=== PATIENT | female | born 1975 | race Caucasian/White ===

== ENCOUNTER → 2018-12-05 15:41 | Outpatient (CLI) | payer OTHER, SELFPAY ==
--- NOTE | 2018-12-05 | DI.MRI.S_ITS ---
PROCEDURE: MR BRAIN (IAC) WWO CON INDICATIONS: Sudden idiopathic hearing loss, right ear. Tinnitus TECHNIQUE: Noncontrast sagittal T1 spin echo, axial FLAIR, axial gradient echo, axial diffusion and ADC through the brain. Axial thin-slice 3D CISS, coronal TruFISP, axial T1 spin echo with fat saturation through the internal auditory canals. After the administration of contrast, thin slice axial and coronal T1 spin echo with fat saturation through the internal auditory canals, and axial T1 spin echo with fat saturation through the brain. COMPARISON: None. FINDINGS: Image quality: Excellent. Cerebellopontine angles: There is an enhancing mass seen within the deep/lateral aspect of the right internal auditory canal that measures 7 x 4 mm in greatest axial dimension, with a craniocaudal extent of 4 mm. No additional masses or abnormal enhancement can be seen involving the internal auditory canals or the cerebellopontine angle cisterns. CSF spaces: Ventricles are normal in size and shape. No extra-axial fluid collections. Basal cisterns are patent. Brain: No intracranial bleeds or mass effects. Alvarado-white matter interface is intact. No abnormal intracranial enhancement. Diffusion weighted images demonstrate no acute ischemic insults. Brainstem appears normal. Normal intravascular flow voids are present. Skull and face: Calvarial marrow signal is normal. Orbits appear normal. Sinuses: Sinuses and mastoids are clear. IMPRESSION: Enhancing mass seen within the right internal auditory canal. The appearance is worrisome for vestibular schwannoma. Dictated by: Prashanth Gutierrez M.D. on 12/05/2018 at 17:27 Approved by: Prashanth Gutierrez M.D. on 12/05/2018 at 17:29
== END ==
LOC: MRI 15:43
PROVIDERS: Family Provider Internal Medicine; PCP Internal Medicine; Visit Provider Otolaryngology
DX: H91.21 Sudden idiopathic hearing loss, right ear (principal); H93.11 Tinnitus, right ear; H61.891 Other specified disorders of right external ear
CPT/HCPCS: 70553; A9579

== ENCOUNTER 2019-07-13 08:25 | Emergency (ER) | payer OTHER, SELFPAY ==
--- NOTE | 2019-07-13 08:35 | ED.SKABFB ---
HPI - Skin/Abscess/Foreign Bdy General Chief complaint: Skin/Abscess/Foreign Body Stated complaint: insect bite on right ankle , fever Time Seen by Provider: 07/13/19 08:27 Source: patient and family Mode of arrival: Ambulatory Limitations: no limitations History of Present Illness HPI narrative: 43F former smoker with diabetes presents with a skin lesion on her right medial ankle for about the past week and then over the past day or so to the development of painful red, warm skin on her anterior limon to the area and if she has had fever off and on and some nausea but denies any vomiting or diarrhea. She denies any chest pain or shortness of breath. She denies runny nose or sore throat. Related Data Previous Rx's Medication Instructions Recorded zolpidem 10 mg tablet 20 mg PO BEDTIME PRN #60 tab 03/08/18 doxycycline monohydrate 100 mg PO BID 10 Days #20 cap 07/13/19 Review of Systems Constitutional Constitutional: Reports chills, Denies fatigue, Reports fever(s), Denies frequent falls, Denies lethargy and Denies weakness Eyes Eyes: Denies change in vision, Denies eye discharge, Denies irritation and Denies loss of vision ENT Ears, Nose, Mouth, and Throat: Denies change in voice, Denies dizziness, Denies neck pain, Denies sore throat and Denies throat swelling Cardiovascular Cardiovascular: Denies chest pain, Denies irregular heart rhythm, Denies lightheadedness, Denies palpitations, Denies dyspnea, Denies dyspnea on exertion and Denies orthopnea Respiratory Respiratory: Denies cough, Denies dyspnea, Denies dyspnea on exertion and Denies wheezing Gastrointestinal Gastrointestinal: Denies abdominal pain, Denies change in bowel habits, Denies diarrhea, Denies nausea and Denies vomiting Genitourinary Genitourinary: Denies hematuria, Denies flank pain, Denies urinary incontinence and Denies urinary urgency Musculoskeletal Musculoskeletal: Denies back pain, Denies muscle weakness, Denies neck pain, Denies numbness and Denies tingling Integumentary/Breasts Skin/Breast: Denies pruritus, Reports erythema, Denies rash, Reports skin pain, Reports skin swelling and Denies wounds Neurologic Neurologic: Denies behavioral changes, Denies confusion, Denies dizziness, Denies frequent falls, Denies loss of vision, Denies numbness, Denies tingling and Denies weakness Psychiatric Psychiatric: Denies anxiety, Denies behavioral changes, Denies confusion, Denies depression, Denies homicidal ideation and Denies suicidal ideation Endocrine Endocrine: Denies fatigue, Denies flushing and Denies palpitations Hematologic/Lymphatic Hematologic/Lymphatic: Denies easy bruising Allergic/Immunologic Allergic/Immunologic: Denies urticaria, Denies throat swelling and Denies wheezing Patient History Medical History (Updated 07/13/19 @ 10:04 by Goldy Kenyon DO) HTN (hypertension) (Chronic) Obesity (BMI 30-39.9) (Chronic) Obstructive sleep apnea of adult (Chronic) Primary insomnia (Chronic) Snoring (Chronic ~1987) Type 2 diabetes mellitus (Chronic) Social History Smoking Status: Former smoker Exam Narrative Exam Narrative: GENERAL: [43] year old patient appears stated age. Obese. A bit anxious HEAD: Atraumatic. Normocephalic. EYES: Pupils equal round and reactive. Extraocular motions intact. No scleral icterus. No injection or drainage. ENT: Nose without bleeding, purulent drainage. Throat without erythema, tonsillar hypertrophy or exudate. Airway patent. NECK: Trachea midline. Non tender CARDIOVASCULAR: Regular rate and rhythm without murmurs, gallops, or rubs. RESPIRATORY: Clear to auscultation. Breath sounds equal bilaterally. No wheezes, rales, or rhonchi. GASTROINTESTINAL: Abdomen soft, non-tender, nondistended. EXTREMITIES: No edema or joint tenderness. BACK: Nontender without deformity or crepitance. No flank tenderness. NEURO: AOx3. SKIN: Erythema of anterior RLE, well circumscribed, no drainage, induration, or fluctuance. Initial Vital Signs Initial Vital Signs: Vital Signs Temperature 97.9 F 07/13/19 08:36 Pulse Rate 90 07/13/19 08:36 Respiratory Rate 14 07/13/19 08:36 Blood Pressure 162/81 H 07/13/19 08:36 Pulse Oximetry 98 07/13/19 08:36 Course Orders Ordered: ED Orders 07/13/19 09:25 Basic Metabolic Panel Stat Blood Culture Stat Complete Blood Count AUTO DIFF Stat Lactate (Lactic Acid) Stat Discontinued Medications Sodium Chloride (Normal Saline 0.9%) 1,000 mls @ 1,000 mls/hr IV BOLUS ONE Stop: 07/13/19 09:34 Last Infusion: 07/13/19 10:43 Dose: 1,000 mls/hr Documented by: Admin: 07/13/19 09:41 Dose: 1,000 mls/hr Documented by: RANDALL Vital Signs Vital signs: Vital Signs - 8 hr 07/13/19 10:31 07/13/19 10:44 Temperature 98 F Pulse Rate 91 H 68 Respiratory Rate 20 13 Blood Pressure 154/88 H Blood Pressure [Left Arm] 164/84 H Pulse Oximetry 99 99 MDM - Skin/Abscess/Foreign Bdy Lab Data Result diagrams: 07/13/19 09:25 07/13/19 09:25 Labs: Lab Results 07/13/19 07/13/19 07/13/19 Range/Units 09:25 09:25 09:25 WBC 9.1 (4.5-11.0) X10^3/uL RBC 4.67 (4.0-5.2) X10^6/uL Hgb 14.5 (12.0-16.0) g/dL Hct 40.4 (36-46) % MCV 86.5 (80-100) fL MCH 30.9 (26-34) PG MCHC 35.8 (30-36) % RDW 12.7 (11.6-14.8) % Plt Count 200 (150-400) X10^3/uL Neut % (Auto) 78.7 H (50-75) % Lymph % (Auto) 13.3 L (25-40) % [place] % (Auto) 6.2 (3-14) % Eos % (Auto) 1.1 L (2-4) % Baso % (Auto) 0.7 (0-2) % Neut # (Auto) 7100 H (5976-1304) /uL Lymph # (Auto) 1200 (2008-7733) /uL [place] # (Auto) 600 (0-900) /uL Eos # (Auto) 100 (0-450) /uL Baso # (Auto) 100 (0-100) /uL Sodium 133 L (137-145) mmol/L Potassium 4.0 (3.4-5.1) mmol/L Chloride 98 (98-107) mmol/L Carbon Dioxide 27 (22-32) mmol/L BUN 12 (7-17) mg/dL Creatinine 0.40 L (0.52-1.04) mg/dL Estimated GFR > 60.0 (>60) mL/min BUN/Creatinine Ratio 30.0 H (6-22) Glucose 460 H (70-100) mg/dL Lactate 1.2 (0.7-2.1) mmol/L Calcium 8.8 (8.4-10.2) mg/dL MDM Narrative Medical decision making narrative: Patient with isolated right anterior limon cellulitis and no septic findings. Vitals are stable and labs are very reassuring. Return precautions given and questions answered to her apparent satisfaction Discharge Plan Departure Patient Disposition: Home Clinical Impression: Cellulitis of leg, right Discharge Date/Time: 07/13/19 10:46 Instructions: DI for Cellulitis -- Adult Activity Restrictions/Additional Instructions: *You have been diagnosed with [acute Right leg cellulitis ] *What to do: *Take medications as directed: prescrip *Follow up with your primary care provider in 2-3 days, call for an appointment. Let them know you were seen in the Emergency Department and that we ask that you be seen in follow up *Return to ER if you should have any new, worsening or concerning symptoms, such as [ ] Prescriptions: New doxycycline monohydrate 100 mg capsule 100 mg PO BID 10 Days Qty: 20 RF: 0 No Action zolpidem 10 mg tablet 20 mg PO BEDTIME PRN (Reason: insomnia) Qty: 60 RF: 2 Referrals: Trino Bales MD [Primary Care Provider] -
[2019-07-13 08:36] VITALS: BP 162/81; PULSE 90; RESP 14; TEMP 36.6; O2SAT 98
[2019-07-13 09:41] LABS: Add Manual Diff / Slide Review NO; Basophils Absolute Auto 100 /uL (0-100); Basophils Percent Auto 0.7 % (0-2); Eosinophils Absolute Auto 100 /uL (0-450); Eosinophils Percent Auto 1.1 % (2-4); Hematocrit 40.4 % (36-46); Hemoglobin 14.5 g/dL (12.0-16.0); Lymphocytes Absolute Auto 1200 /uL (1100-4500); Lymphocytes Percent Auto 13.3 % (25-40); Mean Corpuscular HGB Conc 35.8 % (30-36); Mean Corpuscular Hemoglobin 30.9 PG (26-34); Mean Corpuscular Volume 86.5 fL (80-100); Monocytes Absolute Auto 600 /uL (0-900); Monocytes Percent Auto 6.2 % (3-14); Neutrophils Absolute Auto 7100 /uL (1500-7000); Neutrophils Percent Auto 78.7 % (50-75); Platelet Count 200 X10^3/uL (150-400); Red Blood Cell Count 4.67 X10^6/uL (4.0-5.2); Red Cell Distribution Width 12.7 % (11.6-14.8); White Blood Cell Count 9.1 X10^3/uL (4.5-11.0)
[2019-07-13] MEDS: SODIUM CHLORIDE 0.9% 1,000 ML 1000 ML IV (09:41)
[2019-07-13 09:53] LABS: Lactate (Lactic Acid) 1.2 mmol/L (0.7-2.1)
[2019-07-13 09:54] LABS: Blood Urea Nitrogen 12 mg/dL (7-17); Calcium 8.8 mg/dL (8.4-10.2); Carbon Dioxide 27 mmol/L (22-32); Chloride 98 mmol/L (98-107); Estimated Glomerular Filt Rate > 60.0 mL/min (>60); Glucose 460 mg/dL (70-100); HEMOLYSIS < 15 (0-50); Sodium 133 mmol/L (137-145)
[2019-07-13 10:31] VITALS: BP 164/84; PULSE 91; RESP 20; O2SAT 99
[2019-07-13 10:44] VITALS: BP 154/88; PULSE 68; RESP 13; TEMP 36.6; O2SAT 99
== END 2019-07-13 10:46 | disposition home or self-care (01) ==
PROVIDERS: Emergency Provider Emergency Medicine; Family Provider Internal Medicine; PCP Internal Medicine
DX: L03.115 Cellulitis of right lower limb (principal); Y99.0 Civilian activity done for income or pay
CPT/HCPCS: 36415; 80048; 83605; 85025; 87040; 96360; 99284

== ENCOUNTER 2019-07-15 09:16 | Inpatient (IN) | payer OTHER, SELFPAY ==
[2019-07-15] VITALS (9 sets, daily range): BP systolic 138–174; BP diastolic 71–100; PULSE 80–101; RESP 14–19; TEMP 36.2–37.6; O2SAT 96–100; BMI 49.4
--- NOTE | 2019-07-15 09:54 | ED.SKABFB ---
HPI - Skin/Abscess/Foreign Bdy General Chief complaint: Skin/Abscess/Foreign Body Stated complaint: skin infection right leg Time Seen by Provider: 07/15/19 09:46 Source: patient Mode of arrival: Ambulatory History of Present Illness HPI narrative: Patient is a 43-year-old female who presents with worsening rash on her right leg. She was seen evaluated here 2 days ago started on doxycycline she has had 5 doses as it has gotten significantly worse. She says that she initially was at work she had a bug bite on the lower part of her ankle. There is drainage tear initially she says that has overall improved however she has significant swelling and redness up to just below her knee. It has spread significantly beyond the previously marked decline. She has had fever last night. She does complain of pain and would like something for pain MD complaint: rash Location: RLE Severity: moderate Related Data Home Medications Medication Instructions Recorded Confirmed fluoxetine 60 mg PO QPM 07/15/19 07/15/19 glyburide 5 mg PO BID 07/15/19 07/15/19 losartan 25 mg PO DAILY 07/15/19 07/15/19 methylphenidate HCl 10 mg PO TID 07/15/19 07/15/19 Previous Rx's Medication Instructions Recorded zolpidem 10 mg tablet 20 mg PO BEDTIME PRN #60 tab 03/08/18 doxycycline monohydrate 100 mg PO BID 10 Days #20 cap 07/13/19 Review of Systems Review of Systems Narrative: GENERAL:+ fever Denies chills, fatigue, malaise,sweats, travel HEENT: Denies sinus pain, ear pain, sore throat, difficulty swallowing, neck pain RESPIRATORY: Denies dyspnea, cough, wheezing, hemoptysis, sputum. CARDIOVASCULAR: Denies chest pain, palpitations, orthopnea, edema GASTROINTESTINAL: Denies nausea, vomiting, abdominal pain, diarrhea, constipation, melena. : Denies dysuria, frequency, incontinence, hematuria, urinary retention, flank pain. MUSCULOSKELETAL: Denies weakness, joint pain, or bony pain SKIN: See HPI NEUROLOGIC: Denies weakness, dizziness, headache, numbness, change in speech, confusion PSYCHIATRIC: No concerning psychosocial issues. 12 point review of systems is negative except for those stated above and HPI Patient History Medical History HTN (hypertension) (Chronic) Obesity (BMI 30-39.9) (Chronic) Obstructive sleep apnea of adult (Chronic) Primary insomnia (Chronic) Snoring (Chronic ~1987) Type 2 diabetes mellitus (Chronic) Social History household members: significant other Smoking Status: Former smoker Smoking Status: Former smoker alcohol intake frequency: holidays/special occasions only Substance Use Type: marijuana Exam Initial Vital Signs Initial Vital Signs: Vital Signs Temperature 97.3 F L 07/15/19 09:19 Pulse Rate 82 07/15/19 09:19 Respiratory Rate 14 07/15/19 09:19 Blood Pressure 173/100 H 07/15/19 09:19 Pulse Oximetry 98 07/15/19 09:19 GENERAL: Well-appearing, well-nourished and in no acute distress. HEENT: Head atraumatic,EOMI, pupils reactive CARDIOVASCULAR: Regular rate and rhythm without murmurs, rubs or gallops. RESPIRATORY: Breath sounds equal bilaterally, no wheezes rales or rhonchi. ABDOMEN: Soft, nontender. Normoactive bowel sounds all 4 quadrants. No guarding or rebound. EXTREMITIES: Normal range of motion, no clubbing or edema. Neurovascularly intact NEUROLOGICAL: Alert and oriented x4.Normal gait and speech. Cranial nerves II through XII grossly intact. SKIN: Blanchable erythema right lower leg no vesicles no fluctuation or abscess. She does have couple it areas of scabs but these do not appear infected Course Orders Ordered: ED Orders 07/15/19 09:50 Complete Blood Count AUTO DIFF Stat Comprehensive Metabolic Panel Stat D Dimer Stat Lactate (Lactic Acid) Stat Procalcitonin Stat 07/15/19 10:40 US periph venous low extrem rt Stat 07/15/19 10:45 Blood Culture Stat Acetaminophen (Tylenol) 650 mg PO Q6HR PRN PRN Reason: Fever/Mild Pain (1-3) Last Admin: 07/15/19 14:20 Dose: 650 mg Documented by: CHAZ Allen Hydrox/Mg Hydrox/Simethicone (Maalox Plus) 30 ml PO Q6HR PRN PRN Reason: Dyspepsia Bisacodyl (Dulcolax) 10 mg AK DAILY PRN PRN Reason: Constipation Calcium Carbonate (Tums) 1,000 mg PO Q4HR PRN PRN Reason: Dyspepsia Dextrose (D50w) 25 gm IV PRN PRN; Protocol PRN Reason: Hypoglycemia Fluoxetine HCl (Prozac) 60 mg PO QPM [facility] Glyburide (Glyburide) 5 mg PO BID [facility] Heparin Sodium (Porcine) (Heparin) 5,000 unit SUBCUT BID [facility] Sodium Chloride (Normal Saline 0.9%) 1,000 mls @ 100 mls/hr IV CONT [facility] Stop: 07/16/19 00:14 Last Admin: 07/15/19 14:40 Dose: 100 mls/hr Documented by: CHAZ Ceftriaxone Sodium/Dextrose (Rocephin) 2 gm in 50 mls @ 100 mls/hr IV Q24H [facility] Vancomycin HCl/Dextrose (Vancomycin) 1,500 mg in 300 mls @ 200 mls/hr IV Q8H [facility] Insulin Aspart (Novolog Flexpen) 0 unit SUBCUT ACHS [facility]; Protocol Ketorolac Tromethamine (Toradol) 30 mg IV Q6HR PRN PRN Reason: Pain, Severe (7-10) Stop: 07/20/19 13:31 Last Admin: 07/15/19 14:09 Dose: 30 mg Documented by: CHAZ Losartan Potassium (Cozaar) 25 mg PO DAILY [facility] Magnesium Hydroxide (Milk Of Magnesia) 30 ml PO DAILY PRN PRN Reason: Constipation Naloxone HCl (Narcan) 0.2 mg IV Q2MIN PRN PRN Reason: Opiate Reversal Ondansetron HCl (Zofran) 4 mg IV Q6HR PRN PRN Reason: Nausea And Vomiting Promethazine HCl (Phenadoz) 12.5 mg AK Q6HR PRN PRN Reason: Nausea And Vomiting Vancomycin HCl (Vancomycin Trough) 1 request MISC 1030 [facility] Stop: 07/16/19 10:31 Zolpidem Tartrate (Ambien) 20 mg PO BEDTIME PRN PRN Reason: insomnia Discontinued Medications Vancomycin HCl/Dextrose (Vancomycin) 2,000 mg in 400 mls @ 200 mls/hr IV NOW ONE Stop: 07/15/19 12:02 Last Admin: 07/15/19 10:27 Dose: 200 mls/hr Documented by: RANDALL Ceftriaxone Sodium/Dextrose (Rocephin) 2 gm in 50 mls @ 100 mls/hr IV NOW ONE Stop: 07/15/19 10:32 Last Infusion: 01/13/20 11:33 Dose: 0 mls/hr Documented by: Admin: 07/15/19 10:22 Dose: 100 mls/hr Documented by: RANDALL Insulin Human Regular (Humulin R) 10 unit IV NOW ONE Stop: 07/15/19 14:13 Last Admin: 07/15/19 14:49 Dose: 10 unit Documented by: CHAZ Cosigned by: IVY Vital Signs Vital signs: Vital Signs - 8 hr 07/15/19 09:19 07/15/19 11:21 Temperature 97.3 F L 99.6 F Pulse Rate 82 95 H Respiratory Rate 14 19 Blood Pressure 173/100 H Blood Pressure [Right Wrist] 171/82 H Pulse Oximetry 98 100 MDM - Skin/Abscess/Foreign Bdy Lab Data Attestation: I reviewed the patient's lab results. Result diagrams: 07/15/19 09:50 07/15/19 09:50 Labs: Lab Results 07/15/19 07/15/19 07/15/19 Range/Units 09:50 09:50 09:50 WBC 7.8 (4.5-11.0) X10^3/uL RBC 4.87 (4.0-5.2) X10^6/uL Hgb 14.7 (12.0-16.0) g/dL Hct 42.0 (36-46) % MCV 86.1 (80-100) fL MCH 30.2 (26-34) PG MCHC 35.0 (30-36) % RDW 12.7 (11.6-14.8) % Plt Count 252 (150-400) X10^3/uL Neut % (Auto) 68.4 (50-75) % Lymph % (Auto) 20.0 L (25-40) % [place] % (Auto) 8.7 (3-14) % Eos % (Auto) 2.0 (2-4) % Baso % (Auto) 0.9 (0-2) % Neut # (Auto) 5400 (2560-9393) /uL Lymph # (Auto) 1600 (6343-4557) /uL [place] # (Auto) 700 (0-900) /uL Eos # (Auto) 200 (0-450) /uL Baso # (Auto) 100 (0-100) /uL D-Dimer (<230) ng/mL Sodium 136 L (137-145) mmol/L Potassium 4.3 (3.4-5.1) mmol/L Chloride 97 L (98-107) mmol/L Carbon Dioxide 30 (22-32) mmol/L BUN 11 (7-17) mg/dL Creatinine 0.40 L (0.52-1.04) mg/dL Estimated GFR > 60.0 (>60) mL/min BUN/Creatinine Ratio 27.5 H (6-22) Glucose 412 H (70-100) mg/dL Hemoglobin A1c (4.0-6.0) % Lactate 1.4 (0.7-2.1) mmol/L Calcium 9.8 (8.4-10.2) mg/dL Total Bilirubin 0.8 (0.2-1.3) mg/dL AST 32 (14-36) IU/L ALT 29 (<35) IU/L Alkaline Phosphatase 83 (38-126) U/L Total Protein 7.6 (6.3-8.2) g/dL Albumin 4.3 (3.5-5.0) g/dL Globulin 3.3 (1.7-4.1) g/dL Albumin/Globulin Ratio 1.3 (1.0-2.8) Procalcitonin (<0.5) ng/mL 07/15/19 07/15/19 07/15/19 Range/Units 09:50 09:50 09:50 WBC (4.5-11.0) X10^3/uL RBC (4.0-5.2) X10^6/uL Hgb (12.0-16.0) g/dL Hct (36-46) % MCV (80-100) fL MCH (26-34) PG MCHC (30-36) % RDW (11.6-14.8) % Plt Count (150-400) X10^3/uL Neut % (Auto) (50-75) % Lymph % (Auto) (25-40) % [place] % (Auto) (3-14) % Eos % (Auto) (2-4) % Baso % (Auto) (0-2) % Neut # (Auto) (7538-8101) /uL Lymph # (Auto) (6869-9792) /uL [place] # (Auto) (0-900) /uL Eos # (Auto) (0-450) /uL Baso # (Auto) (0-100) /uL D-Dimer 307 H (<230) ng/mL Sodium (137-145) mmol/L Potassium (3.4-5.1) mmol/L Chloride (98-107) mmol/L Carbon Dioxide (22-32) mmol/L BUN (7-17) mg/dL Creatinine (0.52-1.04) mg/dL Estimated GFR (>60) mL/min BUN/Creatinine Ratio (6-22) Glucose (70-100) mg/dL Hemoglobin A1c 11.0 H (4.0-6.0) % Lactate (0.7-2.1) mmol/L Calcium (8.4-10.2) mg/dL Total Bilirubin (0.2-1.3) mg/dL AST (14-36) IU/L ALT (<35) IU/L Alkaline Phosphatase (38-126) U/L Total Protein (6.3-8.2) g/dL Albumin (3.5-5.0) g/dL Globulin (1.7-4.1) g/dL Albumin/Globulin Ratio (1.0-2.8) Procalcitonin 0.37 (<0.5) ng/mL Imaging Data US - DVT: Radiologist's Impression: PROCEDURE: US PERIPH VENOUS LOW EXTREM RT INDICATIONS: +DIMER TECHNIQUE: Real-time imaging, as well as color and pulse Doppler interrogation, were performed of the lower extremity deep veins from the inguinal ligament to the popliteal fossa. COMPARISON: None. FINDINGS: The common femoral, femoral and popliteal veins are normally compressible, and free of intraluminal thrombus. Color and pulse Doppler demonstrate normal phasic intraluminal flow. There is normal augmentation response to distal compression maneuver. IMPRESSION: No evidence of deep vein thrombosis of the bilateral lower extremities. Dictated by: Blaise Eller M.D. on 07/15/2019 at 10:19 MDM Narrative Medical decision making narrative: Patient has failed outpatient treatment. You can see that she has significant worsening erythema of her right lower leg. She did have an elevated D-dimer with a negative Doppler study. This seems to be more cellulitis rather than DVT. She does have elevated procalcitonin however no leukocytosis or fever likely due to partial treatment. She is given vancomycin and Rocephin. Dr. rubio updated on patient's symptoms test results and is happy to accept patient. Discharge Plan Departure Patient Disposition: Admitted As Inpatient Clinical Impression: Cellulitis Qualifiers: Site of cellulitis: extremity Site of cellulitis of extremity: lower extremity Laterality: right Qualified Code(s): L03.115 - Cellulitis of right lower limb Discharge Date/Time: 07/15/19 13:01 Admit Date/Time: 07/15/19 12:04 Admit Provider: Trinidad Rubio
[2019-07-15 10:08] LABS: Add Manual Diff / Slide Review NO; Basophils Absolute Auto 100 /uL (0-100); Basophils Percent Auto 0.9 % (0-2); Eosinophils Absolute Auto 200 /uL (0-450); Hemoglobin 14.7 g/dL (12.0-16.0); Lymphocytes Absolute Auto 1600 /uL (1100-4500); Mean Corpuscular Hemoglobin 30.2 PG (26-34); Mean Corpuscular Volume 86.1 fL (80-100); Monocytes Absolute Auto 700 /uL (0-900); Monocytes Percent Auto 8.7 % (3-14); Neutrophils Absolute Auto 5400 /uL (1500-7000); Neutrophils Percent Auto 68.4 % (50-75); Platelet Count 252 X10^3/uL (150-400); Red Blood Cell Count 4.87 X10^6/uL (4.0-5.2); Red Cell Distribution Width 12.7 % (11.6-14.8); White Blood Cell Count 7.8 X10^3/uL (4.5-11.0)
[2019-07-15 10:10] LABS: Lactate (Lactic Acid) 1.4 mmol/L (0.7-2.1)
[2019-07-15 10:11] LABS: Alanine Aminotransferase 29 IU/L (<35); Albumin 4.3 g/dL (3.5-5.0); Albumin Globulin Ratio 1.3 (1.0-2.8); Alkaline Phosphatase 83 U/L (38-126); Aspartate Aminotransferase 32 IU/L (14-36); BUN Creatinine Ratio 27.5 (6-22); Bilirubin Total 0.8 mg/dL (0.2-1.3); Blood Urea Nitrogen 11 mg/dL (7-17); Calcium 9.8 mg/dL (8.4-10.2); Carbon Dioxide 30 mmol/L (22-32); Chloride 97 mmol/L (98-107); Estimated Glomerular Filt Rate > 60.0 mL/min (>60); Globulin 3.3 g/dL (1.7-4.1); Glucose 412 mg/dL (70-100); HEMOLYSIS < 15 (0-50); Potassium 4.3 mmol/L (3.4-5.1); Sodium 136 mmol/L (137-145); Total Protein 7.6 g/dL (6.3-8.2)
[2019-07-15] MEDS: CEFTRIAXONE 2 GM/50 ML FROZ.PIGGY IV (10:22)
[2019-07-15 10:27] LABS: D Dimer 307 ng/mL (<230)
[2019-07-15] MEDS: VANCOMYCIN 2,000 MG/400 ML PIGGYBACK 200 MG IV (10:27)
--- NOTE | 2019-07-15 10:40 | DI.US.S_ITS ---
PROCEDURE: US PERIPH VENOUS LOW EXTREM RT INDICATIONS: +DIMER TECHNIQUE: Real-time imaging, as well as color and pulse Doppler interrogation, were performed of the lower extremity deep veins from the inguinal ligament to the popliteal fossa. COMPARISON: None. FINDINGS: The common femoral, femoral and popliteal veins are normally compressible, and free of intraluminal thrombus. Color and pulse Doppler demonstrate normal phasic intraluminal flow. There is normal augmentation response to distal compression maneuver. IMPRESSION: No evidence of deep vein thrombosis of the bilateral lower extremities. Dictated by: Blaise Eller M.D. on 07/15/2019 at 10:19 Approved by: Blaise Eller M.D. on 07/15/2019 at 10:19
[2019-07-15 10:52] LABS: Procalcitonin 0.37 ng/mL (<0.5)
--- NOTE | 2019-07-15 12:58 | PC.NURSE ---
Day shift: Pt on unit from ED at approx 1300. Pt is ambulatory. A&Ox4. Calm and cooperative. IV antibiotic infusing that started in ED. Will continue on AC unit. Oriented to room and call light. Pt's Mother in room for support.
[2019-07-15] MEDS: KETOROLAC 30 MG/ML VIAL IV ×2 (14:09→19:40)
--- NOTE | 2019-07-15 14:15 | PM.HP.1 ---
History of Present Illness History of Present Illness Date Patient Seen: 07/15/19 Chief complaint: skin infection right leg Narrative: Mary Anne Maria is a 43-year-old female with a past medical history significant for hypertension, diabetes mellitus type 2, non-insulin using, with complication of neuropathy, obstructive sleep apnea on CPAP, right temporal meningioma with chronic right-sided tinnitus, depression with anxiety, and attention deficit disorder who presented to the ED due to worsening cellulitis. The patient reports that she was previously seen in the ED 2 days ago for right lower extremity rash and discharged on doxycycline. She has had approximately 5 doses of doxycycline. Her rash has worsened prompting her to be re-evaluated. She reports that the rash is hot, has a burning quality at rest and causes excruciating pain with standing. She believes the rash developed after an insect bite on her Achilles. She reports associated high fevers up to 102.7? F and 1 episode of nausea with vomiting. She endorses chronic lightheadedness due to meningioma and polydipsia and polyuria due to uncontrolled diabetes. She otherwise has no other symptoms and denies headache, vision changes, chest pain, shortness of breath, nausea, vomiting, chills, dysuria, diarrhea or constipation. Patient History Medical History (Updated 07/15/19 @ 16:36 by Trinidad Corrigan DO) Attention deficit disorder (Acute) Depression with anxiety (Acute) HTN (hypertension) (Chronic) Meningioma (Acute) Morbid obesity with BMI of 45.0-49.9, adult (Acute) Obstructive sleep apnea of adult (Chronic) Primary insomnia (Chronic) Snoring (Chronic ~1987) Tinnitus of right ear (Acute) Type 2 diabetes mellitus (Chronic) Surgical History History of cholecystectomy (Acute) Family & Social History Family History Father No problems noted. Mother Diabetes mellitus Social History: household members significant other Prior Living Arrangements House Safety & Behavioral: Feels Safe in Current Yes Environment Been Physically Hurt or No Threatened By a Person Suicidal Ideation Description None Suicide Plan Description No Plan Tobacco & Substance use: Smoking Status Former smoker alcohol intake frequency holiday/special occasion Substance Use Type marijuana The patient has a partner of 15 years. She has no children. 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 She is a former smoker of 1 pack per week x5 years. She does not use alcohol. She vaporizes marijuana. Meds Home Medications and Allergies Home Medications Medication Instructions Recorded Confirmed Type zolpidem 10 mg tablet 20 mg PO BEDTIME PRN #60 tab 03/08/18 07/15/19 Rx doxycycline monohydrate 100 mg PO BID 10 Days #20 cap 07/13/19 07/15/19 Rx fluoxetine 60 mg PO QPM 07/15/19 07/15/19 History glyburide 5 mg PO BID 07/15/19 07/15/19 History losartan 25 mg PO DAILY 07/15/19 07/15/19 History methylphenidate HCl 10 mg PO TID 07/15/19 07/15/19 History Review of Systems Review of Systems Narrative: A 10 system comprehensive review of systems was conducted with the patient and found to be negative except as above in the History of Present Illness. Exam Vital Signs (past 8 hours): - 07/15/19 09:19 07/15/19 11:21 07/15/19 12:28 Temperature 97.3 F L 99.6 F Pulse Rate 82 95 H 99 H Respiratory Rate 14 19 19 Blood Pressure 173/100 H Blood Pressure [Right Wrist] 171/82 H 174/86 H Pulse Oximetry 98 100 98 07/15/19 13:15 07/15/19 13:53 Temperature 98.7 F 98.7 F Pulse Rate 101 H 101 H Respiratory Rate 17 17 Blood Pressure 147/84 H 147/84 H Blood Pressure [Right Wrist] Pulse Oximetry 98 98 Oxygen Delivery Method Room Air Oxygen Flow Rate 0 Narrative Exam Narrative: General: Middle-aged morbidly obese female lying in bed and in no acute distress, well-developed, well-nourished, appropriately interactive. HEENT: Normocephalic, atraumatic. External ears without defect. Pupils equal, round, and reactive to light. Anicteric sclerae, moist conjunctivae, and no lid lag. Oropharynx free of erythema and cobble stoning with moist mucosa. Neck: Supple with full range of motion. No lymphadenopathy or thyromegaly. Cardiovascular: Regular rate and rhythm without murmurs, rubs, or gallops appreciated. Pulmonary: Clear to auscultation bilaterally without crackles, wheezes, or rhonchi. Normal respiratory effort with no use of accessory muscles. Abdomen: Soft, obese, bowel sounds present, nontender, nondistended. No hepatosplenomegaly or masses appreciated. Extremities: No clubbing, cyanosis, or edema. Right lower extremity with well demarcated and outlined rash that is blotchy, erythematous, and warm over medial aspect of right leg from ankle to knee. Skin: Normal temperature, turgor, and texture; no rash, ulcers, or subcutaneous nodules appreciated. Neurological: Cranial nerves grossly intact. Psychiatric: Normal mood and affect. Alert and oriented to person, place, and time. Objective Labs Result Diagrams: 07/15/19 09:50 07/15/19 09:50 Labs: Laboratory Results - last 24 hr 07/15/19 07/15/19 07/15/19 09:50 09:50 09:50 WBC 7.8 RBC 4.87 Hgb 14.7 Hct 42.0 MCV 86.1 MCH 30.2 MCHC 35.0 RDW 12.7 Plt Count 252 Neut % (Auto) 68.4 Lymph % (Auto) 20.0 L [place] % (Auto) 8.7 Eos % (Auto) 2.0 Baso % (Auto) 0.9 Neut # (Auto) 5400 Lymph # (Auto) 1600 [place] # (Auto) 700 Eos # (Auto) 200 Baso # (Auto) 100 D-Dimer Sodium 136 L Potassium 4.3 Chloride 97 L Carbon Dioxide 30 BUN 11 Creatinine 0.40 L Estimated GFR > 60.0 BUN/Creatinine Ratio 27.5 H Glucose 412 H Lactate 1.4 Calcium 9.8 Total Bilirubin 0.8 AST 32 ALT 29 Alkaline Phosphatase 83 Total Protein 7.6 Albumin 4.3 Globulin 3.3 Albumin/Globulin Ratio 1.3 Procalcitonin 07/15/19 07/15/19 09:50 09:50 WBC RBC Hgb Hct MCV MCH MCHC RDW Plt Count Neut % (Auto) Lymph % (Auto) Clay % (Auto) Eos % (Auto) Baso % (Auto) Neut # (Auto) Lymph # (Auto) Clay # (Auto) Eos # (Auto) Baso # (Auto) D-Dimer 307 H Sodium Potassium Chloride Carbon Dioxide BUN Creatinine Estimated GFR BUN/Creatinine Ratio Glucose Lactate Calcium Total Bilirubin AST ALT Alkaline Phosphatase Total Protein Albumin Globulin Albumin/Globulin Ratio Procalcitonin 0.37 Assessment & Plan Assessment & Plan narrative: Mary Anne Maria is a 43-year-old female with a past medical history significant for hypertension, diabetes mellitus type 2, non-insulin using, with complication of neuropathy, obstructive sleep apnea on CPAP, right temporal meningioma with chronic right-sided tinnitus, depression with anxiety, and attention deficit disorder who presented to the ED due to worsening cellulitis. 1. Acute non purulent right lower extremity cellulitis, present on admission. Active. -Patient reports bug bite that led to development of a rash on right leg with associated high fevers for which she was seen for previously in ED 2 days ago and discharged on doxycycline for which the patient has now failed. Patient previously had purulent drainage from bug bite. -No systemic signs of infection with normal WBC 7.8 and procalcitonin 0.37, however, patient has been previously on doxycycline. Continue to monitor WBC and procalcitonin daily. -Bilateral lower extremity venous Doppler ultrasound did not demonstrate any DVTs. -Ordered 1 L of normal saline to be given at 100 mL/hr. -Received vancomycin per pharmacist and ceftriaxone 2 g IV x1 in ED. Continue ceftriaxone 2 g IV daily and vancomycin with dosing per pharmacist. -Continue conservative management including: Frequent elevation of right lower extremity above the level of the heart, ice packs, pain medication. 2. Diabetes mellitus type 2, non-insulin using, chronic, present on admission. Stable. -Patient has been inconsistent with diabetic management and counseled patient extensively on diabetes mellitus type 2 and complications associated. -Hemoglobin A1c 11.0% indicative of poor glycemic control. -Initial glucose level 412. Received regular insulin 10 units IV x1 with repeat blood glucose 373. Ordered another dose of regular insulin 10 units IV x1. -Continue [facility] blood glucose checks and medium dose correctional scale insulin. -Started Lantus 30 units daily at bedtime. -Continue glyburide 5 mg twice daily. Patient has not tolerated metformin in the past due to GI upset. Discussed taking metformin with food and efficacy for which the patient would like to try this again. -Continue carbohydrate consistent diet. -Patient has complication of neuropathy with a burning sensation in bilateral feet. Recommended patient have feet checked twice a year and eyes checked at least annually. May consider gabapentin for neuropathy. 3. Hypertension, chronic, present on admission. Stable. -Initial BP 162/81 which may have some aspect of pain component but appears to be persistently elevated above 140 mmHg. -Continue losartan increased from 25 mg to 50 mg daily. May titrate up further if needed. 4. Obstructive sleep apnea on CPAP, chronic, present on admission. Stable. -Ordered GOMEZ protocol. Encouraged patient to have her partner bring in her CPAP. 5. Right temporal meningioma with chronic right-sided tinnitus, chronic, present on admission. Stable. -Currently under surveillance by neurology at [facility], Dr. Gilmer Nunez. 6. Depression with anxiety, chronic, present on admission. Stable. -Continue fluoxetine 60 mg daily at bedtime. 7. Attention deficit disorder, chronic, present on admission. Stable. -Continue methylphenidate 10 mg 3 times daily. 8. Insomnia, chronic, present on admission. Stable. -Continue zolpidem 20 mg daily at bedtime as needed for insomnia. Code status: Full code VTE prophylaxis: SQ Heparin Patient is admitted under inpatient status with expected length of stay greater than 2 midnights due to severity of presenting symptoms, risk of adverse event, and complexity of treatment plan.
[2019-07-15] MEDS: ACETAMINOPHEN 325 MG TABLET 650 MG PO ×2 (14:20→19:40)
[2019-07-15] MEDS: SODIUM CHLORIDE 0.9% 1,000 ML 100 ML IV (14:40)
[2019-07-15] MEDS: INSULIN REGULAR 100 UNIT/ML 3 ML VIAL 10 UNIT IV ×2 (14:49→17:05)
[2019-07-15] MEDS: METHYLPHENIDATE 5 MG TABLET 10 MG PO ×2 (15:39→20:49)
[2019-07-15] MEDS: FLUoxetine 20 MG CAPSULE 60 MG PO (17:04)
[2019-07-15] MEDS: INSULIN ASPART 100 UNIT/ML INSULN PEN SUBCUT ×2 (17:05→20:51)
[2019-07-15] MEDS: METFORMIN XR 500 MG TABLET PO (19:35)
[2019-07-15] MEDS: VANCOMYCIN 1,500 MG/300 ML FROZ.PIGGY 200 MG IV (19:36)
[2019-07-15] MEDS: HEPARIN 5,000 UNIT/ML VIAL 5000 UNIT SUBCUT (20:49)
[2019-07-15] MEDS: glyBURIDE 5 MG TABLET PO (20:50)
[2019-07-15] MEDS: INSULIN GLARGINE 100 UNIT/ML 3ML PEN 30 UNIT SUBCUT (20:51)
[2019-07-15] MEDS: GABAPENTIN 100 MG CAPSULE PO (20:53)
[2019-07-15] MEDS: ZOLPIDEM 5 MG TABLET 20 MG PO (23:30)
[2019-07-16] VITALS (12 sets, daily range): BP systolic 137–151; BP diastolic 77–92; PULSE 85–101; RESP 18–20; TEMP 36.1–37.1; O2SAT 96–99
--- NOTE | 2019-07-16 01:35 | PC.NURSE ---
Patient is alert and oriented. Breath sounds diminished but CTA with RA sat of 97%; now on home bipap for night. HRR. Denies nausea. BT present and abdomen is soft. Denies dysuria, frequency or urgency with urination. Able to turn self in bed. Up to bathroom with SBA. Has light pink areas on left side of abdomen, left thigh and above left knee/on knee; areas on legs she states are from cat scratch. Bruising noted on bilateral UE. Erythemic spotty rash on right LE remaining within previously drawn borders; leg is slightly swollen are warm to touch. Has couple spots on right lower leg which patient states are bug bite along with scabbed abrasion on medially above ankle. Also noted to have abrasion between nares which she states is from her home bipap. Chronic numbness in toes bilaterally. States pain in right LE is 4/10 and stinging but tolerable and declines pain medication. Right LE is elevated on pillows above level of heart. Calf SCD placed on left LE. Fall risk score is high and bed alarm is activated. Placed on contact isolation as patient had positive MRSA nasal swab.
[2019-07-16] MEDS: VANCOMYCIN 1,500 MG/300 ML FROZ.PIGGY 200 MG IV ×2 (02:33→12:01)
[2019-07-16 06:16] LABS: Add Manual Diff / Slide Review NO; Basophils Absolute Auto 0 /uL (0-100); Basophils Percent Auto 0.5 % (0-2); Eosinophils Absolute Auto 200 /uL (0-450); Eosinophils Percent Auto 1.9 % (2-4); Hematocrit 39.4 % (36-46); Hemoglobin 13.5 g/dL (12.0-16.0); Lymphocytes Absolute Auto 1300 /uL (1100-4500); Lymphocytes Percent Auto 14.3 % (25-40); Mean Corpuscular HGB Conc 34.2 % (30-36); Mean Corpuscular Hemoglobin 29.6 PG (26-34); Mean Corpuscular Volume 86.5 fL (80-100); Monocytes Absolute Auto 700 /uL (0-900); Monocytes Percent Auto 8.1 % (3-14); Neutrophils Absolute Auto 6900 /uL (1500-7000); Neutrophils Percent Auto 75.2 % (50-75); Platelet Count 230 X10^3/uL (150-400); Red Blood Cell Count 4.55 X10^6/uL (4.0-5.2); Red Cell Distribution Width 12.8 % (11.6-14.8); White Blood Cell Count 9.1 X10^3/uL (4.5-11.0)
[2019-07-16 06:28] LABS: BUN Creatinine Ratio 32.5 (6-22); Blood Urea Nitrogen 13 mg/dL (7-17); Calcium 8.8 mg/dL (8.4-10.2); Carbon Dioxide 29 mmol/L (22-32); Chloride 100 mmol/L (98-107); Cholesterol 189 mg/dL (140-199); Estimated Glomerular Filt Rate > 60.0 mL/min (>60); Glucose 263 mg/dL (70-100); HDL Cholesterol 36 mg/dL (40-60); HEMOLYSIS < 15 (0-50); LDL Cholesterol Calculated 124 mg/dL (<100); Potassium 4.3 mmol/L (3.4-5.1); Sodium 136 mmol/L (137-145); Triglycerides 143 mg/dL (35-150)
[2019-07-16 06:58] LABS: TSH w/ Reflex to FT4 1.05 uIU/mL (0.47-4.68)
[2019-07-16 07:03] LABS: Procalcitonin 0.18 ng/mL (<0.5)
--- NOTE | 2019-07-16 08:36 | PM.PN.1 ---
Subjective Subjective Date Patient Seen: 07/16/19 Interval history: Mary Anne Maria is a 43-year-old female with a past medical history significant for hypertension, diabetes mellitus type 2, non-insulin using, with complication of neuropathy, obstructive sleep apnea on CPAP, right temporal meningioma with chronic right-sided tinnitus, depression with anxiety, and attention deficit disorder who presented to the ED due to worsening cellulitis. The patient is resting in bed comfortably. She reports that her cellulitis has improved in regard less warm, erythematous and burning sensation has improved. Her cellulitis has regressed slightly from previously outlined margins. She is somewhat somnolent likely due to gabapentin and will change this to scheduled at bedtime only. She has no other complaints and denies headache, shortness of breath, chest pain, abdominal pain, nausea, vomiting, fever, chills, dysuria, diarrhea or constipation. She is voiding without difficulty. She has not had a bowel movement since admission and an as needed bowel regimen has been implemented. She is up ambulating without assistance. Exam Vital Signs (past 8 hours): - 07/16/19 03:50 07/16/19 08:00 Temperature 98.7 F 98.3 F Pulse Rate 98 H 101 H Respiratory Rate 18 18 Blood Pressure 147/77 H 148/89 H Pulse Oximetry 99 97 Oxygen Delivery Method Room Air,BiPAP Oxygen Flow Rate 0 Narrative Exam Narrative: General: Middle-aged morbidly obese female lying in bed and in no acute distress, well-developed, well-nourished, appropriately interactive. HEENT: Normocephalic, atraumatic. External ears without defect. Pupils equal, round, and reactive to light. Anicteric sclerae, moist conjunctivae, and no lid lag. Oropharynx free of erythema and cobble stoning with moist mucosa. Neck: Supple with full range of motion. No lymphadenopathy or thyromegaly. Cardiovascular: Regular rate and rhythm without murmurs, rubs, or gallops appreciated. Pulmonary: Clear to auscultation bilaterally without crackles, wheezes, or rhonchi. Normal respiratory effort with no use of accessory muscles. Abdomen: Soft, obese, bowel sounds present, nontender, nondistended. No hepatosplenomegaly or masses appreciated. Extremities: No clubbing, cyanosis, or edema. Right lower extremity with well demarcated rash that is regressing from previously outlined margins. The rash is blotchy, erythematous, and warmwhich has improved and is located over medial aspect of right leg from ankle to knee. Skin: Normal temperature, turgor, and texture; no rash, ulcers, or subcutaneous nodules appreciated. Neurological: Cranial nerves grossly intact. Psychiatric: Normal mood and affect. Alert and oriented to person, place, and time. Objective Labs Result Diagrams: 07/16/19 05:49 07/16/19 05:49 Labs: Laboratory Results - last 24 hr 07/15/19 07/15/19 07/15/19 09:50 09:50 09:50 WBC 7.8 RBC 4.87 Hgb 14.7 Hct 42.0 MCV 86.1 MCH 30.2 MCHC 35.0 RDW 12.7 Plt Count 252 Neut % (Auto) 68.4 Lymph % (Auto) 20.0 L [place] % (Auto) 8.7 Eos % (Auto) 2.0 Baso % (Auto) 0.9 Neut # (Auto) 5400 Lymph # (Auto) 1600 [place] # (Auto) 700 Eos # (Auto) 200 Baso # (Auto) 100 D-Dimer Sodium 136 L Potassium 4.3 Chloride 97 L Carbon Dioxide 30 BUN 11 Creatinine 0.40 L Estimated GFR > 60.0 BUN/Creatinine Ratio 27.5 H Glucose 412 H Hemoglobin A1c Lactate 1.4 Calcium 9.8 Total Bilirubin 0.8 AST 32 ALT 29 Alkaline Phosphatase 83 Total Protein 7.6 Albumin 4.3 Globulin 3.3 Albumin/Globulin Ratio 1.3 Triglycerides Cholesterol LDL Cholesterol, Calc HDL Cholesterol Procalcitonin TSH Nasal Screen MRSA (PCR) 07/15/19 07/15/19 07/15/19 09:50 09:50 09:50 WBC RBC Hgb Hct MCV MCH MCHC RDW Plt Count Neut % (Auto) Lymph % (Auto) [place] % (Auto) Eos % (Auto) Baso % (Auto) Neut # (Auto) Lymph # (Auto) [place] # (Auto) Eos # (Auto) Baso # (Auto) D-Dimer 307 H Sodium Potassium Chloride Carbon Dioxide BUN Creatinine Estimated GFR BUN/Creatinine Ratio Glucose Hemoglobin A1c 11.0 H Lactate Calcium Total Bilirubin AST ALT Alkaline Phosphatase Total Protein Albumin Globulin Albumin/Globulin Ratio Triglycerides Cholesterol LDL Cholesterol, Calc HDL Cholesterol Procalcitonin 0.37 TSH Nasal Screen MRSA (PCR) 07/15/19 07/16/19 07/16/19 20:00 05:49 05:49 WBC 9.1 RBC 4.55 Hgb 13.5 Hct 39.4 MCV 86.5 MCH 29.6 MCHC 34.2 RDW 12.8 Plt Count 230 Neut % (Auto) 75.2 H Lymph % (Auto) 14.3 L [place] % (Auto) 8.1 Eos % (Auto) 1.9 L Baso % (Auto) 0.5 Neut # (Auto) 6900 Lymph # (Auto) 1300 [place] # (Auto) 700 Eos # (Auto) 200 Baso # (Auto) 0 D-Dimer Sodium Potassium Chloride Carbon Dioxide BUN Creatinine Estimated GFR BUN/Creatinine Ratio Glucose Hemoglobin A1c Lactate Calcium Total Bilirubin AST ALT Alkaline Phosphatase Total Protein Albumin Globulin Albumin/Globulin Ratio Triglycerides Cholesterol LDL Cholesterol, Calc HDL Cholesterol Procalcitonin 0.18 TSH Nasal Screen MRSA (PCR) Positive for mrsa H 07/16/19 07/16/19 05:49 05:49 WBC RBC Hgb Hct MCV MCH MCHC RDW Plt Count Neut % (Auto) Lymph % (Auto) [place] % (Auto) Eos % (Auto) Baso % (Auto) Neut # (Auto) Lymph # (Auto) [place] # (Auto) Eos # (Auto) Baso # (Auto) D-Dimer Sodium 136 L Potassium 4.3 Chloride 100 Carbon Dioxide 29 BUN 13 Creatinine 0.40 L Estimated GFR > 60.0 BUN/Creatinine Ratio 32.5 H Glucose 263 H D Hemoglobin A1c Lactate Calcium 8.8 Total Bilirubin AST ALT Alkaline Phosphatase Total Protein Albumin Globulin Albumin/Globulin Ratio Triglycerides 143 Cholesterol 189 LDL Cholesterol, Calc 124 H HDL Cholesterol 36 L Procalcitonin TSH 1.05 Nasal Screen MRSA (PCR) Assessment & Plan Assessment & Plan narrative: Mary Anne Maria is a 43-year-old female with a past medical history significant for hypertension, diabetes mellitus type 2, non-insulin using, with complication of neuropathy, obstructive sleep apnea on CPAP, right temporal meningioma with chronic right-sided tinnitus, depression with anxiety, and attention deficit disorder who presented to the ED due to worsening cellulitis. 1. Acute non-purulent right lower extremity cellulitis, present on admission. Active. -Patient reports bug bite that led to development of a rash on right leg with associated high fevers for which she was seen for previously in ED 2 days ago and discharged on doxycycline for which the patient has now failed. Patient previously had purulent drainage from bug bite. -No systemic signs of infection with normal WBC 7.8 and procalcitonin 0.37, however, patient has been previously on doxycycline. Continue to monitor WBC and procalcitonin daily. -Bilateral lower extremity venous Doppler ultrasound did not demonstrate any DVTs. -Received 1 L of normal saline at 100 mL/hr then discontinued as she is adequately hydrated. -MRSA screen positive. Plan to eradicate the patient of MRSA as an outpatient per PCP once cellulitis has completely resolved. -Received vancomycin per pharmacist and ceftriaxone 2 g IV x1 in ED. Continue ceftriaxone 2 g IV daily and vancomycin with dosing per pharmacist. -Continue conservative management including: Frequent elevation of right lower extremity above the level of the heart, ice packs, pain medication. 2. Diabetes mellitus type 2, non-insulin using, chronic, present on admission. Stable. -Patient has been inconsistent with diabetic management and counseled patient extensively on diabetes mellitus type 2 and complications associated. -Hemoglobin A1c 11.0% indicative of poor glycemic control. -Initial glucose level 412. Received regular insulin 10 units IV x1 with repeat blood glucose 373. Ordered another dose of regular insulin 10 units IV x1. Patients BG are improving. -Continue ACHS blood glucose checks and medium dose correctional scale insulin. -Started Lantus increased from 30 units to 35 units daily at bedtime. -Continue glyburide 5 mg twice daily. Patient has not tolerated metformin in the past due to GI upset. Discussed taking metformin with food and efficacy for which the patient would like to try this again. Started metformin XR 500 mg daily at 1700 for which the patient tolerated well and plan to increase to 1000 mg daily at 1700. If tolerates well would increase to maximum dose of 2000 mg daily at 1700. -Continue carbohydrate consistent diet/heart healthy diet. -Patient has complication of neuropathy with a burning sensation in bilateral feet. Recommended patient have feet checked twice a year and eyes checked at least annually. 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 3. Hypertension, chronic, present on admission. Stable. -Initial BP 162/81 which may have some aspect of pain component but appears to be persistently elevated above 140 mmHg. -Continue losartan increased from 25 mg now to 100 mg daily for better blood pressure control as patient is SBP consistently in the 140s to 150s. 4. Hyperlipidemia, chronic, present on admission. Stable. -Fasting lipid panel demonstrated poor lipid control with: Total cholesterol 189, triglycerides 143, LDL 124 (goal < 100), HDL 36. -Discussed statin therapy in detail including benefits and risks. Started rosuvastatin 10 mg daily at bedtime. Recommend outpatient LFTs in 4-6 weeks per PCP. -Counseled patient extensively on lifestyle modification including diet and exercise as below. 5. Obstructive sleep apnea on CPAP, chronic, present on admission. Stable. -Continue GOMEZ protocol per RT. Encouraged patient to have her partner bring in her CPAP. 6. Right temporal meningioma with chronic right-sided tinnitus, chronic, present on admission. Stable. -Currently under surveillance by neurology at [facility], Dr. Gilmer Nunez. 7. Depression with anxiety, chronic, present on admission. Stable. -Continue fluoxetine 60 mg daily at bedtime. 8. Attention deficit disorder, chronic, present on admission. Stable. -Continue methylphenidate 10 mg 3 times daily. 9. Insomnia, chronic, present on admission. Stable. -Continue zolpidem 20 mg daily at bedtime as needed for insomnia. 10. Morbid obesity, chronic, present on admission. Stable. -BMI 49.4. -Counseled patient extensively on diet and exercise. -Consulted dietitian for diabetic education and weight loss. Code status: Full code VTE prophylaxis: SQ Heparin Disposition: Patient likely will discharge home in 1-2 days once cellulitis has improved and resolving.
[2019-07-16] MEDS: glyBURIDE 5 MG TABLET PO ×2 (08:55→21:18)
[2019-07-16] MEDS: SODIUM CHLORIDE 0.9% FLUSH 10 ML IV ×4 (08:55→21:18)
[2019-07-16] MEDS: GABAPENTIN 300 MG CAPSULE PO ×3 (08:58→21:14)
[2019-07-16] MEDS: ACETAMINOPHEN 325 MG TABLET 650 MG PO (08:58)
[2019-07-16] MEDS: HEPARIN 5,000 UNIT/ML VIAL 5000 UNIT SUBCUT ×2 (08:58→22:09)
[2019-07-16] MEDS: METHYLPHENIDATE 5 MG TABLET 10 MG PO ×3 (08:58→21:15)
[2019-07-16] MEDS: KETOROLAC 30 MG/ML VIAL IV ×2 (08:59→16:01)
[2019-07-16] MEDS: LOSARTAN 50 MG TABLET PO ×2 (08:59→16:02)
[2019-07-16] MEDS: INSULIN ASPART 100 UNIT/ML INSULN PEN SUBCUT ×4 (09:00→21:16)
[2019-07-16] MEDS: CEFTRIAXONE 2 GM/50 ML FROZ.PIGGY IV (09:49)
[2019-07-16 11:54] LABS: Vancomycin Trough 5.8 ug/mL (10-20)
--- NOTE | 2019-07-16 15:32 | CM.DANOTE ---
DCP/Brief Assessment: Reviewed chart. Patient is a 43yr old female admitted to [facility] for RLE cellulitis. PCP listed is [facility]. Primary payor is 1)[employer] and [employer]. Discussed case with provider in AM rounds. Patient currently MRSA positive and on IV abx. Per provider patient will most likely remain hospitalized for the next 24-48hrs. Patient resides with significant other in [place]. Patient has h/o depression, anxiety, attention deficit disorder, morbid obesity, htn, and diabetes type 2. Provider obtaining dietary consult today to discuss diabetes compliance management. 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 However, Dr. Corrigan reports that she does not believe patient will have any d/c planning needs. P: Attempt to check in with patient prior to discharge to see if she has any community resource needs. EDILBERTO De Leon Discharge Planning/Care Management CM Discharge Assessment Start: 07/16/19 15:28 Freq: Status: Active Protocol: Document 07/16/19 15:28 KJS (Rec: 07/16/19 15:32 [id number]) Discharge Planning Assessment Assigned [employer] Worker EDILBERTO De Leon Contact Information Reyestoya Ofelia # (partner) Advance Directives? No History Provided By Medical Record Prior Living Arrangements House Household Members significant other Independent with ADL's Yes: Per provider, patient with no d/c needs Is patient alert and oriented? Yes Caregiver for Another No Barriers to Discharge No Discharge Plan Home Transportation Arrangement Family/significant other Additional Comment Patient would benefit from visit prior to d/c to see if she needs any community resources. Patient currently with MRSA and precautions. Whiteboard Updated in Patient Room with No name and ext. # of [employer]ressed [employer] Worker Review Status In Process Next Review Type Continued Stay Review
[2019-07-16] MEDS: FLUoxetine 20 MG CAPSULE 60 MG PO (17:08)
[2019-07-16] MEDS: METFORMIN XR 500 MG TABLET 1000 MG PO (17:08)
[2019-07-16] MEDS: VANCOMYCIN 1,250 MG in SODIUM CHLORIDE 0.9% 250 ML IV ×2 (18:05→22:09)
[2019-07-16] MEDS: MAG HYDROX/ALUM/SIMETH 30 ML UDC PO (18:07)
[2019-07-16] MEDS: ROSUVASTATIN 10 MG TABLET PO (21:14)
[2019-07-16] MEDS: CALCIUM CARBONATE 500 MG TAB 1000 MG PO (21:15)
[2019-07-16] MEDS: INSULIN GLARGINE 100 UNIT/ML 3ML PEN 35 UNIT SUBCUT (21:17)
[2019-07-16] MEDS: ZOLPIDEM 5 MG TABLET 20 MG PO (23:46)
[2019-07-17] VITALS (10 sets, daily range): BP systolic 128–147; BP diastolic 74–87; PULSE 82–98; RESP 16–18; TEMP 36.1–36.8; O2SAT 96–99
[2019-07-17] MEDS: HEPARIN 5,000 UNIT/ML VIAL 5000 UNIT SUBCUT ×3 (05:17→21:40)
[2019-07-17] MEDS: VANCOMYCIN 1,250 MG in SODIUM CHLORIDE 0.9% 250 ML IV (05:17)
--- NOTE | 2019-07-17 06:17 | PC.NURSE ---
Pt doing well. Denies any pain; just states the warmthness of her Right leg. Right legs redness is mostly towards the top of her limon; a pinpoint size intact blister formed as well. Fingerstick 275 overnight.
[2019-07-17] MEDS: ACETAMINOPHEN 325 MG TABLET 650 MG PO (07:44)
[2019-07-17] MEDS: METHYLPHENIDATE 5 MG TABLET 10 MG PO ×3 (08:18→21:44)
[2019-07-17] MEDS: LOSARTAN 50 MG TABLET 100 MG PO (08:18)
[2019-07-17] MEDS: glyBURIDE 5 MG TABLET PO ×2 (08:19→21:35)
[2019-07-17] MEDS: INSULIN ASPART 100 UNIT/ML INSULN PEN SUBCUT ×3 (08:24→17:18)
[2019-07-17] MEDS: VANCOMYCIN TROUGH 1 REQUEST MISC (10:30)
[2019-07-17] MEDS: CEFTRIAXONE 2 GM/50 ML FROZ.PIGGY IV (10:30)
[2019-07-17 11:05] LABS: Vancomycin Trough 9.1 ug/mL (10-20)
[2019-07-17] MEDS: VANCOMYCIN 1,500 MG/300 ML FROZ.PIGGY 200 MG IV ×3 (12:11→23:50)
--- NOTE | 2019-07-17 12:12 | PM.PN.1 ---
Subjective Subjective Date Patient Seen: 07/17/19 Time Patient Seen: 09:20 Interval history: Mary Anne Maria is a 43-year-old female with a past medical history significant for hypertension, diabetes mellitus type 2, non-insulin using, with complication of neuropathy, obstructive sleep apnea on CPAP, right temporal meningioma with chronic right-sided tinnitus, depression with anxiety, and attention deficit disorder who presented to the ED due to worsening cellulitis. She reports today that her redness, pain, and warmth are improving. Her cellulitis has regressed slightly from previously outlined margins. Her metformin was increased to 1000 mg, and she has had 3 episodes of diarrhea today. She has no other complaints and denies headache, shortness of breath, chest pain, abdominal pain, nausea, vomiting, fever, chills, dysuria. She is voiding without difficulty. Exam Vital Signs (past 8 hours): - 07/17/19 04:51 07/17/19 07:50 07/17/19 08:00 Temperature 97.6 F 97.0 F L Pulse Rate 83 87 Respiratory Rate 18 18 Blood Pressure 128/76 136/82 Pulse Oximetry 96 97 98 07/17/19 08:18 Temperature Pulse Rate 82 Respiratory Rate Blood Pressure 136/82 Pulse Oximetry Oxygen Delivery Method Room Air Oxygen Flow Rate 0 Narrative Exam Narrative: General: Middle-aged morbidly obese female lying in bed and in no acute distress, well-developed, well-nourished, appropriately interactive. HEENT: Normocephalic, atraumatic. External ears without defect. Pupils equal, round, and reactive to light. Anicteric sclerae, moist conjunctivae, and no lid lag. Oropharynx free of erythema and cobble stoning with moist mucosa. Neck: Supple with full range of motion. No lymphadenopathy or thyromegaly. Cardiovascular: Regular rate and rhythm without murmurs, rubs, or gallops appreciated. Pulmonary: Clear to auscultation bilaterally without crackles, wheezes, or rhonchi. Normal respiratory effort with no use of accessory muscles. Abdomen: Soft, obese, bowel sounds present, nontender, nondistended. No hepatosplenomegaly or masses appreciated. Extremities: No clubbing, cyanosis, or edema. Right lower extremity with well demarcated rash that is regressing from previously outlined margins. The rash is blotchy, erythematous, and warm which has improved and is located over medial aspect of right leg from ankle to knee. Skin: Normal temperature, turgor, and texture; no rash, ulcers, or subcutaneous nodules appreciated. Neurological: Cranial nerves grossly intact. Psychiatric: Normal mood and affect. Alert and oriented to person, place, and time. Objective Labs Result Diagrams: 07/16/19 05:49 07/16/19 05:49 Labs: Laboratory Results - last 24 hr 07/17/19 10:35 Vancomycin Trough 9.1 L Assessment & Plan Assessment & Plan narrative: Mary Anne Maria is a 43-year-old female with a past medical history significant for hypertension, diabetes mellitus type 2, non-insulin using, with complication of neuropathy, obstructive sleep apnea on CPAP, right temporal meningioma with chronic right-sided tinnitus, depression with anxiety, and attention deficit disorder who presented to the ED due to worsening cellulitis, she is now improving on IV antibiotics. 1. Acute non-purulent right lower extremity cellulitis, present on admission. Active. -Patient reports bug bite that led to development of a rash on right leg with associated high fevers for which she was seen for previously in ED 2 days ago and discharged on doxycycline for which the patient has now failed. Patient previously had purulent drainage from bug bite. -No systemic signs of infection with normal WBC 7.8 and procalcitonin 0.37, however, patient has been previously on doxycycline. Continue to monitor WBC and procalcitonin daily. -Bilateral lower extremity venous Doppler ultrasound did not demonstrate any DVTs. -Received 1 L of normal saline at 100 mL/hr then discontinued as she is adequately hydrated. -MRSA screen positive. Plan to eradicate the patient of MRSA as an outpatient per PCP once cellulitis has completely resolved. -Received vancomycin per pharmacist and ceftriaxone 2 g IV x1 in ED. Continue ceftriaxone 2 g IV daily and vancomycin with dosing per pharmacist. -Continue conservative management including: Frequent elevation of right lower extremity above the level of the heart, ice packs, pain medication. 2. Diabetes mellitus type 2, non-insulin using, chronic, present on admission. Stable. -Patient has been inconsistent with diabetic management and counseled patient extensively on diabetes mellitus type 2 and complications associated. -Hemoglobin A1c 11.0% indicative of poor glycemic control. -Initial glucose level 412. Received regular insulin 10 units IV x1 with repeat blood glucose 373. Ordered another dose of regular insulin 10 units IV x1. Patients BG are improving. -Continue ACHS blood glucose checks and medium dose correctional scale insulin. -Started Lantus increased from 30 units to 35 units daily at bedtime. -Continue glyburide 5 mg twice daily. Patient has not tolerated metformin in the past due to GI upset. Discussed taking metformin with food and efficacy for which the patient would like to try this again. Started metformin XR 500 mg daily at 1700 for which the patient tolerated well however then developed diarrhea after 1000 mg, reduced dosing to 500 mg again today and if diarrhea continues will discontinue. -Continue carbohydrate consistent diet/heart healthy diet. -Patient has complication of neuropathy with a burning sensation in bilateral feet. Recommended patient have feet checked twice a year and eyes checked at least annually. 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 3. Hypertension, chronic, present on admission. Stable. -Initial BP 162/81 which may have some aspect of pain component but appears to be persistently elevated above 140 mmHg. -losartan increased from 25 mg now to 100 mg daily for better blood pressure control. 4. Hyperlipidemia, chronic, present on admission. Stable. -Fasting lipid panel demonstrated poor lipid control with: Total cholesterol 189, triglycerides 143, LDL 124 (goal < 100), HDL 36. -Discussed statin therapy in detail including benefits and risks. Started rosuvastatin 10 mg daily at bedtime. Recommend outpatient LFTs in 4-6 weeks per PCP. -Counseled patient extensively on lifestyle modification including diet and exercise as below. 5. Obstructive sleep apnea on CPAP, chronic, present on admission. Stable. -Continue GOMEZ protocol per RT. Encouraged patient to have her partner bring in her CPAP. 6. Right temporal meningioma with chronic right-sided tinnitus, chronic, present on admission. Stable. -Currently under surveillance by neurology at [facility], Dr. Gilmer Nunez. 7. Depression with anxiety, chronic, present on admission. Stable. -Continue fluoxetine 60 mg daily at bedtime. 8. Attention deficit disorder, chronic, present on admission. Stable. -Continue methylphenidate 10 mg 3 times daily. 9. Insomnia, chronic, present on admission. Stable. -Continue zolpidem 20 mg daily at bedtime as needed for insomnia. 10. Morbid obesity, chronic, present on admission. Stable. -BMI 49.4. -Counseled patient extensively on diet and exercise. -Consulted dietitian for diabetic education and weight loss. Code status: Full code VTE prophylaxis: SQ Heparin Disposition: Patient likely will discharge home in 1-2 days once cellulitis has improved and resolving.
[2019-07-17] MEDS: KETOROLAC 30 MG/ML VIAL IV (12:26)
[2019-07-17] MEDS: SODIUM CHLORIDE 0.9% FLUSH 10 ML IV ×2 (12:28→21:44)
[2019-07-17] MEDS: FLUoxetine 20 MG CAPSULE 60 MG PO (17:17)
[2019-07-17] MEDS: METFORMIN XR 500 MG TABLET PO (17:17)
[2019-07-17] MEDS: INSULIN GLARGINE 100 UNIT/ML 3ML PEN 35 UNIT SUBCUT (21:35)
[2019-07-17] MEDS: ROSUVASTATIN 10 MG TABLET PO (21:40)
[2019-07-17] MEDS: GABAPENTIN 300 MG CAPSULE PO (21:40)
[2019-07-17] MEDS: ZOLPIDEM 5 MG TABLET 20 MG PO (21:51)
[2019-07-18 05:02] VITALS: BP 141/78; PULSE 89; RESP 16; TEMP 37.1; O2SAT 97
[2019-07-18] MEDS: VANCOMYCIN 1,500 MG/300 ML FROZ.PIGGY 200 MG IV (05:13)
[2019-07-18] MEDS: HEPARIN 5,000 UNIT/ML VIAL 5000 UNIT SUBCUT (05:16)
[2019-07-18 07:00] VITALS: O2SAT 99
[2019-07-18 07:40] VITALS: BP 137/75; PULSE 88; RESP 18; TEMP 36.7; O2SAT 98
--- NOTE | 2019-07-18 09:20 | P.DS_ITS ---
History of Present Illness History of Present Illness Date Patient Seen: 07/18/19 Time Patient Seen: 09:20 Chief complaint: skin infection right leg Narrative: As per Dr. Corrigan, Mary Anne Maria is a 43-year-old female with a past medical history significant for hypertension, diabetes mellitus type 2, non-insulin using, with complication of neuropathy, obstructive sleep apnea on CPAP, right temporal meningioma with chronic right-sided tinnitus, depression with anxiety, and attention deficit disorder who presented to the ED due to worsening cellulitis. The patient reports that she was previously seen in the ED 2 days ago for right lower extremity rash and discharged on doxycycline. She has had approximately 5 doses of doxycycline. Her rash has worsened prompting her to be re-evaluated. She reports that the rash is hot, has a burning quality at rest and causes excruciating pain with standing. She believes the rash developed after an insect bite on her Achilles. She reports associated high fevers up to 102.7? F and 1 episode of nausea with vomiting. She endorses chronic lightheadedness due to meningioma and polydipsia and polyuria due to uncontrolled diabetes. She otherwise has no other symptoms and denies headache, vision changes, chest pain, shortness of breath, nausea, vomiting, chills, dysuria, diarrhea or c onstipation. Discharge Providers Provider Date of admission: 07/15/19 12:04 Discharge Date: 07/18/19 Primary care physician: Trino Bales MD Consults: 07/15/19 13:53 Consult to Discharge Planning Routine Comment: 07/16/19 15:05 Consult to Dietitian, Adult Routine Comment: Reason For Exam: Uncontrolled diabetes, Morbid obesity Discharge provider: Warren Tian DO Summary Hospital Course Discharge Diagnosis: 1. Acute non-purulent right lower extremity cellulitis, present on admission. Active. 2. Diabetes mellitus type 2, non-insulin using, chronic, present on admission. Stable. 3. Hypertension, chronic, present on admission. Stable. 4. Hyperlipidemia, chronic, present on admission. Stable. 5. Obstructive sleep apnea on CPAP, chronic, present on admission. Stable. 6. Right temporal meningioma with chronic right-sided tinnitus, chronic, present on admission. Stable. 7. Depression with anxiety, chronic, present on admission. Stable. 8. Attention deficit disorder, chronic, present on admission. Stable. 9. Insomnia, chronic, present on admission. Stable. 10. Morbid obesity, chronic, present on admission. Stable. Hospital Course: Mary Anne Maria is a 43-year-old female with a past medical history significant for hypertension, diabetes mellitus type 2, non-insulin using, with complication of neuropathy, obstructive sleep apnea on CPAP, right temporal meningioma with chronic right-sided tinnitus, depression with anxiety, and attention deficit disorder who presented to the ED due to worsening cellulitis, her cellulitis is markedly improved and she is being discharged on oral antibiotics. 1. Acute non-purulent right lower extremity cellulitis, present on admission. Active. -Patient reported bug bite at work that led to development of a rash on right leg with associated high fevers for which she was seen for previously in ED 2 days ago and discharged on doxycycline for which the patient has now failed. Patient previously had purulent drainage from bug bite. -No systemic signs of infection with normal WBC 7.8 and procalcitonin 0.37, however, patient has been previously on doxycycline. -Bilateral lower extremity venous Doppler ultrasound did not demonstrate any DVTs. -Received 1 L of normal saline at 100 mL/hr then discontinued as she is adequately hydrated. -MRSA screen positive. Plan to eradicate the patient of MRSA as an outpatient per PCP once cellulitis has completely resolved. -Received vancomycin per pharmacist and ceftriaxone 2 g IV x1 in ED. Continued ceftriaxone 2 g IV daily and vancomycin with dosing per pharmacist. Her cellulitis improved and discharge regimen will be bactrim and cefdinir given failed doxycycline as outpatient, + MRSA screen and improvement here on vanc and ceftriaxone. -PMD follow up in 1-2 weeks. If worsening as an outpatient advised to return to the ED as she may require IV therapy until resolved. 2. Diabetes mellitus type 2, non-insulin using, chronic, present on admission. Stable. -Patient has been inconsistent with diabetic management and counseled patient extensively on diabetes mellitus type 2 and complications associated. -Hemoglobin A1c 11.0% indicative of poor glycemic control. -Initial glucose level 412. Received regular insulin 10 units IV x1 with repeat blood glucose 373. Ordered another dose of regular insulin 10 units IV x1. Patients BG are improving. -Started Lantus increased from 30 units to 35 units daily at bedtime. She will discharge on 35 U of lantus at bedtime. -Continue glyburide 5 mg twice daily. Patient has not tolerated metformin in the past due to GI upset. Discussed taking metformin with food and efficacy for which the patient would like to try this again. Started metformin XR 500 mg daily at 1700 for which the patient tolerated well however then developed diarrhea after 1000 mg, reduced dosing to 500 mg again with improvement in diarrhea. She was discharged on 500 mg daily. -Continue carbohydrate consistent diet/heart healthy diet. -Patient has complication of neuropathy with a burning sensation in bilateral feet. Recommended patient have feet checked twice a year and eyes checked at least annually. 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 -PMD follow up in 1-2 weeks for further management. 3. Hypertension, chronic, present on admission. Stable. -Initial BP 162/81 which may have some aspect of pain component but appears to be persistently elevated above 140 mmHg. -losartan increased from 25 mg now to 100 mg daily for better blood pressure control. -follow up with primary care 4. Hyperlipidemia, chronic, present on admission. Stable. -Fasting lipid panel demonstrated poor lipid control with: Total cholesterol 189, triglycerides 143, LDL 124 (goal < 100), HDL 36. -Discussed statin therapy in detail including benefits and risks. Started rosuv astatin 10 mg daily at bedtime. Recommend outpatient LFTs in 4-6 weeks per PCP. -Counseled patient extensively on lifestyle modification including diet and exercise as below. 5. Obstructive sleep apnea on CPAP, chronic, present on admission. Stable. -Continue GOMEZ protocol per RT. Encouraged patient to have her partner bring in her CPAP. 6. Right temporal meningioma with chronic right-sided tinnitus, chronic, present on admission. Stable. -Currently under surveillance by neurology at [facility], Dr. Gilmer Nunez. 7. Depression with anxiety, chronic, present on admission. Stable. -Continue fluoxetine 60 mg daily at bedtime. 8. Attention deficit disorder, chronic, present on admission. Stable. -Continue methylphenidate 10 mg 3 times daily. 9. Insomnia, chronic, present on admission. Stable. -Continue zolpidem 20 mg daily at bedtime as needed for insomnia. 10. Morbid obesity, chronic, present on admission. Stable. -BMI 49.4. -Counseled patient extensively on diet and exercise. -Consulted dietitian for diabetic education and weight loss. Status at Discharge Cognitive/behavioral status at discharge: oriented Functional status at discharge: independent ambulation Overall status at discharge: patient is progressing back to baseline (still with mild erythema and redness, but markedly improved.) Time Spent with Patient Time spent: Greater than 30 minutes Exam Vital Signs (past 8 hours): - 07/18/19 05:02 07/18/19 07:40 Temperature 98.7 F 98.0 F Pulse Rate 89 88 Respiratory Rate 16 18 Blood Pressure 141/78 H 137/75 Pulse Oximetry 97 98 Oxygen Delivery Method Room Air,CPAP Oxygen Flow Rate 0 Narrative Exam Narrative: General: Middle-aged morbidly obese female lying in bed and in no acute distress, well-developed, well-nourished, appropriately interactive. HEENT: Normocephalic, atraumatic. External ears without defect. Pupils equal, round, and reactive to light. Anicteric sclerae, moist conjunctivae, and no lid lag. Oropharynx free of erythema and cobble stoning with moist mucosa. Neck: Supple with full range of motion. No lymphadenopathy or thyromegaly. Cardiovascular: Regular rate and rhythm without murmurs, rubs, or gallops appreciated. Pulmonary: Clear to auscultation bilaterally without crackles, wheezes, or rhonchi. Normal respiratory effort with no use of accessory muscles. Abdomen: Soft, obese, bowel sounds present, nontender, nondistended. No hepatosplenomegaly or masses appreciated. Extremities: No clubbing, cyanosis, or edema. Right lower extremity with well demarcated rash that is regressing from previously outlined margins. The rash is blotchy, erythematous, and warm which has improved and is located over medial aspect of right leg from knee to approximately 1/3 of upper calf now. Skin: Normal temperature, turgor, and texture; no ulcers, or subcutaneous nodules appreciated. Neurological: Cranial nerves grossly intact. Psychiatric: Normal mood and affect. Alert and oriented to person, place, and time. Objective Labs Result Diagrams: 07/16/19 05:49 07/16/19 05:49 Labs: Laboratory Results - last 24 hr 07/17/19 10:35 Vancomycin Trough 9.1 L Discharge Plan Discharge Plan Patient Disposition: Home Discharge comment: You were admitted to the hospital for cellulitis. You are being discharged home and should complete another week of antibiotics. You are being discharged on two antibiotics. If your redness or swelling worsens you can return to the emergency room as you may require prolonged antibiotic therapy. Your blood sugar was elevated while here and your diabetes is not controlled. You are being discharged on insulin. You should follow up with your primary care provider in the next 1-2 weeks for a recheck of your leg and to assess your diabetes control. Please check your blood sugar in the morning and 2 hours after meals to help your PCP better assess your diabetes. You cannot take more than 500 mg of metformin without side effects, but this dosing is doing well for you. Discharge orders & Medications Prescriptions: New losartan 50 mg Tablet 100 mg PO DAILY 30 Days Qty: 30 RF: 0 gabapentin [Neurontin] 300 mg Capsule 300 mg PO BEDTIME 30 Days Qty: 30 RF: 0 Lantus Solostar U-100 Insulin 100 unit/mL (3 mL) Insulin Pen 35 unit subcut BEDTIME 30 Days Qty: 12 RF: 0 metformin [Glucophage XR] 500 mg Tablet Extended Release 24 Hr 500 mg PO 1700 30 Days Qty: 30 RF: 0 rosuvastatin 10 mg Tablet 10 mg PO BEDTIME 30 Days Qty: 30 RF: 0 (DME) pen needle, diabetic 32 gauge x 5/16 needle See Rx Instructions .ROUTE .MEDSUPPLY Qty: 100 RF: 0 (DME) blood-glucose meter [Accu-Chek Yvonne Plus Meter] Misc See Rx Instructions .ROUTE .MEDSUPPLY Qty: 1 RF: 0 (DME) lancets [Accu-Chek Fastclix Lancet Drum] Misc See Rx Instructions .ROUTE .MEDSUPPLY Qty: 50 RF: 0 (DME) Accu-Chek Yvonne Plus test strp Strip See Rx Instructions .ROUTE .MEDSUPPLY Qty: 100 RF: 0 sulfamethoxazole-trimethoprim [Bactrim DS] 800-160 mg tablet 1 tab PO BID 7 Days Qty: 14 RF: 0 cefdinir 300 mg capsule 300 mg PO BID 7 Days Qty: 14 RF: 0 Continued zolpidem 10 mg tablet 20 mg PO BEDTIME PRN (Reason: insomnia) Qty: 60 RF: 2 glyburide 5 mg tablet 5 mg PO BID RF: 0 fluoxetine 20 mg capsule 60 mg PO QPM RF: 0 methylphenidate HCl 10 mg tablet 10 mg PO TID RF: 0 Discontinued losartan 25 mg tablet 25 mg PO DAILY RF: 0 doxycycline monohydrate 100 mg capsule 100 mg PO BID 10 Days Qty: 20 RF: 0 Follow up/Referrals: Trino aBles MD [Primary Care Provider] - Discharge Health Status Health Concerns: Cellulitis Diabetes Diet/Activity/Treatments Diet: Diet as Tolerated and Carb-consistent/Diabetic Activity: As tolerated Visit Report/Discharge Packet Instructions: How to Take Care of Your Feet If You Have Diabetes, Lifestyle Changes as Effective as Drugs in Preventing Progression to Diabet, Diabetes Medication May Increase the Risk of Heart Attack, Exercising Caution When You Have Diabetes, Diabetes and Cardiovascular Disease: What's the Link?, Complications of Type 2 Diabetes, Traveling With Diabetes, Reducing Your Risk of Heart Disease When You Have Diabetes, Type 2 Diabetes, Methicillin-Resistant Staph Infection, Diabetic Neuropathy, Sugar-Sweetened Fruit Drinks Linked to Increased Chance of Type 2 Diabetes , Insulin Aspart (rDNA Origin) Injection, Insulin Regular (By injection) Discharge Data Primary Care Provider: Trino Bales
--- NOTE | 2019-07-18 09:34 | CM.DPNOTE ---
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 Will remain available in case DC needs or concerns arise today. JW
[2019-07-18] MEDS: LOSARTAN 50 MG TABLET 100 MG PO (10:08)
[2019-07-18] MEDS: glyBURIDE 5 MG TABLET PO (10:08)
[2019-07-18] MEDS: METHYLPHENIDATE 5 MG TABLET 10 MG PO (10:08)
[2019-07-18] MEDS: INSULIN ASPART 100 UNIT/ML INSULN PEN SUBCUT (10:12)
[2019-07-18 11:22] VITALS: BP 151/90; PULSE 87; RESP 18; TEMP 36.4; O2SAT 97
--- NOTE | 2019-07-18 11:41 | DIET.PN ---
Dietary Progress Note Fine Arts Model/Dietitian Faina Kapoor will contact pt to initiate outpatient diabetes education.
--- NOTE | 2019-07-18 12:36 | PC.NURSE ---
AM shift Pt ready to d/c, extensive patient teaching provided for new diabetic and insulin treatment. Sig other at bedside for teaching. [facility] Work note provided. D/c to private vehicle.
== END 2019-07-18 12:32 | disposition home or self-care (01) | DRG 383 ==
LOC: ED 12:02 → AC 12:06
PROVIDERS: Admitting Provider Internal Medicine; Emergency Provider Emergency Medicine; Family Provider Internal Medicine; PCP Internal Medicine; Visit Provider Internal Medicine
DX: L03.115 Cellulitis of right lower limb (principal); E66.01 Morbid (severe) obesity due to excess calories; Z68.42 Body mass index [BMI] 45.0-49.9, adult; E11.40 Type 2 diabetes mellitus with diabetic neuropathy, unspecified; E11.65 Type 2 diabetes mellitus with hyperglycemia; S90.561A Insect bite (nonvenomous), right ankle, initial encounter; G47.33 Obstructive sleep apnea (adult) (pediatric); I10 Essential (primary) hypertension; D32.0 Benign neoplasm of cerebral meninges; H93.11 Tinnitus, right ear; F41.8 Other specified anxiety disorders; G47.00 Insomnia, unspecified; F98.8 Other specified behavioral and emotional disorders with onset usually occurring in childhood and adolescence; B95.62 Methicillin resistant Staphylococcus aureus infection as the cause of diseases classified elsewhere; W57.XXXS Bitten or stung by nonvenomous insect and other nonvenomous arthropods, sequela; Y99.0 Civilian activity done for income or pay
CPT/HCPCS: 36415; 80048; 80053; 80061; 80202; 82962; 83036; 83605; 84145; 84443; 85025; 85379; 87040; 87797; 93971; 94660; 96365; 96366; 96367; 96368; 99284; J0696; J1644; J1885

== ENCOUNTER 2019-11-26 11:36 | Inpatient (IN) | payer OTHER, SELFPAY ==
[2019-07-15 13:22] VITALS: BMI 49.4
[2019-11-26] VITALS (11 sets, daily range): BP systolic 162–217; BP diastolic 72–105; PULSE 88–110; RESP 14–20; TEMP 36.1–36.8; O2SAT 97–99; BMI 50.8
--- NOTE | 2019-11-26 14:20 | ED_ITS ---
HPI - Skin/Abscess/Foreign Bdy <Vaishali Landaverde, [employer] - Last Filed: 11/26/19 20:16> General Chief complaint: Skin/Abscess/Foreign Body Stated complaint: sore on lt side of face sent per phys Time Seen by Provider: 11/26/19 13:57 Source: patient and family Mode of arrival: Ambulatory Limitations: no limitations History of Present Illness HPI narrative: The patient is a 43-year-old female with history of type 2 diabetes who presents with a chief complaint of a wound and infection on the le ft side of her face. She has history of MRSA cellulitis with admission to the hospital. She states that this started a few days ago, she thought that it was ?a pimple. She presents to the emergency department today with a wound on the left side of her jaw, redness and swelling through her earlobe to her ear and down her jaw. She complains of general malaise, denies any fevers or vomiting but does complain of nausea. She has taken 4 doxycycline p.o. over the past 2 days. She called her primary care provider who encouraged her to come to the emergency department. She states that she also has history of a benign brain tumor as well as sleep apnea. Related Data Home Medications Medication Instructions Recorded Confirmed fluoxetine 20 mg PO QPM 11/26/19 11/26/19 gabapentin 600 mg PO BEDTIME 11/26/19 11/26/19 glyburide 10 mg PO QPM 11/26/19 11/26/19 insulin glargine [Lantus Solostar 35 unit SUBCUT BEDTIME 11/26/19 11/26/19 U-100 Insulin] losartan 50 mg PO BEDTIME 11/26/19 11/26/19 metformin 500 mg PO QAM 11/26/19 11/26/19 methylphenidate HCl See Rx Instructions .ROUTE .COMPLEX 11/26/19 11/26/19 zolpidem 10 mg PO BEDTIME PRN 11/26/19 11/26/19 Previous Rx's Medication Instructions Recorded blood sugar diagnostic [Accu-Chek #100 each 07/18/19 Yvonne Plus test strp] blood-glucose meter [Accu-Chek #1 each 07/18/19 Yvonne Plus Meter] lancets [Accu-Chek Fastclix Lancet #50 each 07/18/19 Drum] pen needle, diabetic #100 each 07/18/19 Allergies Allergy/AdvReac Type Severity Reaction Status Date / Time No Known Drug Allergies Allergy Verified 07/16/19 04:31 Review of Systems <DANA Montaño - Last Filed: 11/26/19 20:16> Review of Systems Narrative: GENERAL: See HPI HEENT: See HPI RESPIRATORY: Denies dyspnea, cough, wheezing, hemoptysis, sputum. CARDIOVASCULAR: Denies chest pain, palpitations, orthopnea, edema, GASTROINTESTINAL: Denies nausea, vomiting, abdominal pain, diarrhea, constipation, melena. : Denies dysuria, frequency, incontinence, hematuria, urinary retention. MUSCULOSKELETAL: denies weakness, joint pain, or bony pain SKIN: See HPI NEUROLOGIC: Denies weakness, headache, numbness, change in speech, confusion, seizures, incoordination. PSYCHIATRIC: No concerning psychosocial issues. 12 point review of systems is negative except for those stated above Patient History <DANA Montaño - Last Filed: 11/26/19 20:16> Medical History Attention deficit disorder (Acute) Depression with anxiety (Acute) HTN (hypertension) (Chronic) Meningioma (Acute) Morbid obesity with BMI of 45.0-49.9, adult (Acute) Obstructive sleep apnea of adult (Chronic) Primary insomnia (Chronic) Snoring (Chronic ~1987) Tinnitus of right ear (Acute) Type 2 diabetes mellitus (Chronic) Surgical History History of cholecystectomy (Acute) Family History Father No problems noted. Mother Diabetes mellitus Social History household members: significant other Smoking Status: Former smoker Smoking Status: Former smoker alcohol intake frequency: holidays/special occasions only Substance Use Type: marijuana Exam <DANA Montaño - Last Filed: 11/26/19 20:16> Narrative Exam Narrative: GENERAL: Morbidly obese female, appears uncomfortable HEAD: Atraumatic. Normocephalic. No temporal or scalp tenderness. EYES: Pupils equal round and reactive. Extraocular motions intact. No scleral icterus. No injection or drainage. ENT: Nose without bleeding, purulent drainage or septal hematoma. Throat without erythema, tonsillar hypertrophy or exudate. Uvula midline. Airway patent. Swollen and erythematous right ear and pinna. No pain to palpation of mastoid right. See skin exam. NECK: Trachea midline. No JVD or lymphadenopathy. Supple, nontender, no meningeal signs. CARDIOVASCULAR: Regular rate and rhythm RESPIRATORY: Clear to auscultation. Breath sounds equal bilaterally. No wheezes, rales, or rhonchi. No cough. No increased respiratory effort. No accessory muscle use. GASTROINTESTINAL: Abdomen soft, non-tender, nondistended. No hepato- splenomegaly, or palpable masses. No guarding. EXTREMITIES: No clubbing, cyanosis, or edema. No joint tenderness, effusion, or edema noted. BACK: Nontender without deformity or crepitance. No flank tenderness. NEURO: AOx3. SKIN: Erythema 8 x 8 cm surrounding 2 x 1 cm wound with purulence drainage. Wound culture taken. No palpable fluctuance, tender to palpation. Initial Vital Signs Initial Vital Signs: Vital Signs Temperature 97 F L 11/26/19 12:56 Pulse Rate 110 H 11/26/19 12:56 Respiratory Rate 14 11/26/19 12:56 Blood Pressure 178/100 H 11/26/19 12:56 Pulse Oximetry 97 11/26/19 12:56 <Goldy Kenyon DO - Last Filed: 11/26/19 20:18> Initial Vital Signs Initial Vital Signs: Vital Signs Temperature 97 F L 11/26/19 12:56 Pulse Rate 110 H 11/26/19 12:56 Respiratory Rate 14 11/26/19 12:56 Blood Pressure 178/100 H 11/26/19 12:56 Pulse Oximetry 97 11/26/19 12:56 Scores <DANA Montaño - Last Filed: 11/26/19 20:16> GCS Elizabeth coma scale eye opening: Spontaneous Elizabeth coma scale verbal response: Orientated Admire coma scale motor response: Obey commands Admire coma scale total score: 15 Course <DANA Montaño - Last Filed: 11/26/19 20:16> Orders Ordered: ED Orders 11/26/19 14:15 Complete Blood Count AUTO DIFF Stat Comprehensive Metabolic Panel Stat Lactate (Lactic Acid) Stat Test Serum,Qual Stat Procalcitonin Stat 11/26/19 14:28 Blood Culture Stat 11/26/19 14:39 CT soft tissue neck w con Stat 11/26/19 17:35 Wound Culture and Gram Stain Stat 11/26/19 18:09 EKG-12 Lead Stat 11/26/19 19:00 Urinalysis and Microscopic Stat Sodium Chloride (Normal Saline 0.9%) 1,000 mls @ 125 mls/hr IV BOLUS ONE Stop: 11/27/19 01:26 Last Infusion: 11/26/19 19:31 Dose: 0 mls/hr Documented by: Admin: 11/26/19 17:32 Dose: 125 mls/hr Documented by: DELIA Discontinued Medications Hydralazine HCl (Apresoline) 10 mg IV NOW ONE Stop: 11/26/19 17:43 Last Admin: 11/26/19 18:04 Dose: 10 mg Documented by: DELIA Hydromorphone HCl (Dilaudid) 1 mg IV NOW ONE Stop: 11/26/19 16:59 Last Admin: 11/26/19 17:03 Dose: 1 mg Documented by: DELIA Sodium Chloride (Normal Saline 0.9%) 1,000 mls @ 1,000 mls/hr IV BOLUS ONE Stop: 11/26/19 15:08 Last Infusion: 11/26/19 15:39 Dose: 0 mls/hr Documented by: Admin: 11/26/19 14:34 Dose: 1,000 mls/hr Documented by: DELIA Ceftriaxone Sodium/Dextrose (Rocephin) 2 gm in 50 mls @ 100 mls/hr IV NOW ONE Stop: 11/26/19 17:49 Last Infusion: 11/26/19 18:30 Dose: 0 mls/hr Documented by: Admin: 11/26/19 17:32 Dose: 100 mls/hr Documented by: DELIA Vancomycin HCl/Dextrose (Vancomycin) 2,000 mg in 400 mls @ 200 mls/hr IV NOW ONE Stop: 11/26/19 19:20 Last Infusion: 11/26/19 19:32 Dose: 0 mls/hr Documented by: Admin: 11/26/19 19:07 Dose: 200 mls/hr Documented by: DELIA Ketorolac Tromethamine (Toradol) 30 mg IV NOW ONE Stop: 11/26/19 18:00 Last Admin: 11/26/19 18:07 Dose: 30 mg Documented by: DELIA Labetalol HCl (Trandate) 20 mg IV NOW ONE Stop: 11/26/19 18:11 Last Admin: 11/26/19 19:29 Dose: Not Given Documented by: DELIA Morphine Sulfate (Morphine) 4 mg IV NOW ONE Stop: 11/26/19 14:10 Last Admin: 11/26/19 14:33 Dose: 4 mg Documented by: DELIA Morphine Sulfate (Morphine) 4 mg IV NOW ONE Stop: 11/26/19 16:08 Last Admin: 11/26/19 16:16 Dose: 4 mg Documented by: SEUN Ondansetron HCl (Zofran) 4 mg IV NOW ONE Stop: 11/26/19 14:10 Last Admin: 11/26/19 14:33 Dose: 4 mg Documented by: DELIA Vital Signs Vital signs: Vital Signs - 8 hr 11/26/19 12:56 11/26/19 14:17 11/26/19 14:38 Temperature 97 F L Pulse Rate 110 H 108 H 99 H Respiratory Rate 14 18 20 Blood Pressure 178/100 H Blood Pressure [Right Wrist] 192/98 H 170/93 H Pulse Oximetry 97 99 98 11/26/19 16:05 11/26/19 16:47 11/26/19 18:04 Temperature Pulse Rate 99 H 96 H 99 H Respiratory Rate 14 15 Blood Pressure 195/94 H Blood Pressure [Right Wrist] 210/103 H 217/105 H Pulse Oximetry 98 98 11/26/19 18:10 Temperature Pulse Rate 90 Respiratory Rate 18 Blood Pressure Blood Pressure [Right Wrist] 195/99 H Pulse Oximetry 99 <Goldy Kenyon DO - Last Filed: 11/26/19 20:18> Orders Ordered: ED Orders 11/26/19 14:15 Complete Blood Count AUTO DIFF Stat Comprehensive Metabolic Panel Stat Lactate (Lactic Acid) Stat Test Serum,Qual Stat Procalcitonin Stat 11/26/19 14:28 Blood Culture Stat 11/26/19 14:39 CT soft tissue neck w con Stat 11/26/19 17:35 Wound Culture and Gram Stain Stat 11/26/19 18:09 EKG-12 Lead Stat 11/26/19 19:00 Urinalysis and Microscopic Stat Sodium Chloride (Normal Saline 0.9%) 1,000 mls @ 125 mls/hr IV BOLUS ONE Stop: 11/27/19 01:26 Last Infusion: 11/26/19 19:31 Dose: 0 mls/hr Documented by: Admin: 11/26/19 17:32 Dose: 125 mls/hr Documented by: DELIA Discontinued Medications Hydralazine HCl (Apresoline) 10 mg IV NOW ONE Stop: 11/26/19 17:43 Last Admin: 11/26/19 18:04 Dose: 10 mg Documented by: DELIA Hydromorphone HCl (Dilaudid) 1 mg IV NOW ONE Stop: 11/26/19 16:59 Last Admin: 11/26/19 17:03 Dose: 1 mg Documented by: DELIA Sodium Chloride (Normal Saline 0.9%) 1,000 mls @ 1,000 mls/hr IV BOLUS ONE Stop: 11/26/19 15:08 Last Infusion: 11/26/19 15:39 Dose: 0 mls/hr Documented by: Admin: 11/26/19 14:34 Dose: 1,000 mls/hr Documented by: DELIA Ceftriaxone Sodium/Dextrose (Rocephin) 2 gm in 50 mls @ 100 mls/hr IV NOW ONE Stop: 11/26/19 17:49 Last Infusion: 11/26/19 18:30 Dose: 0 mls/hr Documented by: Admin: 11/26/19 17:32 Dose: 100 mls/hr Documented by: DELIA Vancomycin HCl/Dextrose (Vancomycin) 2,000 mg in 400 mls @ 200 mls/hr IV NOW ONE Stop: 11/26/19 19:20 Last Infusion: 11/26/19 19:32 Dose: 0 mls/hr Documented by: Admin: 11/26/19 19:07 Dose: 200 mls/hr Documented by: DELIA Ketorolac Tromethamine (Toradol) 30 mg IV NOW ONE Stop: 11/26/19 18:00 Last Admin: 11/26/19 18:07 Dose: 30 mg Documented by: DELIA Labetalol HCl (Trandate) 20 mg IV NOW ONE Stop: 11/26/19 18:11 Last Admin: 11/26/19 19:29 Dose: Not Given Documented by: DELIA Morphine Sulfate (Morphine) 4 mg IV NOW ONE Stop: 11/26/19 14:10 Last Admin: 11/26/19 14:33 Dose: 4 mg Documented by: DELIA Morphine Sulfate (Morphine) 4 mg IV NOW ONE Stop: 11/26/19 16:08 Last Admin: 11/26/19 16:16 Dose: 4 mg Documented by: SEUN Ondansetron HCl (Zofran) 4 mg IV NOW ONE Stop: 11/26/19 14:10 Last Admin: 11/26/19 14:33 Dose: 4 mg Documented by: DELIA Vital Signs Vital signs: Vital Signs - 8 hr 11/26/19 12:56 11/26/19 14:17 11/26/19 14:38 Temperature 97 F L Pulse Rate 110 H 108 H 99 H Respiratory Rate 14 18 20 Blood Pressure 178/100 H Blood Pressure [Right Wrist] 192/98 H 170/93 H Pulse Oximetry 97 99 98 11/26/19 16:05 11/26/19 16:47 11/26/19 18:04 Temperature Pulse Rate 99 H 96 H 99 H Respiratory Rate 14 15 Blood Pressure 195/94 H Blood Pressure [Right Wrist] 210/103 H 217/105 H Pulse Oximetry 98 98 11/26/19 18:10 Temperature Pulse Rate 90 Respiratory Rate 18 Blood Pressure Blood Pressure [Right Wrist] 195/99 H Pulse Oximetry 99 MDM - Skin/Abscess/Foreign Bdy <TERRA Montaño- - Last Filed: 11/26/19 20:16> Lab Data Result diagrams: 11/26/19 14:15 11/26/19 14:15 Labs: Lab Results 11/26/19 11/26/19 11/26/19 Range/Units 14:15 14:15 14:15 WBC 10.8 (4.5-11.0) X10^3/uL RBC 4.66 (4.0-5.2) X10^6/uL Hgb 14.0 (12.0-16.0) g/dL Hct 39.8 (36-46) % MCV 85.3 (80-100) fL MCH 30.0 (26-34) PG MCHC 35.2 (30-36) % RDW 13.0 (11.6-14.8) % Plt Count 252 (150-400) X10^3/uL Neut % (Auto) 73.1 (50-75) % Lymph % (Auto) 16.3 L (25-40) % [place] % (Auto) 7.1 (3-14) % Eos % (Auto) 2.3 (2-4) % Baso % (Auto) 1.2 (0-2) % Neut # (Auto) 7900 H (9892-3012) /uL Lymph # (Auto) 1800 (2676-2014) /uL [place] # (Auto) 800 (0-900) /uL Eos # (Auto) 300 (0-450) /uL Baso # (Auto) 100 (0-100) /uL Sodium 134 L (137-145) mmol/L Potassium 4.4 (3.4-5.1) mmol/L Chloride 100 (98-107) mmol/L Carbon Dioxide 27 (22-32) mmol/L BUN 12 (7-17) mg/dL Creatinine 0.33 L (0.52-1.04) mg/dL Estimated GFR > 60.0 (>60) mL/min BUN/Creatinine Ratio 36.4 H (6-22) Glucose 312 H (70-100) mg/dL Lactate (0.7-2.1) mmol/L Calcium 9.1 (8.4-10.2) mg/dL Total Bilirubin 0.6 (0.2-1.3) mg/dL AST 25 (14-36) IU/L ALT 27 (<35) IU/L Alkaline Phosphatase 75 (38-126) U/L Total Protein 7.5 (6.3-8.2) g/dL Albumin 4.0 (3.5-5.0) g/dL Globulin 3.5 (1.7-4.1) g/dL Albumin/Globulin Ratio 1.1 (1.0-2.8) Procalcitonin < 0.05 (<0.5) ng/mL Serum , Qual (Negative) Urine Color Urine Appearance Urine pH (4.5-8.0) Ur Specific [place] (1.000-1.035) Urine Protein (Negative) Urine Glucose (UA) (Negative) g/dL Urine Ketones (NEGATIVE) Urine Occult Blood (Negative) Urine Nitrate (Negative) Urine Bilirubin (NEGATIVE) Urine Urobilinogen (0.2) E.U./dL Ur Leukocyte Esterase (NEGATIVE) Urine RBC (0-5/HPF) Urine WBC (0-5/HPF) Urine Bacteria (None) Ur Culture Indicated? 11/26/19 11/26/19 11/26/19 Range/Units 14:15 14:15 19:00 WBC (4.5-11.0) X10^3/uL RBC (4.0-5.2) X10^6/uL Hgb (12.0-16.0) g/dL Hct (36-46) % MCV (80-100) fL MCH (26-34) PG MCHC (30-36) % RDW (11.6-14.8) % Plt Count (150-400) X10^3/uL Neut % (Auto) (50-75) % Lymph % (Auto) (25-40) % [place] % (Auto) (3-14) % Eos % (Auto) (2-4) % Baso % (Auto) (0-2) % Neut # (Auto) (8950-8627) /uL Lymph # (Auto) (5535-0422) /uL [place] # (Auto) (0-900) /uL Eos # (Auto) (0-450) /uL Baso # (Auto) (0-100) /uL Sodium (137-145) mmol/L Potassium (3.4-5.1) mmol/L Chloride (98-107) mmol/L Carbon Dioxide (22-32) mmol/L BUN (7-17) mg/dL Creatinine (0.52-1.04) mg/dL Estimated GFR (>60) mL/min BUN/Creatinine Ratio (6-22) Glucose (70-100) mg/dL Lactate 1.4 (0.7-2.1) mmol/L Calcium (8.4-10.2) mg/dL Total Bilirubin (0.2-1.3) mg/dL AST (14-36) IU/L ALT (<35) IU/L Alkaline Phosphatase (38-126) U/L Total Protein (6.3-8.2) g/dL Albumin (3.5-5.0) g/dL Globulin (1.7-4.1) g/dL Albumin/Globulin Ratio (1.0-2.8) Procalcitonin (<0.5) ng/mL Serum , Qual Negative (Negative) Urine Color Red Urine Appearance Cloudy Urine pH 5.0 (4.5-8.0) Ur Specific Lannon 1.020 (1.000-1.035) Urine Protein 1+ H (Negative) Urine Glucose (UA) 2+ H (Negative) g/dL Urine Ketones Negative (NEGATIVE) Urine Occult Blood 3+ H (Negative) Urine Nitrate Negative (Negative) Urine Bilirubin Negative (NEGATIVE) Urine Urobilinogen 0.2 (0.2) E.U./dL Ur Leukocyte Esterase Negative (NEGATIVE) Urine RBC >100/hpf H (0-5/HPF) Urine WBC None seen (0-5/HPF) Urine Bacteria None seen (None) Ur Culture Indicated? Cult not indicated Imaging Data Soft tissue neck CT: Radiologist's Impression: [address] [place] [address] CT Scan Report Addendum Patient: Mary Anne Maria R#: [id number] : 1975Acct:[id number] Age/Sex: 43 / FDate of Service: 11/26/19 Loc: ED Accession Number: [id number] Procedure: CT soft tissue neck w con Ordering Provider: Vaishali Landaverde ADDENDUM This report includes an Addendum and supersedes previous reports for this exam. PROCEDURE: CT SOFT TISSUE NECK W CON INDICATIONS: abscess right jaw, swelling into ear, jaw TECHNIQUE: After the administration of intravenous contrast, 3.0 mm axial sections acquired from the sella to the aortic arch. Additional oblique axial 3.0 mm sections acquired through the pharynx. 3 mm thick coronal and sagittal reformats were generated. For radiation dose reduction, the following was used: automated exposure control. COMPARISON: None. FINDINGS: Image quality: Excellent. Lymph nodes: No enlarged lymph nodes seen throughout the neck. Prominent bilateral level I and level II neck lymph nodes are noted which do not meet pathologic size criteria. Vessels: Visualized vasculature appears patent. Neck spaces: The oropharynx, nasopharynx, and pharynx demonstrate no mucosal lesions. The vocal cords, false vocal cords, pyriform sinuses, epiglottis, vallecula, and tongue base all appear normal. Skin thickening and deep soft tissue swelling noted in the right lateral neck in the lateral margin of the superficial lobe of the right parotid gland. Soft tissue swelling noted in the right lower ear and portions of the right external auditory canal. No abscess. Glands: The parotid and submandibular glands appear normal. Thyroid gland is normal. Miscellaneous: Visualized brain and orbits appear normal. Lung apices appear clear. Superficial soft tissues appear normal. Bones: No suspicious bony lesions. Visualized sinuses and mastoids appear unremarkable. IMPRESSION: 1. Extensive soft tissue inflammation involving the right lateral neck and right ear most compatible with otitis externa/infection cellulitis. 2. No abscess. Dictated by: Yvonne Briseno MD, PhD on 11/26/2019 at 16:10 Approved by: Yvonne Briseno MD, PhD on 11/26/2019 at 16:17 ADDENDUM: The patient provider, TERRA Montaño, requested targeted reevaluation of the mastoids to exclude mastoiditis. The mastoid air cells are clear bilaterally. There is no evidence for osseous erosions adjacent to soft tissue swelling described in the right lateral neck and right ear. No evidence for acute mastoiditis. Dictated by: Abram Edmond M.D. on 11/26/2019 at 18:32 Approved by: Abram Edmond M.D. on 11/26/2019 at 18:33 Addendum Dictated By:Abram Edmond MD Addendum Signed By: Addendum Cosigned By: DD/ TD/TT: 11/26/19 PROCEDURE: CT SOFT TISSUE NECK W CON INDICATIONS: abscess right jaw, swelling into ear, jaw TECHNIQUE: After the administration of intravenous contrast, 3.0 mm axial sections acquired from the sella to the aortic arch. Additional oblique axial 3.0 mm sections acquired through the pharynx. 3 mm thick coronal and sagittal reformats were generated. For radiation dose reduction, the following was used: automated exposure control. COMPARISON: None. FINDINGS: Image quality: Excellent. Lymph nodes: No enlarged lymph nodes seen throughout the neck. Prominent bilateral level I and level II neck lymph nodes are noted which do not meet pathologic size criteria. Vessels: Visualized vasculature appears patent. Neck spaces: The oropharynx, nasopharynx, and pharynx demonstrate no mucosal lesions. The vocal cords, false vocal cords, pyriform sinuses, epiglottis, vallecula, and tongue base all appear normal. Skin thickening and deep soft tissue swelling noted in the right lateral neck in the lateral margin of the superficial lobe of the right parotid gland. Soft tissue swelling noted in the right lower ear and portions of the right external auditory canal. No abscess. Glands: The parotid and submandibular glands appear normal. Thyroid gland is normal. Miscellaneous: Visualized brain and orbits appear normal. Lung apices appear clear. Superficial soft tissues appear normal. Bones: No suspicious bony lesions. Visualized sinuses and mastoids appear unremarkable. IMPRESSION: 1. Extensive soft tissue inflammation involving the right lateral neck and right ear most compatible with otitis externa/infection cellulitis. 2. No abscess. Dictated by: Yvonne Briseno MD, PhD on 11/26/2019 at 16:10 Approved by: Yvonne Briseno MD, PhD on 11/26/2019 at 16:17 ECG Data Attestation: I personally reviewed and interpreted this ECG as follows: Interpretation: Sinus tachycardia, ventricular rate 101. P.r. 178. QRS 97. No ST elevation depression noted. Viewed by Dr Kostas WELLS Narrative Medical decision making narrative: The patient is a 43-year-old female who presents with a chief complaint of a wound on the right side of her face with associated drainage and erythema. Wound culture was taken. She has no signs of systemic infection, no elevated leukocytosis, elevated lactate or elevated procalcitonin. However she has been using doxycycline as an outpatient and getting worse. She has comorbidities including history of MRSA as well as diabetes. CT scan was taken to help rule out any acute abscess. It is possible she ready happened drained. I spoke with Dr. rubio hospitalists regarding admission for the patient given her failed outpatient treatment as well as comorbidities. She requested imaging to evaluate for mastoiditis, so I spoke with Radiology who viewed her soft tissue neck CT and help rule out mastoiditis. Additionally the patient does not have any pain on her mastoid. EKG was taken as the patient was hypertensive. I had ordered hydralazine, Dr. leak with per for labetalol and unfortunately hydralazine was already given. Patient was started on vancomycin as well as Rocephin, attempted to change Rocephin to Zosyn however the patient had a reduced received her Rocephin. The patient received morphine and Dilaudid for pain throughout her stay in the emergency department. After the hydralazine her blood pressure decreased to the 160s. Again she den ies any chest pain or shortness of breath. She states that she is happy to come into the hospital given that she came back sicker with her previous cellulitis several months ago. Patient states understanding of admission and is okay with plan of care <Goldy Kenyon, DO - Last Filed: 11/26/19 20:18> Lab Data Labs: Lab Results 11/26/19 11/26/19 11/26/19 Range/Units 14:15 14:15 14:15 WBC 10.8 (4.5-11.0) X10^3/uL RBC 4.66 (4.0-5.2) X10^6/uL Hgb 14.0 (12.0-16.0) g/dL Hct 39.8 (36-46) % MCV 85.3 (80-100) fL MCH 30.0 (26-34) PG MCHC 35.2 (30-36) % RDW 13.0 (11.6-14.8) % Plt Count 252 (150-400) X10^3/uL Neut % (Auto) 73.1 (50-75) % Lymph % (Auto) 16.3 L (25-40) % [place] % (Auto) 7.1 (3-14) % Eos % (Auto) 2.3 (2-4) % Baso % (Auto) 1.2 (0-2) % Neut # (Auto) 7900 H (3478-8031) /uL Lymph # (Auto) 1800 (9450-7336) /uL [place] # (Auto) 800 (0-900) /uL Eos # (Auto) 300 (0-450) /uL Baso # (Auto) 100 (0-100) /uL Sodium 134 L (137-145) mmol/L Potassium 4.4 (3.4-5.1) mmol/L Chloride 100 (98-107) mmol/L Carbon Dioxide 27 (22-32) mmol/L BUN 12 (7-17) mg/dL Creatinine 0.33 L (0.52-1.04) mg/dL Estimated GFR > 60.0 (>60) mL/min BUN/Creatinine Ratio 36.4 H (6-22) Glucose 312 H (70-100) mg/dL Lactate (0.7-2.1) mmol/L Calcium 9.1 (8.4-10.2) mg/dL Total Bilirubin 0.6 (0.2-1.3) mg/dL AST 25 (14-36) IU/L ALT 27 (<35) IU/L Alkaline Phosphatase 75 (38-126) U/L Total Protein 7.5 (6.3-8.2) g/dL Albumin 4.0 (3.5-5.0) g/dL Globulin 3.5 (1.7-4.1) g/dL Albumin/Globulin Ratio 1.1 (1.0-2.8) Procalcitonin < 0.05 (<0.5) ng/mL Serum , Qual (Negative) Urine Color Urine Appearance Urine pH (4.5-8.0) Ur Specific [place] (1.000-1.035) Urine Protein (Negative) Urine Glucose (UA) (Negative) g/dL Urine Ketones (NEGATIVE) Urine Occult Blood (Negative) Urine Nitrate (Negative) Urine Bilirubin (NEGATIVE) Urine Urobilinogen (0.2) E.U./dL Ur Leukocyte Esterase (NEGATIVE) Urine RBC (0-5/HPF) Urine WBC (0-5/HPF) Urine Bacteria (None) Ur Culture Indicated? 11/26/19 11/26/19 11/26/19 Range/Units 14:15 14:15 19:00 WBC (4.5-11.0) X10^3/uL RBC (4.0-5.2) X10^6/uL Hgb (12.0-16.0) g/dL Hct (36-46) % MCV (80-100) fL MCH (26-34) PG MCHC (30-36) % RDW (11.6-14.8) % Plt Count (150-400) X10^3/uL Neut % (Auto) (50-75) % Lymph % (Auto) (25-40) % [place] % (Auto) (3-14) % Eos % (Auto) (2-4) % Baso % (Auto) (0-2) % Neut # (Auto) (0345-1646) /uL Lymph # (Auto) (7964-3792) /uL [place] # (Auto) (0-900) /uL Eos # (Auto) (0-450) /uL Baso # (Auto) (0-100) /uL Sodium (137-145) mmol/L Potassium (3.4-5.1) mmol/L Chloride (98-107) mmol/L Carbon Dioxide (22-32) mmol/L BUN (7-17) mg/dL Creatinine (0.52-1.04) mg/dL Estimated GFR (>60) mL/min BUN/Creatinine Ratio (6-22) Glucose (70-100) mg/dL Lactate 1.4 (0.7-2.1) mmol/L Calcium (8.4-10.2) mg/dL Total Bilirubin (0.2-1.3) mg/dL AST (14-36) IU/L ALT (<35) IU/L Alkaline Phosphatase (38-126) U/L Total Protein (6.3-8.2) g/dL Albumin (3.5-5.0) g/dL Globulin (1.7-4.1) g/dL Albumin/Globulin Ratio (1.0-2.8) Procalcitonin (<0.5) ng/mL Serum , Qual Negative (Negative) Urine Color Red Urine Appearance Cloudy Urine pH 5.0 (4.5-8.0) Ur Specific [place] 1.020 (1.000-1.035) Urine Protein 1+ H (Negative) Urine Glucose (UA) 2+ H (Negative) g/dL Urine Ketones Negative (NEGATIVE) Urine Occult Blood 3+ H (Negative) Urine Nitrate Negative (Negative) Urine Bilirubin Negative (NEGATIVE) Urine Urobilinogen 0.2 (0.2) E.U./dL Ur Leukocyte Esterase Negative (NEGATIVE) Urine RBC >100/hpf H (0-5/HPF) Urine WBC None seen (0-5/HPF) Urine Bacteria None seen (None) Ur Culture Indicated? Cult not indicated Discharge Plan Departure Admit Date/Time: 11/26/19 19:13 Admit Provider: Trinidad Rubio <Goldy Kenyon DO - Last Filed: 11/26/19 20:18> Cosign ED Attending Cosignature Attestation: I was immediately available in the department for consultation. This documentation has been reviewed and I agree with assessment and plan. Supervised by Goldy Kenyon DO
[2019-11-26 14:23] LABS: Add Manual Diff / Slide Review NO; Basophils Absolute Auto 100 /uL (0-100); Basophils Percent Auto 1.2 % (0-2); Eosinophils Absolute Auto 300 /uL (0-450); Eosinophils Percent Auto 2.3 % (2-4); Hematocrit 39.8 % (36-46); Lymphocytes Absolute Auto 1800 /uL (1100-4500); Lymphocytes Percent Auto 16.3 % (25-40); Mean Corpuscular HGB Conc 35.2 % (30-36); Mean Corpuscular Volume 85.3 fL (80-100); Monocytes Absolute Auto 800 /uL (0-900); Monocytes Percent Auto 7.1 % (3-14); Neutrophils Absolute Auto 7900 /uL (1500-7000); Neutrophils Percent Auto 73.1 % (50-75); Platelet Count 252 X10^3/uL (150-400); Red Blood Cell Count 4.66 X10^6/uL (4.0-5.2); White Blood Cell Count 10.8 X10^3/uL (4.5-11.0)
--- NOTE | 2019-11-26 14:26 | PC.NURSE ---
right face w/ extensive redness, swelling and hot skin right face encompassing ear. States she feels as if jaw is involved and feels 'tightness' when she swallows. Pain is 9/10. Pt took doxycycline x 2 days w/o improvement. denies fever / chills. right ear is swollen and malformed. redness and swelling extend beyond right ear toward scalp.
[2019-11-26] MEDS: ONDANSETRON 4 MG/2 ML INJ IV (14:33)
[2019-11-26] MEDS: MORPHINE 4 MG/ML INJ IV ×2 (14:33→16:16)
[2019-11-26] MEDS: SODIUM CHLORIDE 0.9% 1,000 ML 1000 ML IV (14:34)
[2019-11-26 14:35] LABS: Lactate (Lactic Acid) 1.4 mmol/L (0.7-2.1)
[2019-11-26 14:38] LABS: Alanine Aminotransferase 27 IU/L (<35); Albumin Globulin Ratio 1.1 (1.0-2.8); Alkaline Phosphatase 75 U/L (38-126); Aspartate Aminotransferase 25 IU/L (14-36); BUN Creatinine Ratio 36.4 (6-22); Bilirubin Total 0.6 mg/dL (0.2-1.3); Blood Urea Nitrogen 12 mg/dL (7-17); Calcium 9.1 mg/dL (8.4-10.2); Carbon Dioxide 27 mmol/L (22-32); Chloride 100 mmol/L (98-107); Estimated Glomerular Filt Rate > 60.0 mL/min (>60); Globulin 3.5 g/dL (1.7-4.1); Glucose 312 mg/dL (70-100); HEMOLYSIS 17 (0-50); Potassium 4.4 mmol/L (3.4-5.1); Sodium 134 mmol/L (137-145); Total Protein 7.5 g/dL (6.3-8.2)
--- NOTE | 2019-11-26 14:39 | DI.CT.S_ITS ---
PROCEDURE: CT SOFT TISSUE NECK W CON INDICATIONS: abscess right jaw, swelling into ear, jaw TECHNIQUE: After the administration of intravenous contrast, 3.0 mm axial sections acquired from the sella to the aortic arch. Additional oblique axial 3.0 mm sections acquired through the pharynx. 3 mm thick coronal and sagittal reformats were generated. For radiation dose reduction, the following was used: automated exposure control. COMPARISON: None. FINDINGS: Image quality: Excellent. Lymph nodes: No enlarged lymph nodes seen throughout the neck. Prominent bilateral level I and level II neck lymph nodes are noted which do not meet pathologic size criteria. Vessels: Visualized vasculature appears patent. Neck spaces: The oropharynx, nasopharynx, and pharynx demonstrate no mucosal lesions. The vocal cords, false vocal cords, pyriform sinuses, epiglottis, vallecula, and tongue base all appear normal. Skin thickening and deep soft tissue swelling noted in the right lateral neck in the lateral margin of the superficial lobe of the right parotid gland. Soft tissue swelling noted in the right lower ear and portions of the right external auditory canal. No abscess. Glands: The parotid and submandibular glands appear normal. Thyroid gland is normal. Miscellaneous: Visualized brain and orbits appear normal. Lung apices appear clear. Superficial soft tissues appear normal. Bones: No suspicious bony lesions. Visualized sinuses and mastoids appear unremarkable. IMPRESSION: 1. Extensive soft tissue inflammation involving the right lateral neck and right ear most compatible with otitis externa/infection cellulitis. 2. No abscess. Dictated by: Yvonne Briseno MD, PhD on 11/26/2019 at 16:10 Approved by: Yvonne Briseno MD, PhD on 11/26/2019 at 16:17
[2019-11-26 14:54] LABS: Pregnancy Test Serum,Qual Negative (Negative)
[2019-11-26 15:09] LABS: Procalcitonin < 0.05 ng/mL (<0.5)
[2019-11-26] MEDS: HYDROMORPHONE 1 MG INJ IV (17:03)
[2019-11-26] MEDS: SODIUM CHLORIDE 0.9% 1,000 ML 125 ML IV (17:32)
[2019-11-26] MEDS: CEFTRIAXONE 2 GM/50 ML FROZ.PIGGY IV (17:32)
[2019-11-26] MEDS: HYDRALAZINE 20 MG/ML VIAL 10 MG IV (18:04)
[2019-11-26] MEDS: KETOROLAC 60 MG/2 ML VIAL 30 MG IV (18:07)
[2019-11-26] MEDS: VANCOMYCIN 2,000 MG/400 ML PIGGYBACK 200 MG IV (19:07)
[2019-11-26 19:17] LABS: Bacteria Urine None Seen; WBC Urine None Seen (0-5/HPF)
[2019-11-26 19:23] LABS: Appearance Urine UA CLOUDY; Bilirubin Urine UA NEGATIVE (NEGATIVE); Color Urine UA RED; Glucose Urine UA 2+ g/dL (Negative); Ketones Urine UA NEGATIVE (NEGATIVE); Leukocyte Esterase Urine UA NEGATIVE (NEGATIVE); Nitrite Urine UA NEGATIVE (Negative); Occult Blood Urine UA 3+ (Negative); Protein Urine UA 1+ (Negative); Urobilinogen Urine UA 0.2 E.U./dL (0.2)
[2019-11-26 19:25] LABS: Culture Indicated Urine Cult Not Indicated; RBC Urine >100/HPF (0-5/HPF)
--- NOTE | 2019-11-26 20:39 | PM.HP.1 ---
History of Present Illness History of Present Illness Date Patient Seen: 11/26/19 Time Patient Seen: 20:05 Chief complaint: sore on lt side of face sent per phys Narrative: Ms. 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 The patient reports 4 days ago developing which she believed to be a pimple on her right face at the angle of the jaw. She manipulated the lesion and developed progressive worsening redness swelling and pain extending up to including the ear lobe and to the lateral neck and along the jawline. Patient has had associated symptoms of malaise and pain with swallowing. She self-treated with 4 doses of doxycycline over 2 days which she had from previous MRSA cellulitis. She denies complaints of fevers or chills and has no known COVID-19 exposures. She denies complaints of changes in vision or hearing no nasal drainage. She endorses worsening right ear tinnitus with but no muffling of sound. She denies complaints of chest pain or palpitations, shortness of breath cough or wheezing. She reports no abdominal pain and has no heartburn, nausea or vomiting. Denies changes in bowel or bladder habits. She started her menstrual period 2 days ago. Upon arrival to the ER the patient has a temperature 97? with heart rate of 110, blood pressure 178/100, respirations of 14, saturating 97% on room air. A CT is obtained finding extensive soft tissue inflammation of the right lateral neck and ear without mastoid involvement or abscess cavity. On laboratory analysis the patient has white count of 10.8, hemoglobin of 14.0, hematocrit of 39.8, platelets of 252. Her electrolytes are all within normal range she has a BUN of 12 and a creatinine of 0.33. She has a nonfasting glucose of 312. Her liver functions are all within normal range and has an albumin of 4.0. Her lactic acid is 1.4 and has a procalcitonin less than 0.05. Serum test is negative. Urinalysis finds red urine with with a specific gravity of 1.020, 2+ glucose, 3+ blood but negative for leukocyte esterase, nitrites or WBCs. Culture sent of the wound with g stain finding gram-positive cocci. The patient is given vancomycin and ceftriaxone in the emergency department. The patient is admitted to the medicine service for treatment of facial cellulitis. Patient History Medical History Attention deficit disorder (Acute) Depression with anxiety (Acute) HTN (hypertension) (Chronic) Meningioma (Acute) Morbid obesity with BMI of 45.0-49.9, adult (Acute) Obstructive sleep apnea of adult (Chronic) Primary insomnia (Chronic) Snoring (Chronic ~1987) Tinnitus of right ear (Acute) Type 2 diabetes mellitus (Chronic) Surgical History History of cholecystectomy (Acute) Family & Social History Family History Father Lesion of parotid gland Cancer Mother Diabetes mellitus Social History: household members significant other Safety & Behavioral: Feels Safe in Current Yes Environment Tobacco & Substance use: Smoking Status Former smoker alcohol intake frequency holiday/special occasion Substance Use Type marijuana Comment: The patient lives in a single family home with her significant other whom she has been with for 15 years. Smoking: Patient quit smoking approximately 1 year ago before which she was smoking 1 pack per week for approximately 5 years. Alcohol: Patient denies alcohol consumption. Substance use: The patient denies recreational pharmaceuticals but has been using marijuana as adjunct for pain management over the last several days. Code status: Patient has no formal advanced directives. In direct discussion with the patient she states her desire to be FULL CODE. She designates Gilberto Gilbert, her significant other to be her surrogate decision maker. Meds Home Medications and Allergies Home Medications Medication Instructions Recorded Confirmed Type blood sugar diagnostic [Accu-Chek #100 each 07/18/19 11/26/19 Rx Yvonne Plus test strp] blood-glucose meter [Accu-Chek #1 each 07/18/19 11/26/19 Rx Yvonne Plus Meter] lancets [Accu-Chek Fastclix Lancet #50 each 07/18/19 11/26/19 Rx Drum] pen needle, diabetic #100 each 07/18/19 11/26/19 Rx fluoxetine 20 mg PO QPM 11/26/19 11/26/19 History gabapentin 600 mg PO BEDTIME 11/26/19 11/26/19 History glyburide 10 mg PO QPM 11/26/19 11/26/19 History insulin glargine [Lantus Solostar 35 unit SUBCUT BEDTIME 11/26/19 11/26/19 History U-100 Insulin] losartan 50 mg PO BEDTIME 11/26/19 11/26/19 History metformin 500 mg PO QAM 11/26/19 11/26/19 History methylphenidate HCl See Rx Instructions .ROUTE .COMPLEX 11/26/19 11/26/19 History zolpidem 10 mg PO BEDTIME PRN 11/26/19 11/26/19 History Allergies Allergy/AdvReac Type Severity Reaction Status Date / Time No Known Drug Allergies Allergy Verified 07/16/19 04:31 Review of Systems Review of Systems ROS: Yes All systems reviewed with the patient and are negative except as otherwise documented Exam Vital Signs (past 8 hours): - 11/26/19 12:56 11/26/19 14:17 11/26/19 14:38 Temperature 97 F L Pulse Rate 110 H 108 H 99 H Respiratory Rate 14 18 20 Blood Pressure 178/100 H Blood Pressure [Right Wrist] 192/98 H 170/93 H Pulse Oximetry 97 99 98 11/26/19 16:05 11/26/19 16:47 11/26/19 18:04 Temperature Pulse Rate 99 H 96 H 99 H Respiratory Rate 14 15 Blood Pressure 195/94 H Blood Pressure [Right Wrist] 210/103 H 217/105 H Pulse Oximetry 98 98 11/26/19 18:10 11/26/19 19:19 11/26/19 19:24 Temperature Pulse Rate 90 88 94 H Respiratory Rate 18 16 Blood Pressure 168/72 H Blood Pressure [Right Wrist] 195/99 H 168/72 H Pulse Oximetry 99 99 Oxygen Delivery Method Room Air Narrative Exam Narrative: GENERAL APPEARANCE: well developed, morbidly obese female sitting semi recumbent in bed mildly uncomfortable appearing in no acute distress. HEENT: Draining lesion at the angle of the right mandible with induration extending from the tragus anteriorly along the jawline, inferiorly to the sternal cleidomastoid and involving the ear lobe with pain on tragus manipulation, no mastoid tenderness, PERRLA, conjunctiva without erythema or injection, sclera anicteric, EOMs intact without nystagmus, no rhinorrhea, mucous membranes are moist and pink without lesions or exudate. NECK/THYROID: Diminished range of motion secondary to swelling and pain, voice is clear, no stridor, no thyromegaly, trachea midline. LYMPH NODES: no supraclavicular lymphadenopathy. SKIN: [place], warm and dry, right facial cellulitis as above HEART: regular rate and rhythm, S1-S2, no murmur, no rubs or gallops, brisk capillary refill, no edema LUNGS: clear to auscultation bilaterally, no coarseness crackles or wheezing, no cough present CHEST: Symmetrical movement, no accessory muscle use, good tidal volume. ABDOMEN: Soft, round, dull to percussion, no abdominal tenderness, no organomegaly, no flank tenderness, active bowel tones. EXTREMITIES: moves all extremities, strength is 5/5 and symmetrical, no deformities or joint effusions. NEUROLOGIC: AAO x4, cranial nerves II-XII grossly intact, diminished sensation bilateral feet, hearing assessed as equal bilaterally. PSYCH: Good eye contact, cooperative, appropriate with stable behavior Objective Labs Result Diagrams: 11/26/19 14:15 11/26/19 14:15 Labs: Laboratory Results - last 24 hr 11/26/19 11/26/19 11/26/19 14:15 14:15 14:15 WBC 10.8 RBC 4.66 Hgb 14.0 Hct 39.8 MCV 85.3 MCH 30.0 MCHC 35.2 RDW 13.0 Plt Count 252 Neut % (Auto) 73.1 Lymph % (Auto) 16.3 L [place] % (Auto) 7.1 Eos % (Auto) 2.3 Baso % (Auto) 1.2 Neut # (Auto) 7900 H Lymph # (Auto) 1800 [place] # (Auto) 800 Eos # (Auto) 300 Baso # (Auto) 100 Sodium 134 L Potassium 4.4 Chloride 100 Carbon Dioxide 27 BUN 12 Creatinine 0.33 L Estimated GFR > 60.0 BUN/Creatinine Ratio 36.4 H Glucose 312 H Lactate Calcium 9.1 Total Bilirubin 0.6 AST 25 ALT 27 Alkaline Phosphatase 75 Total Protein 7.5 Albumin 4.0 Globulin 3.5 Albumin/Globulin Ratio 1.1 Procalcitonin < 0.05 Serum , Qual Urine Color Urine Appearance Urine pH Ur Specific [place] Urine Protein Urine Glucose (UA) Urine Ketones Urine Occult Blood Urine Nitrate Urine Bilirubin Urine Urobilinogen Ur Leukocyte Esterase Urine RBC Urine WBC Urine Bacteria Ur Culture Indicated? 11/26/19 11/26/19 11/26/19 14:15 14:15 19:00 WBC RBC Hgb Hct MCV MCH MCHC RDW Plt Count Neut % (Auto) Lymph % (Auto) [place] % (Auto) Eos % (Auto) Baso % (Auto) Neut # (Auto) Lymph # (Auto) [place] # (Auto) Eos # (Auto) Baso # (Auto) Sodium Potassium Chloride Carbon Dioxide BUN Creatinine Estimated GFR BUN/Creatinine Ratio Glucose Lactate 1.4 Calcium Total Bilirubin AST ALT Alkaline Phosphatase Total Protein Albumin Globulin Albumin/Globulin Ratio Procalcitonin Serum , Qual Negative Urine Color Red Urine Appearance Cloudy Urine pH 5.0 Ur Specific [place] 1.020 Urine Protein 1+ H Urine Glucose (UA) 2+ H Urine Ketones Negative Urine Occult Blood 3+ H Urine Nitrate Negative Urine Bilirubin Negative Urine Urobilinogen 0.2 Ur Leukocyte Esterase Negative Urine RBC >100/hpf H Urine WBC None seen Urine Bacteria None seen Ur Culture Indicated? Cult not indicated Assessment & Plan Assessment & Plan narrative: This is a 43-year-old female who presents to the ER with 4 days of progressive redness, pain and swelling to the right face and jaw with wound drainage over the last day. Patient treated initially with residual doxycycline she had from prior cellulitic infection without improvement. Patient does have a history of MRSA cellulitis. 1. Acute cellulitis right right face and neck, present on admission. Active. -Patient reports developing a ?pimple? 4 days ago which she manipulated and subsequently and expanding redness swelling and pain. She self-treated with 4 doses of doxycycline over 2 days without improvement. Associated malaise without fevers or chills, diaphoresis, nausea or vomiting. -patient has a white count of 10.8, lactic acid of 1.4 and procalcitonin of less than 0 0.05. -patient with previous MRSA infection and initial Gram stain from wound culture identifies gram-positive cocci. Patient placed on contact isolation. -Ordered vancomycin with pharmacy to dose, 1st 2000 mg dose given in the emergency department. -ordered ceftriaxone 2 g IV daily. -will monitor white count and procalcitonin daily 2. Diabetes mellitus type 2, non-insulin using, chronic, present on admission. Stable. -on ER laboratory findings the patient has a nonfasting glucose of 312. Her last hemoglobin A1c on record was July 2019 and was 11.0%. -Patient reports taking her medications as directed including metformin glyburide and Lantus 35 units daily. -glucose is checked on arrival to the floor and found to be 175. -ordered fingerstick glucose checks a.c. and HS with medium dose correctional insulin. -continue Lantus 35 units daily at bedtime and gabapentin 300 mg nightly for neuropathy. -will hold glyburide and metformin at this time and manage with correctional insulin, may consider addition of parental insulin. -ordered small constant carbohydrate diet. 3. Hypertension, chronic, present on admission. Stable. -blood pressure was elevated on admission to the ER at 178/100, increasing to a peak of 217/107 most likely result of pain while in the ER. -the patient received labetalol 20 mg IV with marked improvement in pressure to 168/72. -Continue home regimen of losartan 50 mg daily. -will follow blood pressures and may consider increasing to 100 mg daily with good renal function. 4. Obstructive sleep apnea on CPAP, chronic, present on admission. Stable. -on previous hospitalization the patient was intolerant of hospital equipment, patient has had difficulty using CPAP due to the straps persisting on the inflamed area of her face. -she will non last ask her partner to bring in her CPAP machine. -respiratory therapy to consult a, evaluate and treat for GOMEZ. -CPAP per protocol. 5. Right temporal meningioma with chronic right-sided tinnitus and schwannoma, chronic, present on admission. Stable. -Currently under surveillance by neurology at [facility], Dr. Gilmer Nunez. 6. Depression with anxiety, chronic, present on admission. Stable. -Continue fluoxetine 60 mg daily at bedtime. 7. Attention deficit disorder, chronic, present on admission. Stable. -Continue methylphenidate 10 mg 2 tablets in the morning and 1 tablet at noon. 8. Insomnia, chronic, present on admission. Stable. -patient received Dilaudid in the ER and has oxycodone prescribed for pain, will hold still a bit him for now. -ordered melatonin 6 mg at bedtime. Isolation: Contact, history MRSA with gram-positive cocci in wound. VTE prophylaxis: Bilateral SCDs, heparin. IV fluid: Saline lock. Diet: Small constant carbohydrate Code status: FULL CODE, patient's significant other Darcy is her surrogate decision maker. The patient is admitted to the hospital due to the severity of her symptoms and risk for complications and adverse events. The patient is admitted as an inpatient with expected length of stay to be greater than 2 midnights. COVID-19 COVID-19 status: Not tested Scores GCS Elizabeth coma scale eye opening: Spontaneous [place] coma scale verbal response: Orientated Elizabeth coma scale motor response: Obey commands [place] coma scale total score: 15
[2019-11-26] MEDS: OXYCODONE IR 5 MG TABLET PO (21:02)
[2019-11-26] MEDS: ACETAMINOPHEN 325 MG TABLET 975 MG PO (21:02)
[2019-11-26] MEDS: LOSARTAN 50 MG TABLET PO (21:03)
[2019-11-26] MEDS: HEPARIN 5,000 UNIT/ML VIAL 5000 UNIT SUBCUT (21:03)
[2019-11-26] MEDS: GABAPENTIN 600 MG TABLET PO (21:03)
[2019-11-26] MEDS: INSULIN GLARGINE 100 UNIT/ML 3ML PEN 35 UNIT SUBCUT (21:22)
[2019-11-26] MEDS: INSULIN ASPART 100 UNIT/ML INSULN PEN SUBCUT (21:22)
[2019-11-27] VITALS (18 sets, daily range): BP systolic 96–168; BP diastolic 57–93; PULSE 88–102; RESP 12–20; TEMP 36.2–36.8; O2SAT 95–100
[2019-11-27] MEDS: OXYCODONE IR 10 MG TABLET PO ×3 (00:03→22:15)
[2019-11-27] MEDS: INSULIN ASPART 100 UNIT/ML INSULN PEN SUBCUT ×5 (01:14→21:07)
[2019-11-27] MEDS: KETOROLAC 30 MG/ML VIAL IV ×3 (03:00→21:10)
[2019-11-27] MEDS: VANCOMYCIN 2,000 MG/400 ML PIGGYBACK 200 MG IV ×2 (04:20→16:27)
[2019-11-27 05:35] LABS: Add Manual Diff / Slide Review NO; Basophils Absolute Auto 100 /uL (0-100); Basophils Percent Auto 1.3 % (0-2); Eosinophils Absolute Auto 300 /uL (0-450); Eosinophils Percent Auto 2.3 % (2-4); Hematocrit 38.7 % (36-46); Hemoglobin 13.3 g/dL (12.0-16.0); Lymphocytes Absolute Auto 1900 /uL (1100-4500); Lymphocytes Percent Auto 16.8 % (25-40); Mean Corpuscular HGB Conc 34.2 % (30-36); Mean Corpuscular Hemoglobin 29.7 PG (26-34); Mean Corpuscular Volume 86.7 fL (80-100); Monocytes Absolute Auto 900 /uL (0-900); Monocytes Percent Auto 7.8 % (3-14); Neutrophils Absolute Auto 8000 /uL (1500-7000); Neutrophils Percent Auto 71.8 % (50-75); Platelet Count 236 X10^3/uL (150-400); Red Blood Cell Count 4.46 X10^6/uL (4.0-5.2); White Blood Cell Count 11.1 X10^3/uL (4.5-11.0)
[2019-11-27 05:40] LABS: BUN Creatinine Ratio 26.8 (6-22); Blood Urea Nitrogen 15 mg/dL (7-17); Calcium 8.4 mg/dL (8.4-10.2); Carbon Dioxide 29 mmol/L (22-32); Chloride 98 mmol/L (98-107); Estimated Glomerular Filt Rate > 60.0 mL/min (>60); Glucose 288 mg/dL (70-100); HEMOLYSIS < 15 (0-50); Sodium 133 mmol/L (137-145)
[2019-11-27 06:01] LABS: Procalcitonin < 0.05 ng/mL (<0.5)
--- NOTE | 2019-11-27 08:23 | P.CONS_ITS ---
History of Present Illness Consult details Date Patient Seen: 11/27/19 Time Patient Seen: 08:23 Chief complaint: sore on lt side of face sent per phys Reason for consult: diabetic with face abscess Requesting provider: Morris Sutton Narrative: 43 yo woman with morbid obesity and poorly controled DM2 and h/o MRSA admitted last night with right face abscess. CT showed no fluid collection, but abscess continually drains per the patient. She is not able to tolerate an exam because of tenderness. ROS: Meds Home Medications and Allergies Home Medications Medication Instructions Recorded Confirmed Type blood sugar diagnostic [Accu-Chek #100 each 07/18/19 11/26/19 Rx Yvonne Plus test strp] blood-glucose meter [Accu-Chek #1 each 07/18/19 11/26/19 Rx Yvonne Plus Meter] lancets [Accu-Chek Fastclix Lancet #50 each 07/18/19 11/26/19 Rx Drum] pen needle, diabetic #100 each 07/18/19 11/26/19 Rx fluoxetine 20 mg PO QPM 11/26/19 11/26/19 History gabapentin 600 mg PO BEDTIME 11/26/19 11/26/19 History glyburide 10 mg PO QPM 11/26/19 11/26/19 History insulin glargine [Lantus Solostar 35 unit SUBCUT BEDTIME 11/26/19 11/26/19 History U-100 Insulin] losartan 50 mg PO BEDTIME 11/26/19 11/26/19 History metformin 500 mg PO QAM 11/26/19 11/26/19 History methylphenidate HCl See Rx Instructions .ROUTE .COMPLEX 11/26/19 11/26/19 History zolpidem 10 mg PO BEDTIME PRN 11/26/19 11/26/19 History Allergies Allergy/AdvReac Type Severity Reaction Status Date / Time No Known Drug Allergies Allergy Verified 07/16/19 04:31 Exam Vital Signs (past 8 hours): - 11/27/19 00:30 11/27/19 02:51 11/27/19 05:30 Temperature 97.3 F L 97.7 F Pulse Rate 99 H 97 H Respiratory Rate 18 18 Blood Pressure 159/92 H 134/86 Pulse Oximetry 95 96 98 Oxygen Delivery Method Room Air Oxygen Flow Rate 0 Objective Labs Result Diagrams: 11/27/19 05:10 05/27/20 05:10 Labs: Laboratory Results - last 24 hr 11/26/19 11/26/19 11/26/19 14:15 14:15 14:15 WBC 10.8 RBC 4.66 Hgb 14.0 Hct 39.8 MCV 85.3 MCH 30.0 MCHC 35.2 RDW 13.0 Plt Count 252 Neut % (Auto) 73.1 Lymph % (Auto) 16.3 L [place] % (Auto) 7.1 Eos % (Auto) 2.3 Baso % (Auto) 1.2 Neut # (Auto) 7900 H Lymph # (Auto) 1800 [place] # (Auto) 800 Eos # (Auto) 300 Baso # (Auto) 100 Sodium 134 L Potassium 4.4 Chloride 100 Carbon Dioxide 27 BUN 12 Creatinine 0.33 L Estimated GFR > 60.0 BUN/Creatinine Ratio 36.4 H Glucose 312 H Hemoglobin A1c Lactate Calcium 9.1 Total Bilirubin 0.6 AST 25 ALT 27 Alkaline Phosphatase 75 Total Protein 7.5 Albumin 4.0 Globulin 3.5 Albumin/Globulin Ratio 1.1 Procalcitonin < 0.05 Serum , Qual Urine Color Urine Appearance Urine pH Ur Specific [place] Urine Protein Urine Glucose (UA) Urine Ketones Urine Occult Blood Urine Nitrate Urine Bilirubin Urine Urobilinogen Ur Leukocyte Esterase Urine RBC Urine WBC Urine Bacteria Ur Culture Indicated? 11/26/19 11/26/19 11/26/19 14:15 14:15 19:00 WBC RBC Hgb Hct MCV MCH MCHC RDW Plt Count Neut % (Auto) Lymph % (Auto) [place] % (Auto) Eos % (Auto) Baso % (Auto) Neut # (Auto) Lymph # (Auto) [place] # (Auto) Eos # (Auto) Baso # (Auto) Sodium Potassium Chloride Carbon Dioxide BUN Creatinine Estimated GFR BUN/Creatinine Ratio Glucose Hemoglobin A1c Lactate 1.4 Calcium Total Bilirubin AST ALT Alkaline Phosphatase Total Protein Albumin Globulin Albumin/Globulin Ratio Procalcitonin Serum , Qual Negative Urine Color Red Urine Appearance Cloudy Urine pH 5.0 Ur Specific [place] 1.020 Urine Protein 1+ H Urine Glucose (UA) 2+ H Urine Ketones Negative Urine Occult Blood 3+ H Urine Nitrate Negative Urine Bilirubin Negative Urine Urobilinogen 0.2 Ur Leukocyte Esterase Negative Urine RBC >100/hpf H Urine WBC None seen Urine Bacteria None seen Ur Culture Indicated? Cult not indicated 11/27/19 11/27/19 11/27/19 05:10 05:10 05:10 WBC 11.1 H RBC 4.46 Hgb 13.3 Hct 38.7 MCV 86.7 MCH 29.7 MCHC 34.2 RDW 13.0 Plt Count 236 Neut % (Auto) 71.8 Lymph % (Auto) 16.8 L [place] % (Auto) 7.8 Eos % (Auto) 2.3 Baso % (Auto) 1.3 Neut # (Auto) 8000 H Lymph # (Auto) 1900 [place] # (Auto) 900 Eos # (Auto) 300 Baso # (Auto) 100 Sodium 133 L Potassium 4.0 Chloride 98 Carbon Dioxide 29 BUN 15 Creatinine 0.56 Estimated GFR > 60.0 BUN/Creatinine Ratio 26.8 H Glucose 288 H Hemoglobin A1c Lactate Calcium 8.4 Total Bilirubin AST ALT Alkaline Phosphatase Total Protein Albumin Globulin Albumin/Globulin Ratio Procalcitonin < 0.05 Serum , Qual Urine Color Urine Appearance Urine pH Ur Specific [place] Urine Protein Urine Glucose (UA) Urine Ketones Urine Occult Blood Urine Nitrate Urine Bilirubin Urine Urobilinogen Ur Leukocyte Esterase Urine RBC Urine WBC Urine Bacteria Ur Culture Indicated? 11/27/19 05:10 WBC RBC Hgb Hct MCV MCH MCHC RDW Plt Count Neut % (Auto) Lymph % (Auto) [place] % (Auto) Eos % (Auto) Baso % (Auto) Neut # (Auto) Lymph # (Auto) [place] # (Auto) Eos # (Auto) Baso # (Auto) Sodium Potassium Chloride Carbon Dioxide BUN Creatinine Estimated GFR BUN/Creatinine Ratio Glucose Hemoglobin A1c 10.0 H Lactate Calcium Total Bilirubin AST ALT Alkaline Phosphatase Total Protein Albumin Globulin Albumin/Globulin Ratio Procalcitonin Serum , Qual Urine Color Urine Appearance Urine pH Ur Specific [place] Urine Protein Urine Glucose (UA) Urine Ketones Urine Occult Blood Urine Nitrate Urine Bilirubin Urine Urobilinogen Ur Leukocyte Esterase Urine RBC Urine WBC Urine Bacteria Ur Culture Indicated? Assessment & Plan Assessment & Plan narrative: 43 yo woman with right face abscess. NPO Needs rapid covid test Vancomycin Plan for I and D of right face under anesthesia this PM
--- NOTE | 2019-11-27 08:47 | PM.PN.1 ---
Subjective Subjective Date Patient Seen: 11/27/19 Interval history: Patient is a 43-year-old female with obesity, uncontrolled diabetes, hypertension admitted due to right facial cellulitis after popping a pimple. Patient reports no change in pain and swelling of the right face and jaw area. Denies trouble swallowing. She has been afebrile. Preliminary wound culture growing heavy Staph aureus. Exam Vital Signs (past 8 hours): - 11/27/19 02:51 11/27/19 05:30 11/27/19 08:00 Temperature 97.7 F 97.6 F Pulse Rate 97 H 89 Respiratory Rate 18 18 Blood Pressure 134/86 162/67 H Pulse Oximetry 96 98 98 Oxygen Delivery Method Room Air Oxygen Flow Rate 0 Narrative Exam Narrative: General: Alert and cooperative female HEENT: Draining lesion at angle of right mid mandible with erythema and induration extending from the tragus anteriorly along the jaw line, inferiorly to the sternocleidomastoid and involving the ear lobe, there is exquisite tenderness involved areas, no mastoid tenderness, no conjunctival erythema or drainage Objective Labs Result Diagrams: 11/27/19 05:10 11/27/19 05:10 Labs: Laboratory Results - last 24 hr 11/26/19 11/26/19 11/26/19 14:15 14:15 14:15 WBC 10.8 RBC 4.66 Hgb 14.0 Hct 39.8 MCV 85.3 MCH 30.0 MCHC 35.2 RDW 13.0 Plt Count 252 Neut % (Auto) 73.1 Lymph % (Auto) 16.3 L [place] % (Auto) 7.1 Eos % (Auto) 2.3 Baso % (Auto) 1.2 Neut # (Auto) 7900 H Lymph # (Auto) 1800 [place] # (Auto) 800 Eos # (Auto) 300 Baso # (Auto) 100 Sodium 134 L Potassium 4.4 Chloride 100 Carbon Dioxide 27 BUN 12 Creatinine 0.33 L Estimated GFR > 60.0 BUN/Creatinine Ratio 36.4 H Glucose 312 H Hemoglobin A1c Lactate Calcium 9.1 Total Bilirubin 0.6 AST 25 ALT 27 Alkaline Phosphatase 75 Total Protein 7.5 Albumin 4.0 Globulin 3.5 Albumin/Globulin Ratio 1.1 Procalcitonin < 0.05 Serum , Qual Urine Color Urine Appearance Urine pH Ur Specific [place] Urine Protein Urine Glucose (UA) Urine Ketones Urine Occult Blood Urine Nitrate Urine Bilirubin Urine Urobilinogen Ur Leukocyte Esterase Urine RBC Urine WBC Urine Bacteria Ur Culture Indicated? 11/26/19 11/26/19 11/26/19 14:15 14:15 19:00 WBC RBC Hgb Hct MCV MCH MCHC RDW Plt Count Neut % (Auto) Lymph % (Auto) [place] % (Auto) Eos % (Auto) Baso % (Auto) Neut # (Auto) Lymph # (Auto) [place] # (Auto) Eos # (Auto) Baso # (Auto) Sodium Potassium Chloride Carbon Dioxide BUN Creatinine Estimated GFR BUN/Creatinine Ratio Glucose Hemoglobin A1c Lactate 1.4 Calcium Total Bilirubin AST ALT Alkaline Phosphatase Total Protein Albumin Globulin Albumin/Globulin Ratio Procalcitonin Serum , Qual Negative Urine Color Red Urine Appearance Cloudy Urine pH 5.0 Ur Specific [place] 1.020 Urine Protein 1+ H Urine Glucose (UA) 2+ H Urine Ketones Negative Urine Occult Blood 3+ H Urine Nitrate Negative Urine Bilirubin Negative Urine Urobilinogen 0.2 Ur Leukocyte Esterase Negative Urine RBC >100/hpf H Urine WBC None seen Urine Bacteria None seen Ur Culture Indicated? Cult not indicated 11/27/19 11/27/19 11/27/19 05:10 05:10 05:10 WBC 11.1 H RBC 4.46 Hgb 13.3 Hct 38.7 MCV 86.7 MCH 29.7 MCHC 34.2 RDW 13.0 Plt Count 236 Neut % (Auto) 71.8 Lymph % (Auto) 16.8 L [place] % (Auto) 7.8 Eos % (Auto) 2.3 Baso % (Auto) 1.3 Neut # (Auto) 8000 H Lymph # (Auto) 1900 [place] # (Auto) 900 Eos # (Auto) 300 Baso # (Auto) 100 Sodium 133 L Potassium 4.0 Chloride 98 Carbon Dioxide 29 BUN 15 Creatinine 0.56 Estimated GFR > 60.0 BUN/Creatinine Ratio 26.8 H Glucose 288 H Hemoglobin A1c Lactate Calcium 8.4 Total Bilirubin AST ALT Alkaline Phosphatase Total Protein Albumin Globulin Albumin/Globulin Ratio Procalcitonin < 0.05 Serum , Qual Urine Color Urine Appearance Urine pH Ur Specific [place] Urine Protein Urine Glucose (UA) Urine Ketones Urine Occult Blood Urine Nitrate Urine Bilirubin Urine Urobilinogen Ur Leukocyte Esterase Urine RBC Urine WBC Urine Bacteria Ur Culture Indicated? 11/27/19 05:10 WBC RBC Hgb Hct MCV MCH MCHC RDW Plt Count Neut % (Auto) Lymph % (Auto) [place] % (Auto) Eos % (Auto) Baso % (Auto) Neut # (Auto) Lymph # (Auto) [place] # (Auto) Eos # (Auto) Baso # (Auto) Sodium Potassium Chloride Carbon Dioxide BUN Creatinine Estimated GFR BUN/Creatinine Ratio Glucose Hemoglobin A1c 10.0 H Lactate Calcium Total Bilirubin AST ALT Alkaline Phosphatase Total Protein Albumin Globulin Albumin/Globulin Ratio Procalcitonin Serum , Qual Urine Color Urine Appearance Urine pH Ur Specific [place] Urine Protein Urine Glucose (UA) Urine Ketones Urine Occult Blood Urine Nitrate Urine Bilirubin Urine Urobilinogen Ur Leukocyte Esterase Urine RBC Urine WBC Urine Bacteria Ur Culture Indicated? Assessment & Plan Assessment & Plan narrative: This is a 43-year-old female who presents to the ER with 4 days of progressive redness, pain and swelling to the right face and jaw with wound drainage over the last day. Patient treated initially with residual doxycycline she had from prior cellulitic infection without improvement. Patient does have a history of MRSA cellulitis. 1. Acute cellulitis right right face and neck, present on admission. Active. -facial wound growing preliminary heavy Staph aureus -facial/neck CT without abscess but on exam cannot rule out abscess that may need draining, consulted Dr. Jasmine who is planning to take patient to OR for I and D -continue vancomycin per pharmacy dosing and trough monitoring -morphine IV and oxycodone as needed moderate severe pain 2. Diabetes mellitus type 2, non-insulin using, chronic, uncontrolled. -glucose 200-300 range, A1c 10.0 indicating poor long-term control -start NovoLog 10 units t.i.d. cc -continue Lantus 35 units HS -hold metformin times [address] contrast then restart 500 mg b.i.d. which is an increase in home dosing -discontinue glyburide 3. Hypertension, chronic, present on admission. Stable. -blood pressure was elevated on admission to the ER at 178/100, increasing to a peak of 217/107 most likely result of pain while in the ER. -the patient received labetalol 20 mg IV with marked improvement in pressures -Continue home regimen of losartan 50 mg daily. 4. Obstructive sleep apnea on CPAP, chronic, present on admission. Stable. -on previous hospitalization the patient was intolerant of hospital equipment, patient has had difficulty using CPAP due to the straps persisting on the inflamed area of her face. -respiratory therapy to consult and evaluate and treat for GOMEZ. -CPAP per protocol. 5. Right temporal meningioma with chronic right-sided tinnitus and schwannoma, chronic, present on admission. Stable. -Currently under surveillance by neurology at [facility], Dr. Gilmer Nunez. 6. Depression with anxiety, chronic, present on admission. Stable. -Continue fluoxetine 60 mg daily at bedtime. 7. Attention deficit disorder, chronic, present on admission. Stable. -Continue methylphenidate 10 mg 2 tablets in the morning and 1 tablet at noon. 8. Insomnia, chronic, present on admission. Stable. -continue patient's zolpidem 10 mg HS as needed Isolation: Contact VTE prophylaxis: Lovenox IV fluid: Saline lock. Diet: Small constant carbohydrate Code status: FULL CODE, patient's significant other Darcy is her surrogate decision maker.
[2019-11-27] MEDS: MORPHINE 2 MG/ML INJ IV ×3 (08:52→18:59)
--- NOTE | 2019-11-27 10:04 | CM.DANOTE ---
DCP/Assessment: Reviewed chart. Patient is a 43yr old female admitted to [facility] with acute right face/neck cellulitis. PCP is Dr. Bales. Primary payor is 1)[facility]. Met with patient explained CM/SW role. Patient reports that she resides in [place] with spouse/Gilberto. 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 Patient reports that she is completely I in all ADL's. Patient uses CPAP at night for sleep apnea. Patient does not anticipate any d/c planning needs at time of d/c. However, she reports that she will need letter of illness for her employer. Patient scheduled to have I&D today. Provider anticipates that she will remain hospitalized for the next 24-48hrs. Patient with h/o depression and anxiety. Both appear well controlled. P: CM team to follow closely for d/c planning needs. Hopeful that patient will d/c on po abx but unknown at this time of additional needs. Patient also will need letter from provider prior to returning to work. EDILBERTO De Leon Discharge Planning/Care Management CM Discharge Assessment Start: 11/27/19 10:01 Freq: Status: Active Protocol: Document 11/27/19 10:02 KJS (Rec: 11/27/19 10:04 [facility] [id number]) Discharge Planning Assessment Assigned Cut Off Saw Set Up Operator EDILBERTO De Leon Contact Information Gilberto Loyola (significant other) [phone] Advance Directives? No History Provided By Patient,Medical Record Has Patient been admitted in last 30 No days? Prior Living Arrangements House Household Members significant other Type of transporation used prior to Drives own vehicle admit Independent with ADL's Yes Is patient alert and oriented? Yes Caregiver for Another No DME Already Rented / Owned Other Comment Uses CPAP at night. Barriers to Discharge No Discharge Plan Home Transportation Arrangement Family/significant other Whiteboard Updated in Patient Room with Yes name and ext. # of Cut Off Saw Set Up Operator Review Status In Process Next Review Type Continued Stay Review
[2019-11-27 10:08] LABS: COVID19 -Nasal RAPID Negative (Negative)
[2019-11-27] MEDS: LACTATED RINGERS 1,000 ML 42 ML IV (14:27)
--- NOTE | 2019-11-27 15:10 | SUR.OPER ---
Supine on padded OR bed, head on pillow, arms secured on padded arm boards at <90 degrees abduction, legs uncrossed, safety belt at thigh, tape over blanket over lower legs.
[2019-11-27] MEDS: BUPIVACAINE 0.25% W/ EPI 30 ML VIAL INJ (15:22)
--- NOTE | 2019-11-27 15:23 | P.OP_ITS ---
Operative Date/Time/Diagnoses Date of procedure: 11/27/19 Time of procedure: 15:23 Pre-op diagnosis: right facial abscess Post-op diagnosis: same Procedure & Clinicians Procedure: incision, drainage, and debridement of right facial wound 2cm x 2cm x 1cm deep, with placement of rudy drain Same procedure as scheduled: Yes Indications: 43 yo woman with acute right facial abscess, history of uncontrolled DM2, morbid obesity, and MRSA Surgeon: Yajaira Gonzalez Click Yes if Unassisted: Yes Anesthesia Type: General Operative Notes Findings: 2cm x 2cm abscess cavity within the subcutaneous fat overlying the platysma Specimen(s): other (fluid from wound for culture) Estimated Blood Loss (mL): 1 Blood products transfused: none Procedure in detail: The patient was brought to the operating room, placed supine on the operating table, and sequential compression devices were placed on both legs and turned on. Appropriate perioperative antibiotics were given. General anesthesia was induced by the anesthesiologist and the patient was intubated with an LMA. The right face was exposed and prepped and draped in sterile fashion with betadine prep. A surgical time-out was then conducted. At this point local anesthetic was injected using 0.25% Marcaine with epi, in the region of the open wound. Pressure was applied around the 1cm x1cm raw surface and purulent fluid poured out. This was sent for culture. A hemostat was gently advanced through the macerated soft tissue into an open space. The macerated wound surface was spread open with a hemostat, revealing a 2cm x 2cm subuctaneous cavity overlying the platysma muscle. More purulent fluid was expressed. The wound was irrigated with saline, and a 1/4 inch rudy drain was advanced into the abscess cavity and secured to the skin with 3-0 Nylon sutures. The betadine was then cleaned off of the skin and a small stack of 4x4 gauze was used to cover the wound and the Rudy drain and secured in place with paper tape. The patient was awakened from anesthesia and extubated. She was transferred onto his [facility]. The patient was then transferred to the postanesthesia care unit in stable condition. She tolerated the procedure well. Needle sponge and instrument counts were correct x2 at the end of the case. Complications: none Post-operative Condition: stable Disposition: Acute Care Plan for aftercare: Wound care, IV antibiotics
--- NOTE | 2019-11-27 15:49 | SUR.PHASEI ---
Report called to Dave
[2019-11-27] MEDS: FLUoxetine 20 MG CAPSULE PO (16:27)
[2019-11-27] MEDS: SODIUM CHLORIDE 0.9% 1,000 ML 84 ML IV (16:27)
[2019-11-27] MEDS: INSULIN ASPART 100 UNIT/ML INSULN PEN 10 UNIT SUBCUT (16:32)
[2019-11-27] MEDS: INSULIN GLARGINE 100 UNIT/ML 3ML PEN 35 UNIT SUBCUT (21:08)
[2019-11-27] MEDS: LOSARTAN 50 MG TABLET PO (21:10)
[2019-11-27] MEDS: ACETAMINOPHEN 325 MG TABLET 975 MG PO (21:10)
[2019-11-27] MEDS: GABAPENTIN 600 MG TABLET PO (21:10)
[2019-11-27] MEDS: ZOLPIDEM 5 MG TABLET 10 MG PO (23:23)
--- NOTE | 2019-11-28 00:11 | PC.NURSE ---
Patient is alert and oriented. Breath sounds diminished but CTA with RA sat of 97%; using home CPAP for sleep. HRR; BP slightly elevated at 151/68. Denies nausea. BT present and abdomen is soft. Denies any dysuria, frequency or urgency with urination; on menses. Is able to turn self in bed and up to bathroom with SBA. Dressing to right neck is CDI; swelling noted and ear lobe is red. Denies pain. Wearing bilateral calf SCD's. Puffiness noted in bilateral feet/ankles. Medicated with Ambien for sleep. Fall risk score is moderate; bed alarm is activated. Is on contact isolation as wound culture is growing staph aureus.
[2019-11-28] MEDS: SODIUM CHLORIDE 0.9% 1,000 ML 84 ML IV (01:18)
[2019-11-28] MEDS: ACETAMINOPHEN 325 MG TABLET 975 MG PO ×3 (05:18→20:30)
[2019-11-28] MEDS: OXYCODONE IR 5 MG TABLET PO (05:20)
[2019-11-28 05:38] VITALS: BP 144/79; PULSE 78; RESP 16; TEMP 36.2; O2SAT 99
[2019-11-28 05:58] LABS: Vancomycin Trough < 5.0 ug/mL (10-20)
[2019-11-28] MEDS: VANCOMYCIN 2,000 MG/400 ML PIGGYBACK 200 MG IV (06:25)
[2019-11-28] MEDS: VANCOMYCIN TROUGH 1 REQUEST MISC (06:26)
[2019-11-28 08:00] VITALS: BP 150/92; PULSE 80; RESP 17; TEMP 36.6; O2SAT 97
[2019-11-28] MEDS: INSULIN ASPART 100 UNIT/ML INSULN PEN SUBCUT ×3 (08:58→16:35)
[2019-11-28] MEDS: INSULIN ASPART 100 UNIT/ML INSULN PEN 10 UNIT SUBCUT ×3 (08:59→16:36)
[2019-11-28] MEDS: ENOXAPARIN 40 MG/0.4 ML SYRINGE SUBCUT (09:06)
[2019-11-28] MEDS: METHYLPHENIDATE 5 MG TABLET 20 MG PO (09:06)
[2019-11-28] MEDS: KETOROLAC 30 MG/ML VIAL IV ×3 (09:07→23:54)
--- NOTE | 2019-11-28 11:03 | P.PN_ITS ---
Subjective Subjective Date Patient Seen: 11/28/19 Interval history: Patient is a 43-year-old female with obesity, uncontrolled diabetes, hypertension admitted due to right facial cellulitis after popping a pimple. Patient is postop day 1. Incision, drainage and debridement of right facial wound with placement of Radha drain. She reports continued pain in swollen areas of ear lobe and face anterior and inferior to the ear. Wound culture positive for Streptococcus and methicillin sensitive Staph aureus. Exam Vital Signs (past 8 hours): - 11/28/19 05:38 11/28/19 08:00 Temperature 97.2 F L 97.8 F Pulse Rate 78 80 Respiratory Rate 16 17 Blood Pressure 144/79 H 150/92 H Pulse Oximetry 99 97 Oxygen Delivery Method Room Air Oxygen Flow Rate 0 Narrative Exam Narrative: General: Alert and cooperative female in no acute distress HEENT: Postop dressing with slight serosanguineous drainage, Radha drain noted in 2 x 2 cm right facial wound, there is erythema and edema extending to the ear lobe and anteriorly and inferiorly along the jawline, there is tenderness in involved areas Objective Labs Result Diagrams: 11/27/19 05:10 11/27/19 05:10 Labs: Laboratory Results - last 24 hr 11/28/19 05:23 Vancomycin Trough < 5.0 L Assessment & Plan Assessment & Plan narrative: Patient is a 43-year-old female with obesity, uncontrolled diabetes, hypertension admitted due to right facial cellulitis after popping a pimple. 1. Acute cellulitis right right face and neck, present on admission. Active. -status post incision, drainage and debridement with placement of [place] drain on 11/27/[address] Jasmine -facial wound culture positive for Streptococcus and methicillin sensitive Staph aureus -discontinued vancomycin -cephazolin 2 g IV q.8 hours -morphine IV and oxycodone as needed moderate severe pain -likely can discharge home tomorrow on oral Bactrim 2. Diabetes mellitus type 2, non-insulin using, chronic, uncontrolled. -glucose staying above 200, A1c 10.0 indicating poor long-term control -started NovoLog 10 units t.i.d. cc -increased Lantus to 40 units HS -hold metformin times [address] contrast then restart 500 mg b.i.d. which is an increase in home dosing -discontinued glyburide 3. Hypertension, chronic, present on admission. Stable. -blood pressure was elevated on admission to the ER at 178/100, increasing to a peak of 217/107 most likely result of pain while in the ER. -the patient received labetalol 20 mg IV with marked improvement in pressures -Continue home regimen of losartan 50 mg daily. 4. Obstructive sleep apnea on CPAP, chronic, present on admission. Stable. -on previous hospitalization the patient was intolerant of hospital equipment, patient has had difficulty using CPAP due to the straps persisting on the inflamed area of her face. -respiratory therapy to consult and evaluate and treat for GOMEZ. -CPAP per protocol. 5. Right temporal meningioma with chronic right-sided tinnitus and schwannoma, chronic, present on admission. Stable. -Currently under surveillance by neurology at [facility], Dr. Gilmer Nunez. 6. Depression with anxiety, chronic, present on admission. Stable. -Continue fluoxetine 60 mg daily at bedtime. 7. Attention deficit disorder, chronic, present on admission. Stable. -Continue methylphenidate 10 mg 2 tablets in the morning and 1 tablet at noon. 8. Insomnia, chronic, present on admission. Stable. -continue patient's zolpidem 10 mg HS as needed
[2019-11-28] MEDS: OXYCODONE IR 10 MG TABLET PO ×3 (11:55→22:11)
[2019-11-28] MEDS: CEFAZOLIN 2 GM/100 ML FROZ.PIGGY IV ×2 (11:56→20:29)
[2019-11-28 12:00] VITALS: BP 147/86; PULSE 78; RESP 17; TEMP 36.8; O2SAT 96
[2019-11-28] MEDS: METHYLPHENIDATE 5 MG TABLET 10 MG PO (12:19)
[2019-11-28 12:49] VITALS: BMI 51.2
--- NOTE | 2019-11-28 12:53 | DIET.PN ---
Dietary Progress Note Assessment: 43y F admitted for cellulitis on R side of face referred to nutrition for uncontrolled DM (BG 312, A1c 10.0) Per [facility] records, pt A1c has been in 7.5-8.2 range from [id number]. A1c in 07/2019 was 11.0 at which point she was started on insulin therapy. 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 Pt reports considerable stress with her job, feels too tired after work to do cardio. Pt has had good glycemic control in the past with different job and enjoys exercising and going to the gym but fell out of the routine. Pt doesn't eat much processed foods but loves to eat, passionate about local food movement. Pt desires to live a long life with less reliance on pharmaceuticals. This is a big motivating factor for pt. Perceived barriers: stressful job, fatigue likely secondary to high BG, portion control Pt is willing to see RD/CDE Faina Kapoor on outpatient basis for help c blood sugar management and weight loss, provided pamphlet. With pt's hx of good glycemic control, motivation from this hospitalization, and willingness to participate in OP DM nutrition, pt good candidate for lifestyle change. HT: 172.7cm WT: 153kg UBW: 150kg BMI: 51.3 Labs: BG since admit >200 c highest 312, A1c 10.0 Nutrition Diagnosis: altered nutrition related laboratory values (BG, A1c) r/t endocrine dysfunction aeb pt BG >200 since admission, A1c 10.0 H, cellulitis of R side of face. Interventions: 1. Discussed role of high BG in recurrent skin infections 2. Discussed in detail barriers to good glycemic control and motivators for change. 3. Discussed role of intentional physical activity for DM and morbid obesity. 4. Acquainted pt to hospital menu, encouraging using it as study guide for carb counting and meal planning. Diet Order: Heart Healthy/Consistent Carb 45g/meal EER: 2400kcal (-500kcal to support wt loss), 120g PRO (0.8g/kg) Monitoring/Evaluations: f/u c pt once discharged to schedule OP nutrition visits.
[2019-11-28] MEDS: DOCUSATE 100 MG CAPSULE 200 MG PO (13:04)
--- NOTE | 2019-11-28 14:39 | PM.PN.1 ---
Subjective Subjective Date Patient Seen: 11/28/19 Time Patient Seen: 15:47 Interval history: Pain is better, but pt complains of fullness in the upper part of the right face and the lower border of the ear. Overall feels better. Exam Vital Signs (past 8 hours): - 11/28/19 08:00 11/28/19 12:00 Temperature 97.8 F 98.2 F Pulse Rate 80 78 Respiratory Rate 17 17 Blood Pressure 150/92 H 147/86 H Pulse Oximetry 97 96 Oxygen Delivery Method Room Air Oxygen Flow Rate 0 Narrative Exam Narrative: GENERAL: Alert, comfortable. Morbidly obese. Answers questions promptly and appropriately. Vital signs noted. HENT: Normocephalic, atraumatic. erythema of the lower ear and right face anterior to the ear; rudy drain in place with purulent drainage around it; surrounding erythema is receding EYES: Conjunctiva pink, sclera white, no periorbital swelling. CARDIOVASCULAR: Regular rate. BL pedal edema RESPIRATORY: Non-tachypneic, breathing comfortably on room air. GASTROINTESTINAL: Abdomen soft and non-distended; morbidly obese GENITALURINARY: No flank tenderness. MUSCULOSKELETAL: Equal tone and mass bilaterally. SKIN: otherwise warm, dry, soft, appropriate color for ethnicity. No other lesions, rashes, or wounds. NEURO: Alert and Oriented X 3. No gross sensory deficits, or cognitive issues. PSYCH: Appropriate affect and mood. Objective Labs Result Diagrams: 11/27/19 05:10 11/27/19 05:10 Labs: Laboratory Results - last 24 hr 11/28/19 05:23 Vancomycin Trough < 5.0 L Assessment & Plan Assessment and plan (1) Cellulitis: Qualifiers: Site of cellulitis: face Qualified Code(s): L03.211 - Cellulitis of face Current visit: Yes Status: Acute (2) Abscess of face: Current visit: Yes Status: Acute Assessment & Plan narrative: 43 yo woman POD#1 s/p I and D of right face abscess. Cellulitis is improving, but not resolved. Will see how it looks tomorrow AM. If not markedly better may need to re-image. Plan: Follow up cultures, taper abx as appropriate wound care dressing changes PRN Will see in AM and possibly remove rudy before DC COVID-19 COVID-19 status: Negative Time Spent With Patient Time with patient: 15-24 minutes Quality VTE Deep Vein Thrombosis/Pulmonary Embolism Present on Admission: No
[2019-11-28 15:45] VITALS: BP 154/81; PULSE 86; RESP 20; TEMP 36.2; O2SAT 98
[2019-11-28] MEDS: METFORMIN HCL 500 MG TABLET PO (16:40)
[2019-11-28] MEDS: FLUoxetine 20 MG CAPSULE PO (16:40)
[2019-11-28 20:30] VITALS: BP 154/99; PULSE 106; RESP 20; TEMP 36.2
[2019-11-28] MEDS: LOSARTAN 50 MG TABLET PO (20:30)
[2019-11-28] MEDS: GABAPENTIN 600 MG TABLET PO (20:30)
[2019-11-28] MEDS: INSULIN GLARGINE 100 UNIT/ML 3ML PEN 40 UNIT SUBCUT (20:31)
--- NOTE | 2019-11-28 23:19 | PC.NURSE ---
dressing changed as it was falling off, scant amount of serosang drainage.
[2019-11-28 23:30] VITALS: BP 151/80; PULSE 89; RESP 20; TEMP 36.1; O2SAT 99
[2019-11-28] MEDS: ZOLPIDEM 5 MG TABLET 10 MG PO (23:32)
[2019-11-29] MEDS: MELATONIN 3 MG TABLET 6 MG PO (02:46)
[2019-11-29 03:00] VITALS: BP 151/72; PULSE 90; RESP 16; TEMP 36.1; O2SAT 98
[2019-11-29] MEDS: CEFAZOLIN 2 GM/100 ML FROZ.PIGGY IV (04:15)
[2019-11-29] MEDS: ACETAMINOPHEN 325 MG TABLET 975 MG PO (05:05)
[2019-11-29 05:37] LABS: Add Manual Diff / Slide Review NO; Basophils Absolute Auto 100 /uL (0-100); Basophils Percent Auto 1.4 % (0-2); Eosinophils Absolute Auto 300 /uL (0-450); Eosinophils Percent Auto 4.3 % (2-4); Hematocrit 34.9 % (36-46); Lymphocytes Absolute Auto 2400 /uL (1100-4500); Mean Corpuscular HGB Conc 34.4 % (30-36); Mean Corpuscular Hemoglobin 29.6 PG (26-34); Mean Corpuscular Volume 86.2 fL (80-100); Monocytes Absolute Auto 500 /uL (0-900); Monocytes Percent Auto 7.3 % (3-14); Neutrophils Absolute Auto 3700 /uL (1500-7000); Platelet Count 246 X10^3/uL (150-400); Red Blood Cell Count 4.05 X10^6/uL (4.0-5.2); Red Cell Distribution Width 12.7 % (11.6-14.8)
[2019-11-29 07:32] VITALS: BP 149/70; PULSE 85; RESP 16; TEMP 36.1; O2SAT 95
[2019-11-29] MEDS: OXYCODONE IR 10 MG TABLET PO ×2 (08:14→13:14)
[2019-11-29] MEDS: METHYLPHENIDATE 5 MG TABLET 20 MG PO (08:14)
[2019-11-29] MEDS: INSULIN ASPART 100 UNIT/ML INSULN PEN 10 UNIT SUBCUT (08:15)
[2019-11-29] MEDS: INSULIN ASPART 100 UNIT/ML INSULN PEN SUBCUT (08:15)
[2019-11-29] MEDS: ENOXAPARIN 40 MG/0.4 ML SYRINGE SUBCUT (08:15)
[2019-11-29] MEDS: DOCUSATE 100 MG CAPSULE 200 MG PO (08:24)
[2019-11-29] MEDS: METFORMIN HCL 500 MG TABLET PO ×2 (08:24→13:13)
[2019-11-29] MEDS: KETOROLAC 30 MG/ML VIAL IV (10:14)
[2019-11-29] MEDS: SODIUM CHLORIDE 0.9% FLUSH 10 ML IV (10:14)
--- NOTE | 2019-11-29 11:03 | CM.DPNOTE ---
DC Note DC order in place, home today on oral abx w/family to assist prn. No SW needs identified. JW
--- NOTE | 2019-11-29 11:10 | PM.PN.1 ---
Subjective Subjective Date Patient Seen: 11/29/19 Time Patient Seen: 10:00 Interval history: No acute events overnight. Pt c/o hot firm area superior to the area of abscess drainage. Exam Vital Signs (past 8 hours): - 11/29/19 07:32 Temperature 96.9 F L Pulse Rate 85 Respiratory Rate 16 Blood Pressure 149/70 H Pulse Oximetry 95 Oxygen Delivery Method Room Air Oxygen Flow Rate 0 Narrative Exam Narrative: GENERAL: Alert, comfortable. Morbidly obese. Answers questions promptly and appropriately. Vital signs noted. HENT: Normocephalic, atraumatic. rudy drain present in the open wound; 1cm x 1cm wound is open with no active drainage; no foul odor; Firm induration is seen superior to the wound tracking up to the tragus and involving the ear lobe; markedly tender and erythematous; this has not improved since the abscess drainage; inferior to the site of the abscess has improved markedly with minimal erythema and induration below the wound; rudy drain removed during the exam RESPIRATORY: Non-tachypneic, breathing comfortably on room air. MUSCULOSKELETAL: Equal tone and mass bilaterally. SKIN: otherwise warm, dry, soft, appropriate color for ethnicity. No other lesions, rashes, or wounds. NEURO: Alert and Oriented X 3. No gross sensory deficits, or cognitive issues. PSYCH: Appropriate affect and mood. Objective Labs Result Diagrams: 11/29/19 05:15 11/27/19 05:10 Labs: Laboratory Results - last 24 hr 11/29/19 05:15 WBC 7.0 RBC 4.05 Hgb 12.0 Hct 34.9 L MCV 86.2 MCH 29.6 MCHC 34.4 RDW 12.7 Plt Count 246 Neut % (Auto) 53.0 Lymph % (Auto) 34.0 [place] % (Auto) 7.3 Eos % (Auto) 4.3 H Baso % (Auto) 1.4 Neut # (Auto) 3700 Lymph # (Auto) 2400 [place] # (Auto) 500 Eos # (Auto) 300 Baso # (Auto) 100 Assessment & Plan Assessment and plan (1) Morbid obesity with BMI of 45.0-49.9, adult: Current visit: No Status: Acute (2) Type 2 diabetes mellitus: Current visit: No Status: Chronic (3) Abscess of face: Current visit: Yes Status: Acute (4) Cellulitis: Qualifiers: Site of cellulitis: face Qualified Code(s): L03.211 - Cellulitis of face Current visit: Yes Status: Acute Assessment & Plan narrative: 43 yo woman POD#2 s/p I and D of right face abscess. I am concerned that the erythema, heat, and tenderness superior to the abscess tracking up to the tragus has not improved. Inferior to the wound the cellulitis is much improved. I would consider having the patient seen by ENT. If she can be seen today in the hospital that would be ideal. Wound care: wash wound 1-2 times per day with shower using gentle soap and water running into the wound but not scrubbing or probing the wound; pat dry and keep a dry dressing covering the wound Recommendations: ENT to see if discharged the patient may follow up with me next week if not following with ENT, or if she has any wound care or surgical needs not being managed by ENT wound care as above COVID-19 COVID-19 status: Negative Time Spent With Patient Time with patient: 15-24 minutes Quality VTE Deep Vein Thrombosis/Pulmonary Embolism Present on Admission: No
[2019-11-29 13:05] VITALS: BP 154/94; PULSE 79; RESP 16; TEMP 36.5; O2SAT 97
--- NOTE | 2019-11-29 13:22 | PC.NURSE ---
Discharge: Pt feels ready to d/c home today. Skin is much improved from when seen by this provider but does have an area of firmness by the ear, the lower half of the ear lobe is swollen and red but improved from [address] Gonzalez removed rudy drain and she gave pt wound care instructions for same, 4x4's and 2 syringes given until pt can obtain her own. Dr. Sutton also reviewed d/c instructions and pt was able to verb what her care instructions were from both doctors. Pain in control and meds esent except for rx for vicodin, she has rx. Pt is up in room indep and denies any concerns about going home. Reviewed d/c packet. Questions answered. Pt d/c home via auto with friend. Denies any concerns about same.
--- NOTE | 2019-11-29 18:19 | P.DS_ITS ---
History of Present Illness History of Present Illness Chief complaint: sore on lt side of face sent per phys Narrative: Ms. Mary Anne Maria is a 43-year-old female with a past medical history significant for hypertension, insulin-dependent diabetes mellitus type 2, with complication of neuropathy, obstructive sleep apnea on CPAP, right temporal meningioma with chronic right-sided tinnitus with schwannoma, depr ession with anxiety, attention deficit disorder and morbid obesity who presented to the ED for right facial swelling. The patient reports 4 days ago developing which she believed to be a pimple on her right face at the angle of the jaw. She manipulated the lesion and developed progressive worsening redness swelling and pain extending up to including the ear lobe and to the lateral neck and along the jawline. Patient has had associated symptoms of malaise and pain with swallowing. She self-treated with 4 doses of doxycycline over 2 days which she had from previous MRSA cellulitis. She denies complaints of fevers or chills and has no known COVID-19 exposures. She denies complaints of changes in vision or hearing no nasal drainage. She endorses worsening right ear tinnitus with but no muffling of sound. She denies complaints of chest pain or palpitations, shortness of breath cough or wheezing. She reports no abdominal pain and has no heartburn, nausea or vomiting. Denies changes in bowel or bladder habits. She started her menstrual period 2 days ago. Upon arrival to the ER the patient has a temperature 97? with heart rate of 110, blood pressure 178/100, respirations of 14, saturating 97% on room air. A CT is obtained finding extensive soft tissue inflammation of the right lateral neck and ear without mastoid involvement or abscess cavity. On laboratory analysis the patient has white count of 10.8, hemoglobin of 14.0, hematocrit of 39.8, platelets of 252. Her electrolytes are all within normal range she has a BUN of 12 and a creatinine of 0.33. She has a nonfasting glucose of 312. Her liver functions are all within normal range and has an albumin of 4.0. Her lactic acid is 1.4 and has a procalcitonin less than 0.05. Serum test is negative. Urinalysis finds red urine with with a specific gravity of 1.020, 2+ glucose, 3+ blood but negative for leukocyte esterase, nitrites or WBCs. Culture sent of the wound with g stain finding gram-positive cocci. The patient is given vancomycin and ceftriaxone in the emergency department. The patient is admitted to the medicine service for treatment of facial cellulitis. Discharge Providers Provider Date of admission: 11/26/19 19:13 Discharge Date: 11/29/19 Primary care physician: Trino Bales MD Consults: 11/26/19 20:35 Consult to Dietitian, Adult Routine Comment: Reason For Exam: Diabetic with hyperglycemia, morbid obesity Consult to Discharge Planning Routine Comment: 11/26/19 21:44 Consult to Respiratory Therapy Evaluate & Treat Comment: GOMEZ, bring in home CPAP Physician Instructions: Evaluate and treat 11/27/19 08:16 Consult to Physician Routine Comment: Consulting Provider: Yajaira Gonzalez Reason for consultation: FACIAL CELLULITIS/POSS ABSCESS Has provider been notified: Yes Discharge provider: Morris Sutton MD Summary Hospital Course Discharge Diagnosis: 1. Facial abscess cellulitis, right-sided 2. Type 2 diabetes mellitus poor control 3. Hypertension 4. Obstructive sleep apnea Procedures: Irrigation and debridement of facial abscess with placement of [place] drain on 11/27/[address] Jasmine Hospital Course: Patient was admitted for right facial cellulitis and abscess. Dr. Jasmine was consulted and performed I and D with placement of [place] drain. Patient was treated initially with vancomycin. Antibiotic was then switched to cephazolin upon wound culture results showing Streptococcus and methicillin sensitive Staph aureus. Patient has overall improvement in involved area. There remains a swollen indurated area on the upper mandible about 1 cm or 2 cm above the area of I and D. I discussed findings with Dr. Yoel Maradiaga crop production advisor for ENT. He did not feel patient needed urgent ENT consultation but could see ENT in the clinic early next week if this area is not reducing in size. Patient instructed to aby ly warm compresses several times daily. The Radha drain was removed on day of discharge. She is being sent home on oral cephalexin which should be adequate to treat the bacteria in her wound culture. Patient's hemoglobin A1c is 10.0 indicating poor control. Her Lantus was increased to 40 units HS and she was started on NovoLog 10 units t.i.d.. Her metformin was increased to 500 mg b.i.d. and it can be further adjusted if necessary. Her glyburide was discontinued. She will follow-up with PCP on diabetes management. Her blood pressure remained elevated and losartan dose was increased to 100 mg q.d.. She will follow-up with PCP. Exam Vital Signs (past 8 hours): - 11/29/19 13:05 Temperature 97.7 F Pulse Rate 79 Respiratory Rate 16 Blood Pressure 154/94 H Pulse Oximetry 97 Oxygen Delivery Method Room Air Oxygen Flow Rate 0 Objective Labs Result Diagrams: 11/29/19 05:15 11/27/19 05:10 Labs: Laboratory Results - last 24 hr 11/29/19 05:15 WBC 7.0 RBC 4.05 Hgb 12.0 Hct 34.9 L MCV 86.2 MCH 29.6 MCHC 34.4 RDW 12.7 Plt Count 246 Neut % (Auto) 53.0 Lymph % (Auto) 34.0 [place] % (Auto) 7.3 Eos % (Auto) 4.3 H Baso % (Auto) 1.4 Neut # (Auto) 3700 Lymph # (Auto) 2400 [place] # (Auto) 500 Eos # (Auto) 300 Baso # (Auto) 100 Discharge Plan Discharge Plan Patient Disposition: Home Discharge orders & Medications Prescriptions: New losartan 100 mg tablet 100 mg PO DAILY Qty: 30 RF: 0 insulin aspart U-100 [Novolog Flexpen U-100 Insulin] 100 unit/mL (3 mL) insulin pen 10 unit SUBCUT TIDWM Qty: 15 RF: 0 cephalexin 500 mg capsule 500 mg PO QID 7 Days Qty: 28 RF: 0 clindamycin phosphate 1 % gel 1 applictn TOP DAILY Qty: 30 RF: 0 hydrocodone-acetaminophen [[place]] 5-325 mg tablet 1 tab PO TID PRN (Reason: pain) Qty: 10 RF: 0 Continued methylphenidate HCl 10 mg tablet See Rx Instructions .ROUTE .COMPLEX RF: 0 gabapentin 300 mg capsule 600 mg PO BEDTIME RF: 0 zolpidem 10 mg tablet 10 mg PO BEDTIME PRN (Reason: Insomnia) RF: 0 fluoxetine 20 mg capsule 20 mg PO QPM RF: 0 Changed Lantus Solostar U-100 Insulin 100 unit/mL (3 mL) insulin pen 40 unit SUBCUT BEDTIME Qty: 0 RF: 0 metformin 500 mg tablet 500 mg PO BID Qty: 60 RF: 0 Discontinued losartan 50 mg tablet 50 mg PO BEDTIME RF: 0 glyburide 5 mg tablet 10 mg PO QPM RF: 0 No Action (DME) pen needle, diabetic 32 gauge x 5/16 needle See Rx Instructions .ROUTE .MEDSUPPLY Qty: 100 RF: 0 (DME) blood-glucose meter [Accu-Chek Yvonne Plus Meter] Misc See Rx Instructions .ROUTE .MEDSUPPLY Qty: 1 RF: 0 (DME) lancets [Accu-Chek Fastclix Lancet Drum] Misc See Rx Instructions .ROUTE .MEDSUPPLY Qty: 50 RF: 0 (DME) blood sugar diagnostic [Accu-Chek Yvonne Plus test strp] Strip See Rx Instructions .ROUTE .MEDSUPPLY Qty: 100 RF: 0 Follow up/Referrals: Trino Bales MD [Primary Care Provider] - Yajaira Gonzalez MD [Physician] - Discharge Health Status Multidrug resistant organism: No MDRO Diet/Activity/Treatments Diet: Diet as Tolerated Skin/Wound/Dressing Care Dressing: Wound care per Dr. Gonzalez, cleanse area around ear, rinse with a syringe the are area the radha came out of gently, do not put the syringe in the wound. Other wound treatment: Apply warm compresses to wound several times daily. Mon itor for increased swelling or redness. Schedule appointment with Dr Hector Norman for ENT evaluation if the area near the ear is not improving over next few days. Take ibuprofen 2 tablets every 4 to 6 hours as needed for pain relief. Visit Report/Discharge Packet Instructions: DI for Cellulitis -- Adult, Acne, DI for Constipation, DI for Incision and Drainage Discharge Data Primary Care Provider: Trino Bales Discharges patient from system. Discharge Date/Time: 11/29/19 13:20 Quality VTE Deep Vein Thrombosis/Pulmonary Embolism Present on Admission: No
== END 2019-11-29 13:20 | disposition home or self-care (01) | DRG 571 ==
LOC: ED 13:57 → AC 19:13
PROVIDERS: Internal Medicine; Nurse Practitioner Adult Health; Surgery; Admitting Provider Internal Medicine; Emergency Provider Nurse Practitioner Family; Family Provider Internal Medicine; PCP Internal Medicine; Referring Provider Nurse Practitioner Family; Visit Provider Internal Medicine
PROC: 0JB40ZZ Excision of Right Neck Subcutaneous Tissue and Fascia, Open Approach (ICD-10-PCS; principal; 2019-11-27 16:30)
DX: L03.211 Cellulitis of face (principal); L03.221 Cellulitis of neck; Z68.43 Body mass index [BMI] 50.0-59.9, adult; L02.01 Cutaneous abscess of face; E66.01 Morbid (severe) obesity due to excess calories; I10 Essential (primary) hypertension; B95.62 Methicillin resistant Staphylococcus aureus infection as the cause of diseases classified elsewhere; E11.65 Type 2 diabetes mellitus with hyperglycemia; E11.40 Type 2 diabetes mellitus with diabetic neuropathy, unspecified; G47.33 Obstructive sleep apnea (adult) (pediatric); F32.9 Major depressive disorder, single episode, unspecified; F41.9 Anxiety disorder, unspecified; G47.00 Insomnia, unspecified; D32.0 Benign neoplasm of cerebral meninges; H93.11 Tinnitus, right ear; B95.5 Unspecified streptococcus as the cause of diseases classified elsewhere; F98.8 Other specified behavioral and emotional disorders with onset usually occurring in childhood and adolescence; Z87.891 Personal history of nicotine dependence; Z79.01 Long term (current) use of anticoagulants; Z11.59 Encounter for screening for other viral diseases
CPT/HCPCS: 36415; 70491; 80048; 80053; 80202; 81001; 82962; 83036; 83605; 84145; 84703; 85025; 87040; 87070; 87075; 87077; 87147; 87186; 87205; 87635; 93005; 94760; 96361; 96365; 96367; 96375; 96376; 99284; 99406; J0360; J0690; J0696; J1170; J1644; J1650; J1885; J2270; J2405; J2704; J3010; Q9967

== ENCOUNTER → 2020-03-16 13:54 | Outpatient (CLI) | payer OTHER, SELFPAY ==
[2019-11-26 20:30] VITALS: BMI 50.8
[2020-03-16 14:49] LABS: Add Manual Diff / Slide Review NO; Basophils Absolute Auto 100 /uL (0-100); Basophils Percent Auto 1.3 % (0-2); Eosinophils Absolute Auto 200 /uL (0-450); Hemoglobin 14.4 g/dL (12.0-16.0); Lymphocytes Absolute Auto 1600 /uL (1100-4500); Lymphocytes Percent Auto 24.7 % (25-40); Mean Corpuscular HGB Conc 34.2 % (30-36); Mean Corpuscular Hemoglobin 29.4 PG (26-34); Mean Corpuscular Volume 85.9 fL (80-100); Monocytes Absolute Auto 300 /uL (0-900); Monocytes Percent Auto 5.1 % (3-14); Neutrophils Absolute Auto 4300 /uL (1500-7000); Neutrophils Percent Auto 65.9 % (50-75); Platelet Count 238 X10^3/uL (150-400); Red Blood Cell Count 4.89 X10^6/uL (4.0-5.2); Red Cell Distribution Width 13.1 % (11.6-14.8); White Blood Cell Count 6.5 X10^3/uL (4.5-11.0)
[2020-03-16 14:53] LABS: Hemoglobin A1C% w Est Avg Glu 10.5 % (4.0-6.0)
[2020-03-16 15:13] LABS: Alanine Aminotransferase 50 IU/L (<35); Albumin Globulin Ratio 1.3 (1.0-2.8); Alkaline Phosphatase 73 U/L (38-126); Aspartate Aminotransferase 51 IU/L (14-36); BUN Creatinine Ratio 29.7 (6-22); Bilirubin Total 0.4 mg/dL (0.2-1.3); Blood Urea Nitrogen 11 mg/dL (7-17); Calcium 8.9 mg/dL (8.4-10.2); Carbon Dioxide 25 mmol/L (22-32); Chloride 102 mmol/L (98-107); Cholesterol 231 mg/dL (140-199); Estimated Glomerular Filt Rate > 60.0 mL/min (>60); Globulin 3.1 g/dL (1.7-4.1); Glucose 211 mg/dL (70-100); HDL Cholesterol 59 mg/dL (40-60); HEMOLYSIS < 15 (0-50); LDL Cholesterol Calculated 140 mg/dL (<100); Potassium 4.5 mmol/L (3.4-5.1); Sodium 135 mmol/L (137-145); Total Protein 7.1 g/dL (6.3-8.2); Triglycerides 162 mg/dL (35-150)
[2020-03-16 16:07] LABS: Microalbumi Creatinin Ratio Ur 1560.3 ug/mg CR (<30)
== END ==
PROVIDERS: Family Provider Internal Medicine; PCP Internal Medicine; Referring Provider Internal Medicine; Visit Provider Internal Medicine
DX: E11.8 Type 2 diabetes mellitus with unspecified complications (principal); E11.65 Type 2 diabetes mellitus with hyperglycemia; I10 Essential (primary) hypertension
CPT/HCPCS: 36415; 80053; 80061; 82043; 82570; 83036; 85025

== ENCOUNTER → 2020-10-01 11:26 | Outpatient (CLI) | payer OTHER, SELFPAY ==
[2019-11-26 20:30] VITALS: BMI 50.8
[2020-10-01] MEDS: COVID-19 VACC #1, MRNA(MOD) 100 MCG/0.5 ML VIAL IM (11:31)
== END ==
PROVIDERS: Family Provider Internal Medicine; PCP Internal Medicine; Visit Provider Internal Medicine
DX: Z23 Encounter for immunization (principal)
CPT/HCPCS: 0011A; 91301

== ENCOUNTER → 2020-10-29 11:18 | Outpatient (CLI) | payer OTHER, SELFPAY ==
[2019-11-26 20:30] VITALS: BMI 50.8
[2020-10-29] MEDS: COVID-19 VACC #2, MRNA(MOD) 100 MCG/0.5 ML VIAL IM (11:30)
== END ==
PROVIDERS: Family Provider Internal Medicine; PCP Internal Medicine; Visit Provider Internal Medicine
DX: Z23 Encounter for immunization (principal)
CPT/HCPCS: 0012A; 91301

== ENCOUNTER → 2022-04-08 10:24 | Outpatient (CLI) | payer OTHER, SELFPAY ==
[2019-11-26 20:30] VITALS: BMI 50.8
[2022-04-08 11:32] LABS: Add Manual Diff / Slide Review NO; Basophils Absolute Auto 100 /uL (0-100); Basophils Percent Auto 1.5 % (0-2); Eosinophils Absolute Auto 200 /uL (0-450); Eosinophils Percent Auto 3.6 % (2-4); Hematocrit 40.6 % (36-46); Hemoglobin 14.3 g/dL (12.0-16.0); Lymphocytes Absolute Auto 1900 /uL (1100-4500); Mean Corpuscular HGB Conc 35.3 % (30-36); Mean Corpuscular Hemoglobin 30.8 PG (26-34); Mean Corpuscular Volume 87.2 fL (80-100); Monocytes Absolute Auto 500 /uL (0-900); Monocytes Percent Auto 6.9 % (3-14); Neutrophils Absolute Auto 4100 /uL (1500-7000); Platelet Count 270 X10^3/uL (150-400); Red Blood Cell Count 4.65 X10^6/uL (4.0-5.2); Red Cell Distribution Width 12.6 % (11.6-14.8); White Blood Cell Count 6.9 X10^3/uL (4.5-11.0)
[2022-04-08 11:44] LABS: Hemoglobin A1C% w Est Avg Glu 7.9 % (4.0-6.0)
[2022-04-08 12:16] LABS: Alanine Aminotransferase 26 IU/L (<35); Albumin 4.2 g/dL (3.5-5.0); Albumin Globulin Ratio 1.2 (1.0-2.8); Alkaline Phosphatase 63 U/L (38-126); Aspartate Aminotransferase 20 IU/L (14-36); BUN Creatinine Ratio 24.6 (6-22); Bilirubin Total 0.5 mg/dL (0.2-1.3); Blood Urea Nitrogen 14 mg/dL (7-17); Calcium 9.3 mg/dL (8.4-10.2); Carbon Dioxide 29 mmol/L (22-32); Chloride 98 mmol/L (98-107); Cholesterol 218 mg/dL (140-199); Estimated Glomerular Filt Rate > 60 mL/min (>60); Globulin 3.4 g/dL (1.7-4.1); Glucose 246 mg/dL (70-100); HDL Cholesterol 55 mg/dL (40-60); HEMOLYSIS < 15 (0-50); LDL Cholesterol Calculated 143 mg/dL (<100); Potassium 4.4 mmol/L (3.4-5.1); Sodium 135 mmol/L (137-145); Total Protein 7.6 g/dL (6.3-8.2); Triglycerides 101 mg/dL (35-150)
== END ==
PROVIDERS: Family Provider Internal Medicine; PCP Internal Medicine; Referring Provider Internal Medicine; Visit Provider Internal Medicine
DX: E78.5 Hyperlipidemia, unspecified (principal); I10 Essential (primary) hypertension
CPT/HCPCS: 36415; 80053; 80061; 83036; 85025

== ENCOUNTER → 2024-05-09 17:26 | Outpatient (CLI) | payer OTHER, SELFPAY ==
[2019-11-26 20:30] VITALS: BMI 50.8
--- NOTE | 2024-05-09 17:27 | DI.MRI.S_ITS ---
PROCEDURE: MR BRAIN (IAC) WWO CON INDICATIONS: hearing loss, unilateral vestibular schwannoma TECHNIQUE: Noncontrast sagittal T1 spin echo, axial FLAIR, axial gradient echo, axial diffusion and ADC through the brain. Axial thin-slice 3D CISS, coronal TruFISP, axial T1 spin echo with fat saturation through the internal auditory canals. After the administration of contrast, thin slice axial and coronal T1 spin echo with fat saturation through the internal auditory canals, and axial and coronal and sagittal T1 spin echo with fat saturation through the brain. COMPARISON: [facility], MR, MR BRAIN (IAC) WWO CON, 12/05/2018, 15:54. FINDINGS: Image quality: Excellent. Cerebellopontine angles: There is again seen a mass centered within the right internal auditory canal, which partially emanates into the right cerebellopontine angle cistern. On the current study, this measures 15 x 7 mm in greatest axial dimension, with a craniocaudal extent of 7 mm. Previously, this measured 7 x 4 x 4 mm. No additional masses or abnormal enhancement can be seen within the internal auditory canals or the cerebellopontine angle cisterns. CSF spaces: Ventricles are normal in size and shape. No extra-axial fluid collections. Basal cisterns are patent. Brain: No intracranial bleeds or mass effects. Alvarado-white matter interface is intact. No abnormal intracranial enhancement. Diffusion weighted images demonstrate no acute ischemic insults. Brainstem appears normal. Normal intravascular flow voids are present. Skull and face: Calvarial marrow signal is normal. Orbits appear normal. Sinuses: Sinuses and mastoids are clear. IMPRESSION: There is a growing mass centered within the right internal auditory canal, which represents a vestibular schwannoma until proven otherwise. Dictated by: Prashanth Gutierrez M.D. on 05/10/2024 at 14:24 Approved by: Prashanth Gutierrez M.D. on 05/10/2024 at 14:26
== END ==
LOC: MRI 17:26
PROVIDERS: Family Provider Internal Medicine; PCP Internal Medicine; Referring Provider Otolaryngology; Visit Provider Otolaryngology
DX: D33.3 Benign neoplasm of cranial nerves (principal)
CPT/HCPCS: 70553; A9579

== ENCOUNTER 2024-05-17 17:24 | Emergency (ER) | payer OTHER, SELFPAY ==
[2019-11-26 20:30] VITALS: BMI 50.8
[2024-05-17] VITALS (21 sets, daily range): BP systolic 170–239; BP diastolic 79–102; PULSE 87–102; RESP 13–27; TEMP 36.3; O2SAT 97–98; BMI 45.6
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
[2024-05-17] MEDS: HYDRALAZINE 20 MG/ML VIAL 10 MG IV (19:29)
[2024-05-17 19:31] LABS: Add Manual Diff / Slide Review NO; Basophils Absolute Auto 100 /uL (0-100); Basophils Percent Auto 1.6 % (0-2); Eosinophils Absolute Auto 400 /uL (0-450); Eosinophils Percent Auto 5.7 % (2-4); Hematocrit 39.9 % (36-46); Hemoglobin 13.7 g/dL (12.0-16.0); Lymphocytes Absolute Auto 1500 /uL (1100-4500); Mean Corpuscular HGB Conc 34.2 % (30-36); Mean Corpuscular Hemoglobin 31.2 PG (26-34); Mean Corpuscular Volume 91.2 fL (80-100); Monocytes Absolute Auto 500 /uL (0-900); Monocytes Percent Auto 7.8 % (3-14); Neutrophils Absolute Auto 3900 /uL (1500-7000); Neutrophils Percent Auto 60.9 % (50-75); Platelet Count 251 X10^3/uL (150-400); Red Blood Cell Count 4.38 X10^6/uL (4.0-5.2); Red Cell Distribution Width 13.4 % (11.6-14.8); White Blood Cell Count 6.4 X10^3/uL (4.5-11.0)
[2024-05-17 19:45] LABS: Alanine Aminotransferase 29 IU/L (<35); Albumin Globulin Ratio 1.4 (1.0-2.8); Alkaline Phosphatase 45 U/L (38-126); Aspartate Aminotransferase 33 IU/L (14-36); BUN Creatinine Ratio 22.4 (6-22); Bilirubin Total 0.4 mg/dL (0.2-1.3); Blood Urea Nitrogen 15 mg/dL (7-17); Calcium 8.9 mg/dL (8.4-10.2); Carbon Dioxide 26 mmol/L (22-32); Chloride 106 mmol/L (98-107); Estimated Glomerular Filt Rate > 60 mL/min (>60); Globulin 2.9 g/dL (1.7-4.1); Glucose 163 mg/dL (70-100); HEMOLYSIS 15 (0-50); Magnesium 1.8 mg/dL (1.6-2.3); Potassium 4.3 mmol/L (3.4-5.1); Sodium 138 mmol/L (137-145); Total Protein 6.9 g/dL (6.3-8.2)
[2024-05-17 20:06] LABS: Thyroid Stimulating Hormone 1.46 uIU/mL (0.47-4.68)
--- NOTE | 2024-05-17 20:34 | EKG_ITS ---
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
== END 2024-05-17 21:41 | disposition home or self-care (01) ==
PROVIDERS: Emergency Provider Emergency Medicine; Family Provider Internal Medicine; PCP Internal Medicine
DX: G47.19 Other hypersomnia (principal); I10 Essential (primary) hypertension; V49.9XXA Car occupant (driver) (passenger) injured in unspecified traffic accident, initial encounter
CPT/HCPCS: 36415; 70450; 80053; 83735; 84443; 85025; 93005; 96374; 99284; J0360